=== PATIENT | female | born 1930 | race Hispanic/Latino ===

== ENCOUNTER 2017-03-27 20:13 | Emergency (ER) | payer MEDICARE ==
--- NOTE | 2017-03-27 20:27 | C.PDOC ---
History Of Present Illness Patient presents to ED with complaints of tiredness, weakness and throat discomfort intermittently for 10 days. Patient states symptoms worsened after she received the flu vaccine. Patient denies nausea, vomiting, diarrhea, cough, fever or any other complaints at this time. Time Seen by Provider: 03/27/17 20:27 Chief Complaint (Nursing): Flu-like Symptoms History Per: Patient History/Exam Limitations: no limitations Onset/Duration Of Symptoms: Days Current Symptoms Are (Timing): Still Present Location Of Pain: Throat Sick Contacts (Context): None Associated Symptoms: denies: Nausea, Vomiting, Diarrhea Ear Symptoms: Bilateral: None Severity: Mild Pain Scale Rating Of: 2 Past Medical History Reviewed: Historical Data, Nursing Documentation, Vital Signs Vital Signs: Last Vital Signs Temp 97 F L 03/28/17 00:11 Pulse 70 03/28/17 00:11 Resp 20 03/28/17 00:11 BP 114/78 03/28/17 00:11 Pulse Ox 98 03/28/17 00:11 - Medical History PMH: HTN Surgical History: No Surg Hx Family History: States: No Known Family Hx - Social History Hx Tobacco Use: No Hx Alcohol Use: No Hx Substance Use: No Review Of Systems Constitutional: Negative for: Fever, Chills ENT: Positive for: Throat Pain Respiratory: Negative for: Cough Gastrointestinal: Negative for: Nausea, Vomiting, Diarrhea Skin: Negative for: Rash Neurological: Positive for: Weakness Physical Exam - Physical Exam Appears: Non-toxic, No Acute Distress Skin: Warm, Dry, No Rash Head: Normacephalic Eye(s): bilateral: PERRL, EOMI Ear(s): Bilateral: Normal Oral Mucosa: Moist Throat: Erythema (Mild), No Exudate, No Drooling Neck: Supple Cardiovascular: Rhythm Regular Respiratory: No Rales, No Rhonchi, No Wheezing Gastrointestinal/Abdominal: Soft, No Tenderness, No Guarding, No Rebound Neurological/Psych: Oriented x3, Normal Speech (Speaking in full sentences) ED Course And Treatment - Laboratory Results Result Diagrams: 03/27/17 20:55 03/27/17 21:22 ECG: Interpreted By Me, Viewed By Me O2 Sat by Pulse Oximetry: 96 (RA) Pulse Ox Interpretation: Normal - Radiology CXR: Interpreted by Me, Viewed By Me CXR Interpretation: No: Infiltrates, Fracture, Pnemothorax Reevaluation Time: 00:46 Reassessment Condition: Improved Disposition Counseled Patient/Family Regarding: Studies Performed, Diagnosis, Need For Followup - Disposition Referrals: [facility] [Outside] [facility] [Outside] Disposition: HOME/ ROUTINE Disposition Time: 20:27 Condition: FAIR Instructions: Viral Syndrome (ED) Forms: [facility] (Sammarinese) - Clinical Impression Clinical Impression: Viral syndrome - Scribe Statement The provider has reviewed the documentation as recorded by the Scribcasi Hernadez All medical record entries made by the Ummibcasi were at my direction and personally dictated by me. I have reviewed the chart and agree that the record accurately reflects my personal performance of the history, physical exam, medical decision making, and the department course for this patient. I have also personally directed, reviewed, and agree with the discharge instructions and disposition.
[2017-03-27 21:00] LABS: BASO # 0.1 K/uL (0.0-0.2); EOS # 0.3 K/uL (0.0-0.7); EOS % 4.5 % (0.0-4.0); LYMPH # 2.7 K/uL (1.0-4.3); LYMPH % 35.2 % (20.0-40.0); MEAN CELL VOLUME 88.8 fL (81.0-99.0); MEAN CORPUSCULAR HEMOGLOBIN 30.3 pg (27.0-31.0); MEAN CORPUSCULAR HGB CONC 34.1 g/dL (33.0-37.0); MEAN PLATELET VOLUME 10.8 fL (7.2-11.7); MONO # 0.5 K/uL (0.0-0.8); RED CELL DISTRIBUTION WIDTH 13.4 % (11.5-14.5); WHITE BLOOD COUNT 7.6 K/uL (4.8-10.8)
[2017-03-27 21:34] LABS: POTASSIUM 3.5 mmol/L (3.6-5.2)
[2017-03-27 21:36] LABS: BILIRUBIN,TOTAL 1.2 mg/dL (0.2-1.3)
[2017-03-27 21:37] LABS: ALB/GLOB RATIO 1.4 (1.0-2.1); CALCIUM 8.8 mg/dl (8.6-10.4); TOTAL PROTEIN 6.8 g/dL (6.3-8.3)
[2017-03-28 00:12] VITALS: RESP 20
[2017-03-28 00:40] LABS: RBC URINE 1 /hpf (0-3); URINE BACTERIA RARE (<OCC); URINE BILIRUBIN NEGATIVE (NEGATIVE); URINE BLOOD NEGATIVE (NEGATIVE); URINE COLOR Yellow (YELLOW); URINE GLUCOSE (UA) NORMAL (Normal); URINE KETONE NEGATIVE (NEGATIVE); URINE LEUKOCYTE ESTERASE TRACE Leu/uL (Negative); URINE PROTEIN NEGATIVE (NEGATIVE); URINE UROBILINOGEN NORMAL mg/dL (0.2-1.0); WBC URINE 3 /hpf (0-5)
[2017-03-28 02:23] VITALS: BP 138/85; PULSE 75; TEMP 98; O2SAT 95
--- NOTE | 2017-03-28 10:03 | RAD ---
PROCEDURE: CHEST RADIOGRAPH, 1 VIEW HISTORY: SOB COMPARISON: 04/10/2013 FINDINGS: LUNGS: Clear. PLEURA: No pneumothorax or pleural fluid seen. CARDIOVASCULAR: No radiographic findings to suggest acute or significant cardiovascular disease. OSSEOUS STRUCTURES: No significant abnormalities. VISUALIZED UPPER ABDOMEN: Normal. OTHER FINDINGS: None. IMPRESSION: No active disease. No acute/significant interval changes.
== END 2017-03-28 02:23 | disposition home or self-care (01) ==
LOC: C.ER 20:13
DX: B34.9 Viral infection, unspecified (principal); I10 Essential (primary) hypertension

== ENCOUNTER 2017-05-03 16:21 | Inpatient (IN) | payer MEDICARE ==
--- NOTE | 2017-05-03 17:22 | C.PDOC ---
History Of Present Illness 87 y/o female presents to ED with complaints of generalized body pain status post falling earlier today secondary to feeling dizzy. Patient states she got up this morning feeling dizzy and was walking around apartment when she fell and was unable to get up until daughter went to check on her prior to arrival and called 911. Patient reports she did not have loc but remained on floor and currently complaints of pain to neck, dorsal spin, left wrist, right shoulder and right knee. Patient denies nausea, vomiting, vision changes, numbness, weakness or any other complaints at this time. Time Seen by Provider: 05/03/17 16:39 Chief Complaint (Nursing): Medical Clearance History Per: Patient History/Exam Limitations: no limitations Onset/Duration Of Symptoms: Hrs Current Symptoms Are (Timing): Still Present Past Medical History Reviewed: Historical Data, Nursing Documentation, Vital Signs Vital Signs: Last Vital Signs Temp 98.4 F 05/03/17 16:40 Pulse 87 05/03/17 16:40 Resp 22 05/03/17 16:40 BP 142/48 L 05/03/17 16:40 Pulse Ox 86 L 05/03/17 20:17 - Medical History PMH: HTN Surgical History: No Surg Hx Family History: States: No Known Family Hx - Social History Hx Tobacco Use: No Hx Alcohol Use: No Hx Substance Use: No Review Of Systems Constitutional: Negative for: Fever, Chills Eyes: Negative for: Vision Change Cardiovascular: Negative for: Chest Pain Gastrointestinal: Negative for: Nausea, Vomiting Musculoskeletal: Positive for: Neck Pain, Shoulder Pain, Hand Pain Skin: Negative for: Rash Neurological: Positive for: Dizziness. Negative for: Weakness, Numbness Physical Exam - Physical Exam Appears: Non-toxic, No Acute Distress Skin: Warm, Dry, Ecchymosis (to right knee and right shoulder ) Head: Atraumatic, Normacephalic Eye(s): bilateral: Normal Inspection, PERRL, EOMI Oral Mucosa: Moist Neck: Midline Cervical Tenderness, Supple, Other (Dorsal spine tenderness) Cardiovascular: Rhythm Regular Respiratory: Normal Breath Sounds, No Rales, No Rhonchi, No Wheezing Gastrointestinal/Abdominal: Soft, No Tenderness, No Guarding, No Rebound Back: No CVA Tenderness Extremity: Capillary Refill (<2 seconds), No Deformity, Other ( Pain with movement of legs ) Extremity: Bilateral: Normal ROM (Hip and pelvis) Pulses: Left Radial: Normal, Right Radial: Normal Neurological/Psych: Oriented x3, Normal Motor, Normal Sensation ED Course And Treatment - Laboratory Results Result Diagrams: 05/03/17 19:34 05/03/17 19:34 Lab Interpretation: Abnormal (WBC 16.2 with left shift, slightly worse renal insufficiency, Hypokalemia 2.9, CPK 144, Troponin 0.322) ECG: Interpreted By Tx ECG Rhythm: Sinus Rhythm, 1st Degree HB, ST/T Changes (anterolaterally) O2 Sat by Pulse Oximetry: 86 (RA) Pulse Ox Interpretation: Abnormal - CT Scan/US Head w/o contrast Other Rad Studies (CT/US): Read By Radiologist, Radiology Report Reviewed CT/US Interpretation: PROCEDURE: CT HEAD WITHOUT CONTRAST. HISTORY: fall. COMPARISON: None available. TECHNIQUE: Axial computed tomography images were obtained through the head/brain without intravenous contrast. Radiation dose: Total exam DLP = 835.71 mGy-cm. This CT exam was performed using one or more of the following dose reduction techniques: Automated exposure control, adjustment of the mA and/or kV according to patient size, and/or use of iterative reconstruction technique. FINDINGS: HEMORRHAGE: No intracranial hemorrhage. BRAIN: Diffuse atrophy with prominence of the ventricles and sulci noted. No mass effect or edema. Prominent pituitary measures approximately 9 mm. Scattered periventricular and subcortical white matter hypodensities, which are nonspecific, but often seen with chronic microvascular ischemic disease. Please note that MRI with diffusion imaging is more sensitive in the detection of acute ischemic event. VENTRICLES: No hydrocephalus. CALVARIUM: Unremarkable. PARANASAL SINUSES: Unremarkable as visualized. No significant inflammatory changes. 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 Correlate clinically. OTHER FINDINGS: Partial opacification of the right external auditory canal, likely cerumen. IMPRESSION: Generalized atrophy. Nonspecific white matter changes. Prominent pituitary measuring approximately 9 mm. Follow-up as indicated. Cervical spine w/o contrast Other Rad Studies (CT/US): Read By Radiologist, Radiology Report Reviewed Reevaluation Time: 20:25 Reassessment Condition: Unchanged (Still c/o generalized pain.) - Physician Consult Information Time Consulting Physician Contacted: 20:26 Physician Contacted: Marvin Herrera Outcome Of Conversation: Patient to be admitted to [facility]. Disposition - Disposition Disposition: HOSPITALIZED Disposition Time: 20:28 Condition: STABLE - POA Present On Arrival: None - Clinical Impression Clinical Impression: Dizziness, Fall, Renal insufficiency, Elevated troponin - Scribe Statement The provider has reviewed the documentation as recorded by the Ummibcasi Hernadez All medical record entries made by the Ummibcasi were at my direction and personally dictated by me. I have reviewed the chart and agree that the record accurately reflects my personal performance of the history, physical exam, medical decision making, and the department course for this patient. I have also personally directed, reviewed, and agree with the discharge instructions and disposition.
--- NOTE | 2017-05-03 17:49 | CT ---
PROCEDURE: CT HEAD WITHOUT CONTRAST. HISTORY: fall COMPARISON: None available. TECHNIQUE: Axial computed tomography images were obtained through the head/brain without intravenous contrast. Radiation dose: Total exam DLP = 835.71 mGy-cm. This CT exam was performed using one or more of the following dose reduction techniques: Automated exposure control, adjustment of the mA and/or kV according to patient size, and/or use of iterative reconstruction technique. FINDINGS: HEMORRHAGE: No intracranial hemorrhage. BRAIN: Diffuse atrophy with prominence of the ventricles and sulci noted. No mass effect or edema. Prominent pituitary measures approximately 9 mm. Scattered periventricular and subcortical white matter hypodensities, which are nonspecific, but often seen with chronic microvascular ischemic disease. Please note that MRI with diffusion imaging is more sensitive in the detection of acute ischemic event. VENTRICLES: No hydrocephalus. CALVARIUM: Unremarkable. PARANASAL SINUSES: Unremarkable as visualized. No significant inflammatory changes. 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 Correlate clinically. OTHER FINDINGS: Partial opacification of the right external auditory canal, likely cerumen. IMPRESSION: Generalized atrophy. Nonspecific white matter changes. Prominent pituitary measuring approximately 9 mm. Follow-up as indicated.
--- NOTE | 2017-05-03 17:58 | CT ---
CT cervical spine without IV contrast Indication: Fall Comparison: None available Technique: Axial computed tomography images were obtained of the cervical spine without the use of intravenous contrast. Coronal and sagittal reformatted images were created and reviewed. This CT exam was performed using 1 or more of the falling dose reduction techniques: Automated exposure control, adjustment of the MAA and/or kV according to patient size, and/or use of iterative reconstruction technique. Radiation dose: Total exam DLP = 477.09 mGy-cm. Findings: Osseous demineralization. Multilevel degenerative changes including intervertebral disc space narrowing and osteophyte formation. No acute displaced fracture or subluxation identified. The prevertebral soft tissues and spinolaminar lines appear intact. The dens tip appears intact. There is proper alignment of the lateral masses of C1 with the C2 vertebral body. Included portions of the thyroid gland appear unremarkable. Included portions of lung apices demonstrate probable atelectasis/scarring on the left. Partially imaged dense atherosclerotic calcifications. Partial opacification of the right external auditory canal, likely cerumen. Impression: No evidence of acute fracture or subluxation. Multilevel degenerative changes including intervertebral disc space narrowing and osteophyte formation. Additional incidental findings as above. Osseous demineralization.
[2017-05-03 19:39] LABS: BASO # 0.1 K/uL (0.0-0.2); LYMPH # 1.5 K/uL (1.0-4.3); MEAN CELL VOLUME 88.4 fL (81.0-99.0); MONO # 0.6 K/uL (0.0-0.8)
[2017-05-03 19:50] LABS: BASO % 0.7 % (0.0-2.0); LYMPH % 9.5 % (20.0-40.0); MEAN PLATELET VOLUME 11.2 fL (7.2-11.7); MONO % 3.5 % (0.0-10.0); PLATELET COUNT 185 K/uL (130-400); RED CELL DISTRIBUTION WIDTH 13.7 % (11.5-14.5); WHITE BLOOD COUNT 16.2 K/uL (4.8-10.8)
[2017-05-03 19:53] LABS: ALB/GLOB RATIO 1.2 (1.0-2.1); BILIRUBIN,TOTAL 1.4 mg/dL (0.2-1.3); CALCIUM 8.7 mg/dl (8.6-10.4); POTASSIUM 2.9 mmol/L (3.6-5.2)
[2017-05-03 19:57] LABS: RBC URINE 11 /hpf (0-3); TRANSITIONAL EPITHIAL 2 /hpf (0-3); URINE BACTERIA MOD (<OCC); URINE BILIRUBIN NEGATIVE (NEGATIVE); URINE BLOOD 2+ (NEGATIVE); URINE COLOR Yellow (YELLOW); URINE GLUCOSE (UA) NORMAL (Normal); URINE KETONE NEGATIVE (NEGATIVE); URINE LEUKOCYTE ESTERASE 3+ Leu/uL (Negative); URINE PROTEIN 1+ mg/dL (NEGATIVE); URINE UROBILINOGEN NORMAL mg/dL (0.2-1.0); WBC URINE 135 /hpf (0-5)
[2017-05-03] MEDS ORDERED: Potassium Chloride 20 mEq ER Tab PO STA (19:58)
[2017-05-03] MEDS ORDERED: Potassium Chloride 20 mEq ER Tab PO ONE (20:06)
[2017-05-03 20:09] LABS: LARGE PLATELETS PRESENT; NEUTROPHIL 88 % (50-75); TOTAL CELLS COUNTED 100
[2017-05-03 20:15] LABS: TROPONIN I 0.322 ng/mL (0.00-0.120)
[2017-05-03] MEDS ORDERED: Sodium Chloride 0.9% 500 ML IV ONE (21:38)
--- NOTE | 2017-05-03 21:50 | CP.PCM.HP ---
History of Present Illness - History of Present Illness History of Present Illness: Chief complaint: Found on the floor History of present illness: 87-year-old female with history of hypertension, hypothyroidism, chronic and constipation, history of UTI in the past, osteoarthritis, chronic pruritus came to the emergency room after patient was found on the floor. Patient lives in the [employer] house. This morning patient's family was trying to reach her, and there was no response for long time. In the family called the people in the building, and around 3 p.m. they went in the house, and they found that she was on the floor was not able to move. She was conscious. She was responding. Called ambulance. And patient was brought to the emergency room. Few weeks ago patient had a similar episode, and that time she had a fall but she was not hospitalized. Patient was not clear what happened, she was trying to get out of the bed to the commode, and she slipped and fall, there was not clear about the syncopal, or loss of consciousness. But patient was not able to move. She has extensive bruises involving the right side of the body. In the emergency room patient was communicating, conscious, able to move all 4 extremities. She was not in any distress. Initial labs are showing mild positive troponin, and needed hospitalization. When I examined the patient she was conscious, comfortable, but she was having dryness of the throat, and also feeling cold. She guarding noted. She was having difficulty in urination, also has a significant constipation. No nausea no vomiting, pain generalized more on the right side. Past medical history: Hypothyroidism, hypertension, insomnia, constipation, chronic pruritus Allergies: Erythromycin sulfamethoxazole ampicillin Surgical history hysterectomy many years ago. Family history significant for arthritis diabetes and heart disease Social history: Former smoker, no alcohol currently living in the [employer] od[place] Current medications: Patient is taking aspirin, chlorthalidone, isosorbide, amlodipine, levothyroxine , metoprolol, omeprazole, tramadol Review of systems: Patient is company of body pain, generalized, more on the right side. Headache noted. No nausea no vomiting. Oriented. Constipation. Recurrent fall Severe osteoarthritis. Vital signs reviewed Elderly female, dry mucosa No neck vein distention noted, mostly collapsed Chest good air entry bilaterally, no wheezing or rales noted CVS regular heart sound, no murmur noted Abdomen soft, nontender. Extremities no pedal edema [employer] alert awake oriented -3, no functional neurological deficit Generalized ecchymosis more on the right side Labs reviewed X-ray of the chest showing no evidence of acute infiltrate. oligemia noted on the right side Mild positive troponin. Elevated creatinine level CPK is normal. EKG mildly changes noted Assessment and recommendation: 87-year-old female with a history of hypertension, hypothyroidism, chronic constipation, history of UTI, hypokalemia, urinary tract infection, osteoarthritis, history of recurrent fall came to the emergency room after a fall, and found on the floor. Patient is currently having non-ST elevation MA, associated with possible urinary tract infection. Possible demand ischemia. Because of the immobility, underlying venous thromboembolism cannot be ruled out , given the very highly elevated d-dimer. Patient also has hypoxia at this time. But the patient has a recurrent fall, not a candidate for TPA. We'll start the patient on anticoagulation, I feel, echocardiogram, cardiology evaluation. We'll get a VQ scan, Prognosis is poor condition critical will f/u Present on Admission - Present on Admission Any Indicators Present on Admission: No History of DVT/PE: No History of Uncontrolled Diabetes: No Urinary Catheter: No Decubitus Ulcer Present: No Past Patient History - Past Social History Smoking Status: Never Smoked - CARDIAC Hx Hypertension: Yes - PSYCHIATRIC Hx Substance Use: No - SURGICAL HISTORY Hx Surgeries: No - ANESTHESIA Hx Anesthesia: No Meds Allergies/Adverse Reactions: Allergies Allergy/AdvReac Type Severity Reaction Status Date / Time erythromycin base Allergy Verified 03/27/17 20:35 Results - Vital Signs Recent Vital Signs: Last Vital Signs Temp 98.4 F 05/03/17 16:40 Pulse 87 05/03/17 16:40 Resp 22 05/03/17 16:40 BP 142/48 L 05/03/17 16:40 Pulse Ox 86 L 05/03/17 20:29 - Labs Result Diagrams: 05/03/17 19:34 05/03/17 19:34 Labs: Laboratory Results - last 24 hr 05/03/17 05/03/17 05/03/17 16:32 19:34 19:34 WBC 16.2 H D RBC 4.29 Hgb 12.9 Hct 38.0 MCV 88.4 MCH 30.0 MCHC 34.0 RDW 13.7 Plt Count 185 MPV 11.2 Neut % (Auto) 86.3 H Lymph % (Auto) 9.5 L [facility] % (Auto) 3.5 Eos % (Auto) 0.0 Baso % (Auto) 0.7 Neut # 14.0 H Lymph # 1.5 [facility] # 0.6 Eos # 0.0 Baso # 0.1 Neutrophils % (Manual) 88 H Band Neutrophils % 3 H Lymphocytes % (Manual) 6 L Monocytes % (Manual) 3 Platelet Estimate Normal Large Platelets Present Microcytosis (manual) Slight Ovalocytes Slight Sodium Potassium Chloride Carbon Dioxide Anion Gap BUN Creatinine Est GFR ( Amer) Est GFR (Non-Af Amer) POC Glucose (mg/dL) 150 H Random Glucose Calcium Total Bilirubin AST ALT Alkaline Phosphatase Total Creatine Kinase Troponin I Total Protein Albumin Globulin Albumin/Globulin Ratio Urine Color Yellow Urine Clarity Hazy Urine pH 5.0 Ur Specific Alvo 1.018 Urine Protein 1+ H Urine Glucose (UA) Normal Urine Ketones Negative Urine Blood 2+ H Urine Nitrate Negative Urine Bilirubin Negative Urine Urobilinogen Normal Ur Leukocyte Esterase 3+ H Urine WBC (Auto) 135 H Urine RBC (Auto) 11 H Ur Squamous Epith Cells 41 H Ur Transition Epith Cell 2 Urine Bacteria Mod H Hyaline Casts 6-10 H 05/03/17 19:34 WBC RBC Hgb Hct MCV MCH MCHC RDW Plt Count MPV Neut % (Auto) Lymph % (Auto) [facility] % (Auto) Eos % (Auto) Baso % (Auto) Neut # Lymph # [facility] # Eos # Baso # Neutrophils % (Manual) Band Neutrophils % Lymphocytes % (Manual) Monocytes % (Manual) Platelet Estimate Large Platelets Microcytosis (manual) Ovalocytes Sodium 139 Potassium 2.9 L Chloride 98 Carbon Dioxide 27 Anion Gap 17 BUN 36 H Creatinine 1.9 H Est GFR ( Amer) 30 Est GFR (Non-Af Amer) 25 POC Glucose (mg/dL) Random Glucose 147 H Calcium 8.7 Total Bilirubin 1.4 H AST 26 ALT 16 Alkaline Phosphatase 81 Total Creatine Kinase 144 H Troponin I 0.3220 H* Total Protein 7.0 Albumin 3.8 Globulin 3.2 Albumin/Globulin Ratio 1.2 Urine Color Urine Clarity Urine pH Ur Specific Alvo Urine Protein Urine Glucose (UA) Urine Ketones Urine Blood Urine Nitrate Urine Bilirubin Urine Urobilinogen Ur Leukocyte Esterase Urine WBC (Auto) Urine RBC (Auto) Ur Squamous Epith Cells Ur Transition Epith Cell Urine Bacteria Hyaline Casts
[2017-05-03] MEDS ORDERED: Vancomycin 1 gm/NS 200 ml 1 GM/200 ML BAG IVPB ONE (22:00)
[2017-05-03] MEDS ORDERED: Vancomycin 1 gm/NS 200 ml 1 GM/200 ML BAG IVPB SCH (22:00)
[2017-05-03] MEDS: Sodium Chloride 0.9% 1,000 ML IV SCH (23:24)
[2017-05-04] MEDS: Ciprofloxacin 200mg/100ml D5W 100 ML IVPB SCH ×2 (00:13→10:21)
--- NOTE | 2017-05-04 01:07 | CP.PCM.PN ---
Subjective - Date & Time of Evaluation Date of Evaluation: 05/04/17 Time of Evaluation: 01:06 - Subjective Subjective: Emergency triple lumen catheter was inserted into the right side of the neck internal jugular vein using the sonogram. Patient tolerated the procedure well. X-ray showing good placement. Objective - Vital Signs/Intake and Output Vital Signs (last 24 hours): Temp Pulse Resp BP Pulse Ox 98.4 F 72 23 123/54 L 94 L 05/03/17 16:40 05/03/17 23:24 05/04/17 00:08 05/03/17 23:24 05/03/17 23:24 - Medications Medications: Current Medications Acetaminophen (Tylenol 325mg Tab) 650 mg PO Q6 PRN PRN Reason: Pain, Mild (1-3) Albuterol/Ipratropium (Duoneb 3 Mg/0.5 Mg (3 Ml) Ud) 3 ml INH RQ6 MODE[facility] Enoxaparin Sodium (Lovenox) 60 mg SC Q12 MODE[facility] Sodium Chloride (Sodium Chloride 0.9%) 1,000 mls @ 100 mls/hr IV .Q10H MODE[facility] Last Admin: 05/03/17 23:24 Dose: 100 mls/hr Ciprofloxacin (Cipro 200mg/100ml D5w) 100 mls @ 67 mls/hr IVPB Q12H MODE[facility] Last Admin: 05/04/17 00:13 Dose: 67 mls/hr Pantoprazole Sodium (Protonix Inj) 40 mg IVP DAILY MODESTA - Labs Labs: 05/03/17 19:34 05/03/17 19:34
[2017-05-04 01:22] LABS: BASO % 0.4 % (0.0-2.0); EOS % 0.3 % (0.0-4.0); HEMATOCRIT 31.8 % (34.0-47.0); LYMPH # 1.8 K/uL (1.0-4.3); MEAN CELL VOLUME 89.2 fL (81.0-99.0); MEAN CORPUSCULAR HEMOGLOBIN 30.8 pg (27.0-31.0); MEAN CORPUSCULAR HGB CONC 34.6 g/dL (33.0-37.0); MEAN PLATELET VOLUME 11.2 fL (7.2-11.7); MONO # 0.5 K/uL (0.0-0.8); RED CELL DISTRIBUTION WIDTH 13.5 % (11.5-14.5); WHITE BLOOD COUNT 11.7 K/uL (4.8-10.8)
[2017-05-04] MEDS: Albuterol-Ipratrop 3 mg / 0.5 (3 ml) UD INH SCH ×4 (01:33→19:36)
[2017-05-04] MEDS: Magnesium Sulfate 1 gm in D5W 1 GM/100 ML BAG IVPB SCH ×2 (02:53→03:57)
[2017-05-04 06:59] LABS: ALB/GLOB RATIO 1.1 (1.0-2.1); BILIRUBIN,TOTAL 1.2 mg/dL (0.2-1.3); CALCIUM 7.7 mg/dl (8.6-10.4); MAGNESIUM 2.4 mg/dL (1.6-2.3); PHOSPHOROUS 2.4 mg/dL (2.5-4.5); TOTAL PROTEIN 5.7 g/dL (6.3-8.3)
[2017-05-04 07:01] LABS: INR 1.2
[2017-05-04 07:12] LABS: TROPONIN I 0.341 ng/mL (0.00-0.120)
[2017-05-04 07:17] LABS: BASO # 0.1 K/uL (0.0-0.2); BASO % 0.5 % (0.0-2.0); EOS # 0.2 K/uL (0.0-0.7); EOS % 1.7 % (0.0-4.0); HEMATOCRIT 32.1 % (34.0-47.0); LYMPH # 1.9 K/uL (1.0-4.3); LYMPH % 14.9 % (20.0-40.0); MEAN CELL VOLUME 87.9 fL (81.0-99.0); MEAN CORPUSCULAR HGB CONC 35.3 g/dL (33.0-37.0); MEAN PLATELET VOLUME 11.6 fL (7.2-11.7); MONO # 0.5 K/uL (0.0-0.8); MONO % 4.2 % (0.0-10.0); RED CELL DISTRIBUTION WIDTH 13.6 % (11.5-14.5); WHITE BLOOD COUNT 12.6 K/uL (4.8-10.8)
[2017-05-04] MEDS: Sodium Chloride 0.9% 1,000 ML IV SCH ×3 (07:45→17:45)
--- NOTE | 2017-05-04 08:45 | RAD ---
HISTORY: TLC COMPARISON: 05/03/2017. FINDINGS: The right IJV central venous catheter terminates at the cavoatrial junction. LUNGS: There are relatively low lung volumes. No focal consolidation. There is persistent mild pulmonary venous congestion. PLEURA: No significant pleural effusion identified, no pneumothorax apparent. CARDIOVASCULAR: Mild cardiomegaly and prominent central vasculature. Atherosclerotic aortic arch calcifications are present. OSSEOUS STRUCTURES: Within normal limits for the patient's age. VISUALIZED UPPER ABDOMEN: Normal. OTHER FINDINGS: None. IMPRESSION: The right IJV central venous catheter terminates at the cavoatrial junction. Persistent mild pulmonary venous congestion.
--- NOTE | 2017-05-04 09:18 | RAD ---
HISTORY: low pulse ox COMPARISON: 03/27/2017. FINDINGS: LUNGS: The lungs are well inflated. No focal consolidation. PLEURA: No significant pleural effusion identified, no pneumothorax apparent. CARDIOVASCULAR: The heart is normal in size. Atherosclerotic aortic arch calcifications are present. OSSEOUS STRUCTURES: No significant abnormalities. VISUALIZED UPPER ABDOMEN: Normal. OTHER FINDINGS: None. IMPRESSION: No active pulmonary disease.
[2017-05-04] MEDS: Enoxaparin 60 mg Syringe SC SCH ×2 (09:54→22:18)
[2017-05-04] MEDS ORDERED: Enoxaparin 40 mg Syringe SC SCH (10:00)
--- NOTE | 2017-05-04 10:03 | RAD ---
PROCEDURE: Left Wrist Radiographs. HISTORY: Fall COMPARISON: None. FINDINGS: BONES: There is no acute displaced fracture or bone destruction. Bone alignment is normal. There is periarticular bone demineralization. JOINTS: There is mild degenerative osteoarthrosis in the radiocarpal and scaphotrapezium joints. There is also mild degenerative osteoarthrosis in the carpometacarpal joints. SOFT TISSUES: Normal. OTHER FINDINGS: None. IMPRESSION: No acute displaced fracture or dislocation.
--- NOTE | 2017-05-04 10:04 | RAD ---
PROCEDURE: Radiographs of the Right Shoulder HISTORY: Fall COMPARISON: No prior. FINDINGS: BONES: Bone alignment is normal. There is no acute displaced fracture or bone destruction. There is diffuse bone demineralization. JOINTS: There is moderate degenerative osteoarthrosis in the acromioclavicular joint with reduced joint space and marginal osteophytes. There is also mild degenerative osteoarthrosis in the glenohumeral joint. SOFT TISSUES: Normal. OTHER FINDINGS: None. IMPRESSION: No acute displaced fracture or dislocation.
--- NOTE | 2017-05-04 10:35 | NM ---
COMPARISON: May 02, 2017. TECHNIQUE: 9.1 mCi technetium 99-m Xe-133 Gas. 3.9 mCI technetium 99-m MAA administered intravenously. FINDINGS: VENTILATION COMPONENT: Normal. PERFUSION COMPONENT: Multiple perfusion defects in the absence of ventilatory correlate consistent with high probability pulmonary embolism. The largest defect is in the right upper lobe. Smaller mismatches identified in the periphery of the left lung. IMPRESSION: Highprobability ventilation perfusion scan for pulmonary embolism. Critical results protocol: Study completed 09:05 Results conveyed verbally at 10:26. Interpretation finalized and available for review 10:30 May 04, 2017.
--- NOTE | 2017-05-04 10:40 | RAD ---
PROCEDURE: Right Knee Radiographs. HISTORY: Fall COMPARISON: None. FINDINGS: BONES: There is diffuse bone demineralization. There is no acute displaced fracture or bone destruction. JOINTS: There is moderate tricompartmental degenerative osteoarthrosis with reduced joint spaces, marginal osteophytes and chondrocalcinosis, worse in the medial compartment. JOINT EFFUSION: There is a small suprapatellar joint effusion. OTHER FINDINGS: None. IMPRESSION: No acute fracture or dislocation.
--- NOTE | 2017-05-04 11:08 | RAD ---
HISTORY: Fall COMPARISON: No prior. FINDINGS: BONES: There is diffuse bone demineralization. There is an age indeterminate superior endplate compression deformity in the T5 vertebral body. There is no bone destruction. Bone alignment is normal. DISC SPACES: There is mild multilevel degenerative disc disease with anterior osteophytes and reduced disc heights. SOFT TISSUES: Normal. OTHER FINDINGS: None. IMPRESSION: Age indeterminate superior endplate compression deformity in the T5 vertebral body. .
--- NOTE | 2017-05-04 11:09 | RAD ---
PROCEDURE: Radiographs of the Lumbar Spine. HISTORY: fall COMPARISON: No prior. FINDINGS: BONES: There is mild dextrocurvature in the lumbar spine. There is 9 mm retrolisthesis of L1 on L2. There is diffuse bone demineralization. There are age indeterminate superior endplate compression deformities in the L2 and L3 vertebral bodies, worse at L2 and an age indeterminate inferior endplate compression deformity in the L1 vertebral body. DISC SPACES: There is mild multilevel degenerative disc disease with anterior spurring, reduced disc heights and multilevel facet arthropathy, worse at L5-S1 with OTHER FINDINGS: There are advanced atherosclerotic abdominal aortic calcifications. IMPRESSION: Age indeterminate superior endplate compression fracture deformities in the L2 and L3 vertebral bodies, worse at L2 and inferior endplate compression deformity in L1.
--- NOTE | 2017-05-04 11:31 | VASCLAB ---
PROCEDURE: Lower Extremity Venous Duplex Exam. HISTORY: DVT PRIORS: None. TECHNIQUE: Bilateral common femoral, femoral, popliteal and posterior tibial, peroneal and great saphenous veins were evaluated. Flow was assessed with color Doppler, compressibility, assessment of phasic flow and augmentation response. Report prepared by BELTRAN Elkins FINDINGS: RIGHT: 1. Common Femoral Vein: 1.1. Compressibility - Partial: Thrombus - Acute : Flow - Reduced 2. Femoral Vein: 2.1. Compressibility - Partial: Thrombus - Acute : Flow - Reduced 3. Popliteal Vein: 3.1. Compressibility - Partial: Thrombus - Acute : 4. Posterior Tibial Vein: 4.1. Not examined 5. Peroneal Vein: 5.1. Not examined 6. Great Saphenous Vein: 6.1. Not examined LEFT: 1. Common Femoral Vein: 1.1. Compressibility - Fully compressible: Thrombus - None: Flow - Phasic: Augmentation -Normal: Reflux - None. 2. Femoral Vein: (proximal and views only) 2.1. Compressibility - Fully compressible: Thrombus - None: Flow - Phasic: Augmentation -Normal: Reflux - None. 3. Popliteal Vein: 3.1. Not examined 4. Posterior Tibial Vein: 4.1. Not examined 5. Peroneal Vein: 5.1. Not examined 6. Great Saphenous Vein: 6.1. Not examined OTHER FINDINGS: None. IMPRESSION: Right: Partial acute deep vein thrombosis of the right common femoral, femoral and popliteal veins, resulting in reduction of the venous return. Left: No evidence of deep vein thrombosis of the left common femoral and femoral veins. Limited examination, due to patient discomfort and limited body position. Dr. Hang Garcia and SURGERY ASSISTANT Mae, were present at the time of the findings, at 10:50 a.m.
[2017-05-04] MEDS ORDERED: Potassium Phosphate 15 MMOLE in Dextrose 5% In Water 250 ML IV ONE (13:00)
--- NOTE | 2017-05-04 15:21 | CP.CCUPN ---
CCU Subjective - Physician Review Subjective (Free Text): 05/04/17 15:21 Patient seen and examined at bedside. No acute events overnight. Patient resting comfortably in bed with some shortness of breath and b/l LE pain. She denies chest pain and palpitations. CCU Objective - Vital Signs / Intake & Output Vital Signs (Last 4 hours): Vital Signs Temp Pulse Resp BP Pulse Ox 05/04/17 14:00 91 H 42 H 88 L 05/04/17 13:50 88 17 89 L 05/04/17 13:49 87 29 H 132/51 L 89 L 05/04/17 13:40 87 45 H 92 L 05/04/17 13:30 88 43 H 91 L 05/04/17 13:20 91 H 41 H 91 L 05/04/17 13:10 90 41 H 91 L 05/04/17 13:00 90 40 H 93 L 05/04/17 12:50 91 H 30 H 92 L 05/04/17 12:49 91 H 40 H 137/62 91 L 05/04/17 12:40 88 39 H 90 L 05/04/17 12:30 91 H 26 H 88 L 05/04/17 12:20 90 39 H 89 L 05/04/17 12:10 89 32 H 89 L 05/04/17 12:03 89 37 H 131/56 L 91 L 05/04/17 12:00 101 F H 90 36 H 131/56 L 89 L 05/04/17 11:50 90 36 H 88 L 05/04/17 11:40 91 H 40 H 87 L 05/04/17 11:30 90 33 H 87 L Intake and Output (Last 8hrs): Intake & Output 05/04/17 05/04/17 05/04/17 06:59 14:59 22:59 Intake Total 1200 1070 Output Total 500 485 Balance 700 585 Weight 192 lb Intake: Intake, IV Amount 1200 950 Right Internal Jugular 1200 800 Right Proximal Port 150 Internal Jugular Oral 120 Output: Urine 500 485 Urethral (Awad) 500 485 - Physical Exam Head: Positive for: Atraumatic, Normocephalic Pupils: Positive for: PERRL Extroacular Muscles: Positive for: EOMI Conjunctiva: Positive for: Normal Mouth: Positive for: Moist Mucous Membranes Respiratory/Chest: Positive for: Clear to Auscultation, Good Air Exchange, Other (on venti mask). Negative for: Wheezes, Rales, Rhonchi Cardiovascular: Positive for: Regular Rate and Rhythm, Normal S1, S2 Abdomen: Positive for: Normal Bowel Sounds. Negative for: Tenderness, Distention, Peritoneal Signs Upper Extremity: Positive for: Normal Inspection Lower Extremity: Positive for: Edema, CALF TENDERNESS, Tenderness Neurological: Positive for: GCS=15 Skin: Positive for: Warm, Dry, Normal Color. Negative for: Rashes Psychiatric: Positive for: Alert, Oriented x 3, Normal Insight, Normal Concentration - Medications Active Medications: Active Medications Generic Name Dose Route Start Last Admin Trade Name Freq PRN Reason Stop Dose Admin Acetaminophen 650 mg 05/03/17 21:47 05/04/17 12:21 Tylenol 325mg Tab PO 650 mg Q6 PRN Administration Pain, Mild (1-3) Albuterol/Ipratropium 3 ml 05/04/17 02:00 05/04/17 14:00 Duoneb 3 Mg/0.5 Mg (3 Ml) Ud INH 3 ml RQ6 MODESTA Administration Aspirin 81 mg 05/05/17 10:00 Aspirin Chewable PO DAILY MODESTA Ciprofloxacin 500 mg 05/05/17 10:00 Cipro PO DAILY MODESTA Enoxaparin Sodium 60 mg 05/04/17 10:00 05/04/17 09:54 Lovenox SC 60 mg Q12 MODESTA Administration Sodium Chloride 1,000 mls @ 100 mls/hr 05/03/17 21:45 05/04/17 14:55 Sodium Chloride 0.9% IV 100 mls/hr .Q10H MODESTA Administration Potassium Phosphate 15 mmole/ 255 mls @ 50 mls/hr 05/04/17 13:00 05/04/17 12: 22 Dextrose IV 05/04/17 18:05 50 mls/hr ONCE ONE Administration Pantoprazole Sodium 40 mg 05/04/17 10:00 05/04/17 09:55 Protonix Inj IVP 40 mg DAILY MODESTA Administration Rosuvastatin Calcium 2.5 mg 05/04/17 22:00 Crestor PO HS MODESTA - Patient Studies Lab Studies: Lab Studies 05/04/17 05/04/17 05/04/17 Range/Units 06:34 06:34 06:34 WBC 12.6 H (4.8-10.8) K/uL RBC 3.65 L (3.80-5.20) Mil/uL Hgb 11.3 (11.0-16.0) g/dL Hct 32.1 L (34.0-47.0) % MCV 87.9 (81.0-99.0) fL MCH 31.0 (27.0-31.0) pg MCHC 35.3 (33.0-37.0) g/dL RDW 13.6 (11.5-14.5) % Plt Count 151 (130-400) K/uL MPV 11.6 (7.2-11.7) fL Neut % (Auto) 78.7 H (50.0-75.0) % Lymph % (Auto) 14.9 L (20.0-40.0) % Upson % (Auto) 4.2 (0.0-10.0) % Eos % (Auto) 1.7 (0.0-4.0) % Baso % (Auto) 0.5 (0.0-2.0) % Neut # 9.9 H (1.8-7.0) K/uL Lymph # 1.9 (1.0-4.3) K/uL Upson # 0.5 (0.0-0.8) K/uL Eos # 0.2 (0.0-0.7) K/uL Baso # 0.1 (0.0-0.2) K/uL Neutrophils % (Manual) (50-75) % Band Neutrophils % (0-2) % Lymphocytes % (Manual) (20-40) % Monocytes % (Manual) (0-10) % Platelet Estimate (NORMAL) Large Platelets Microcytosis (manual) Ovalocytes PT 13.7 H (9.7-12.2) SECONDS INR 1.2 APTT 26 (21-34) SECONDS D-Dimer, Quantitative (0-243) ng/mlDDU Sodium 136 (132-148) mmol/L Potassium 3.0 L (3.6-5.2) mmol/L Chloride 102 (98-107) mmol/L Carbon Dioxide 26 (22-30) mmol/L Anion Gap 12 (10-20) BUN 29 H (7-17) mg/dL Creatinine 1.7 H (0.7-1.2) mg/dL Est GFR ( Amer) 34 Est GFR (Non-Af Amer) 28 POC Glucose (mg/dL) (65-110) mg/dL Random Glucose 132 H (65-105) mg/dL Calcium 7.7 L (8.6-10.4) mg/dl Phosphorus 2.4 L Magnesium 2.4 H Total Bilirubin 1.2 (0.2-1.3) mg/dL AST 25 (14-36) U/L ALT 16 (9-52) U/L Alkaline Phosphatase 72 (38-126) U/L Total Creatine Kinase 167 H (30-135) U/L CK-MB (Mass) 1.05 Troponin I 0.3410 H* (0.00-0.120) ng/mL Total Protein 5.7 L (6.3-8.3) g/dL Albumin 3.0 L D (3.5-5.0) g/dL Globulin 2.7 (2.2-3.9) gm/dL Albumin/Globulin Ratio 1.1 (1.0-2.1) Urine Color (YELLOW) Urine Clarity (Clear) Urine pH (5.0-8.0) Ur Specific Sulphur (1.003-1.030) Urine Protein (NEGATIVE) mg/dL Urine Glucose (UA) (Normal) mg/dL Urine Ketones (NEGATIVE) mg/dL Urine Blood (NEGATIVE) Urine Nitrate (NEGATIVE) Urine Bilirubin (NEGATIVE) Urine Urobilinogen (0.2-1.0) mg/dL Ur Leukocyte Esterase (Negative) Jonelle/uL Urine WBC (Auto) (0-5) /hpf Urine RBC (Auto) (0-3) /hpf Ur Squamous Epith Cells (0-5) /hpf Ur Transition Epith Cell (0-3) /hpf Urine Bacteria (<OCC) Hyaline Casts (0-2) /lpf 05/04/17 05/04/17 05/03/17 Range/Units 01:07 01:07 22:22 WBC 11.7 H (4.8-10.8) K/uL RBC 3.56 L (3.80-5.20) Mil/uL Hgb 11.0 (11.0-16.0) g/dL Hct 31.8 L (34.0-47.0) % MCV 89.2 (81.0-99.0) fL MCH 30.8 (27.0-31.0) pg MCHC 34.6 (33.0-37.0) g/dL RDW 13.5 (11.5-14.5) % Plt Count 147 (130-400) K/uL MPV 11.2 (7.2-11.7) fL Neut % (Auto) 80.3 H (50.0-75.0) % Lymph % (Auto) 15.0 L (20.0-40.0) % Upson % (Auto) 4.0 (0.0-10.0) % Eos % (Auto) 0.3 (0.0-4.0) % Baso % (Auto) 0.4 (0.0-2.0) % Neut # 9.4 H (1.8-7.0) K/uL Lymph # 1.8 (1.0-4.3) K/uL Upson # 0.5 (0.0-0.8) K/uL Eos # 0.0 (0.0-0.7) K/uL Baso # 0.0 (0.0-0.2) K/uL Neutrophils % (Manual) (50-75) % Band Neutrophils % (0-2) % Lymphocytes % (Manual) (20-40) % Monocytes % (Manual) (0-10) % Platelet Estimate (NORMAL) Large Platelets Microcytosis (manual) Ovalocytes PT (9.7-12.2) SECONDS INR APTT (21-34) SECONDS D-Dimer, Quantitative > 5250 H (0-243) ng/mlDDU Sodium Cancelled (132-148) mmol/L Potassium Cancelled (3.6-5.2) mmol/L Chloride Cancelled (98-107) mmol/L Carbon Dioxide Cancelled (22-30) mmol/L Anion Gap Cancelled (10-20) BUN Cancelled (7-17) mg/dL Creatinine Cancelled (0.7-1.2) mg/dL Est GFR ( Amer) Cancelled Est GFR (Non-Af Amer) Cancelled POC Glucose (mg/dL) (65-110) mg/dL Random Glucose Cancelled (65-105) mg/dL Calcium Cancelled (8.6-10.4) mg/dl Phosphorus Cancelled Magnesium Cancelled Total Bilirubin Cancelled (0.2-1.3) mg/dL AST Cancelled (14-36) U/L ALT Cancelled (9-52) U/L Alkaline Phosphatase Cancelled (38-126) U/L Total Creatine Kinase Cancelled (30-135) U/L CK-MB (Mass) Cancelled Troponin I Cancelled (0.00-0.120) ng/mL Total Protein Cancelled (6.3-8.3) g/dL Albumin Cancelled (3.5-5.0) g/dL Globulin Cancelled (2.2-3.9) gm/dL Albumin/Globulin Ratio Cancelled (1.0-2.1) Urine Color (YELLOW) Urine Clarity (Clear) Urine pH (5.0-8.0) Ur Specific Sulphur (1.003-1.030) Urine Protein (NEGATIVE) mg/dL Urine Glucose (UA) (Normal) mg/dL Urine Ketones (NEGATIVE) mg/dL Urine Blood (NEGATIVE) Urine Nitrate (NEGATIVE) Urine Bilirubin (NEGATIVE) Urine Urobilinogen (0.2-1.0) mg/dL Ur Leukocyte Esterase (Negative) Jonelle/uL Urine WBC (Auto) (0-5) /hpf Urine RBC (Auto) (0-3) /hpf Ur Squamous Epith Cells (0-5) /hpf Ur Transition Epith Cell (0-3) /hpf Urine Bacteria (<OCC) Hyaline Casts (0-2) /lpf 05/03/17 05/03/17 05/03/17 Range/Units 19:34 19:34 19:34 WBC 16.2 H D (4.8-10.8) K/uL RBC 4.29 (3.80-5.20) Mil/uL Hgb 12.9 (11.0-16.0) g/dL Hct 38.0 (34.0-47.0) % MCV 88.4 (81.0-99.0) fL MCH 30.0 (27.0-31.0) pg MCHC 34.0 (33.0-37.0) g/dL RDW 13.7 (11.5-14.5) % Plt Count 185 (130-400) K/uL MPV 11.2 (7.2-11.7) fL Neut % (Auto) 86.3 H (50.0-75.0) % Lymph % (Auto) 9.5 L (20.0-40.0) % Upson % (Auto) 3.5 (0.0-10.0) % Eos % (Auto) 0.0 (0.0-4.0) % Baso % (Auto) 0.7 (0.0-2.0) % Neut # 14.0 H (1.8-7.0) K/uL Lymph # 1.5 (1.0-4.3) K/uL Upson # 0.6 (0.0-0.8) K/uL Eos # 0.0 (0.0-0.7) K/uL Baso # 0.1 (0.0-0.2) K/uL Neutrophils % (Manual) 88 H (50-75) % Band Neutrophils % 3 H (0-2) % Lymphocytes % (Manual) 6 L (20-40) % Monocytes % (Manual) 3 (0-10) % Platelet Estimate Normal (NORMAL) Large Platelets Present Microcytosis (manual) Slight Ovalocytes Slight PT (9.7-12.2) SECONDS INR APTT (21-34) SECONDS D-Dimer, Quantitative (0-243) ng/mlDDU Sodium 139 (132-148) mmol/L Potassium 2.9 L (3.6-5.2) mmol/L Chloride 98 (98-107) mmol/L Carbon Dioxide 27 (22-30) mmol/L Anion Gap 17 (10-20) BUN 36 H (7-17) mg/dL Creatinine 1.9 H (0.7-1.2) mg/dL Est GFR ( Amer) 30 Est GFR (Non-Af Amer) 25 POC Glucose (mg/dL) (65-110) mg/dL Random Glucose 147 H (65-105) mg/dL Calcium 8.7 (8.6-10.4) mg/dl Phosphorus Magnesium Total Bilirubin 1.4 H (0.2-1.3) mg/dL AST 26 (14-36) U/L ALT 16 (9-52) U/L Alkaline Phosphatase 81 (38-126) U/L Total Creatine Kinase 144 H (30-135) U/L CK-MB (Mass) Troponin I 0.3220 H* (0.00-0.120) ng/mL Total Protein 7.0 (6.3-8.3) g/dL Albumin 3.8 (3.5-5.0) g/dL Globulin 3.2 (2.2-3.9) gm/dL Albumin/Globulin Ratio 1.2 (1.0-2.1) Urine Color Yellow (YELLOW) Urine Clarity Hazy (Clear) Urine pH 5.0 (5.0-8.0) Ur Specific Sulphur 1.018 (1.003-1.030) Urine Protein 1+ H (NEGATIVE) mg/dL Urine Glucose (UA) Normal (Normal) mg/dL Urine Ketones Negative (NEGATIVE) mg/dL Urine Blood 2+ H (NEGATIVE) Urine Nitrate Negative (NEGATIVE) Urine Bilirubin Negative (NEGATIVE) Urine Urobilinogen Normal (0.2-1.0) mg/dL Ur Leukocyte Esterase 3+ H (Negative) Jonelle/uL Urine WBC (Auto) 135 H (0-5) /hpf Urine RBC (Auto) 11 H (0-3) /hpf Ur Squamous Epith Cells 41 H (0-5) /hpf Ur Transition Epith Cell 2 (0-3) /hpf Urine Bacteria Mod H (<OCC) Hyaline Casts 6-10 H (0-2) /lpf 05/03/17 Range/Units 16:32 WBC (4.8-10.8) K/uL RBC (3.80-5.20) Mil/uL Hgb (11.0-16.0) g/dL Hct (34.0-47.0) % MCV (81.0-99.0) fL MCH (27.0-31.0) pg MCHC (33.0-37.0) g/dL RDW (11.5-14.5) % Plt Count (130-400) K/uL MPV (7.2-11.7) fL Neut % (Auto) (50.0-75.0) % Lymph % (Auto) (20.0-40.0) % Upson % (Auto) (0.0-10.0) % Eos % (Auto) (0.0-4.0) % Baso % (Auto) (0.0-2.0) % Neut # (1.8-7.0) K/uL Lymph # (1.0-4.3) K/uL Upson # (0.0-0.8) K/uL Eos # (0.0-0.7) K/uL Baso # (0.0-0.2) K/uL Neutrophils % (Manual) (50-75) % Band Neutrophils % (0-2) % Lymphocytes % (Manual) (20-40) % Monocytes % (Manual) (0-10) % Platelet Estimate (NORMAL) Large Platelets Microcytosis (manual) Ovalocytes PT (9.7-12.2) SECONDS INR APTT (21-34) SECONDS D-Dimer, Quantitative (0-243) ng/mlDDU Sodium (132-148) mmol/L Potassium (3.6-5.2) mmol/L Chloride (98-107) mmol/L Carbon Dioxide (22-30) mmol/L Anion Gap (10-20) BUN (7-17) mg/dL Creatinine (0.7-1.2) mg/dL Est GFR ( Amer) Est GFR (Non-Af Amer) POC Glucose (mg/dL) 150 H (65-110) mg/dL Random Glucose (65-105) mg/dL Calcium (8.6-10.4) mg/dl Phosphorus Magnesium Total Bilirubin (0.2-1.3) mg/dL AST (14-36) U/L ALT (9-52) U/L Alkaline Phosphatase (38-126) U/L Total Creatine Kinase (30-135) U/L CK-MB (Mass) Troponin I (0.00-0.120) ng/mL Total Protein (6.3-8.3) g/dL Albumin (3.5-5.0) g/dL Globulin (2.2-3.9) gm/dL Albumin/Globulin Ratio (1.0-2.1) Urine Color (YELLOW) Urine Clarity (Clear) Urine pH (5.0-8.0) Ur Specific Sulphur (1.003-1.030) Urine Protein (NEGATIVE) mg/dL Urine Glucose (UA) (Normal) mg/dL Urine Ketones (NEGATIVE) mg/dL Urine Blood (NEGATIVE) Urine Nitrate (NEGATIVE) Urine Bilirubin (NEGATIVE) Urine Urobilinogen (0.2-1.0) mg/dL Ur Leukocyte Esterase (Negative) Jonelle/uL Urine WBC (Auto) (0-5) /hpf Urine RBC (Auto) (0-3) /hpf Ur Squamous Epith Cells (0-5) /hpf Ur Transition Epith Cell (0-3) /hpf Urine Bacteria (<OCC) Hyaline Casts (0-2) /lpf Laboratory Results - last 24 hr 05/03/17 05/03/17 05/03/17 16:32 19:34 19:34 WBC 16.2 H D RBC 4.29 Hgb 12.9 Hct 38.0 MCV 88.4 MCH 30.0 MCHC 34.0 RDW 13.7 Plt Count 185 MPV 11.2 Neut % (Auto) 86.3 H Lymph % (Auto) 9.5 L Upson % (Auto) 3.5 Eos % (Auto) 0.0 Baso % (Auto) 0.7 Neut # 14.0 H Lymph # 1.5 Upson # 0.6 Eos # 0.0 Baso # 0.1 Neutrophils % (Manual) 88 H Band Neutrophils % 3 H Lymphocytes % (Manual) 6 L Monocytes % (Manual) 3 Platelet Estimate Normal Large Platelets Present Microcytosis (manual) Slight Ovalocytes Slight PT INR APTT D-Dimer, Quantitative Sodium Potassium Chloride Carbon Dioxide Anion Gap BUN Creatinine Est GFR ( Amer) Est GFR (Non-Af Amer) POC Glucose (mg/dL) 150 H Random Glucose Calcium Phosphorus Magnesium Total Bilirubin AST ALT Alkaline Phosphatase Total Creatine Kinase CK-MB (Mass) Troponin I Total Protein Albumin Globulin Albumin/Globulin Ratio Urine Color Yellow Urine Clarity Hazy Urine pH 5.0 Ur Specific Sulphur 1.018 Urine Protein 1+ H Urine Glucose (UA) Normal Urine Ketones Negative Urine Blood 2+ H Urine Nitrate Negative Urine Bilirubin Negative Urine Urobilinogen Normal Ur Leukocyte Esterase 3+ H Urine WBC (Auto) 135 H Urine RBC (Auto) 11 H Ur Squamous Epith Cells 41 H Ur Transition Epith Cell 2 Urine Bacteria Mod H Hyaline Casts 6-10 H 05/03/17 05/03/17 05/04/17 19:34 22:22 01:07 WBC 11.7 H RBC 3.56 L Hgb 11.0 Hct 31.8 L MCV 89.2 MCH 30.8 MCHC 34.6 RDW 13.5 Plt Count 147 MPV 11.2 Neut % (Auto) 80.3 H Lymph % (Auto) 15.0 L Upson % (Auto) 4.0 Eos % (Auto) 0.3 Baso % (Auto) 0.4 Neut # 9.4 H Lymph # 1.8 Upson # 0.5 Eos # 0.0 Baso # 0.0 Neutrophils % (Manual) Band Neutrophils % Lymphocytes % (Manual) Monocytes % (Manual) Platelet Estimate Large Platelets Microcytosis (manual) Ovalocytes PT INR APTT D-Dimer, Quantitative > 5250 H Sodium 139 Potassium 2.9 L Chloride 98 Carbon Dioxide 27 Anion Gap 17 BUN 36 H Creatinine 1.9 H Est GFR ( Amer) 30 Est GFR (Non-Af Amer) 25 POC Glucose (mg/dL) Random Glucose 147 H Calcium 8.7 Phosphorus Magnesium Total Bilirubin 1.4 H AST 26 ALT 16 Alkaline Phosphatase 81 Total Creatine Kinase 144 H CK-MB (Mass) Troponin I 0.3220 H* Total Protein 7.0 Albumin 3.8 Globulin 3.2 Albumin/Globulin Ratio 1.2 Urine Color Urine Clarity Urine pH Ur Specific Sulph[place] Urine Protein Urine Glucose (UA) Urine Ketones Urine Blood Urine Nitrate Urine Bilirubin Urine Urobilinogen Ur Leukocyte Esterase Urine WBC (Auto) Urine RBC (Auto) Ur Squamous Epith Cells Ur Transition Epith Cell Urine Bacteria Hyaline Casts 05/04/17 05/04/17 05/04/17 01:07 06:34 06:34 WBC 12.6 H RBC 3.65 L Hgb 11.3 Hct 32.1 L MCV 87.9 MCH 31.0 MCHC 35.3 RDW 13.6 Plt Count 151 MPV 11.6 Neut % (Auto) 78.7 H Lymph % (Auto) 14.9 L Upson % (Auto) 4.2 Eos % (Auto) 1.7 Baso % (Auto) 0.5 Neut # 9.9 H Lymph # 1.9 Upson # 0.5 Eos # 0.2 Baso # 0.1 Neutrophils % (Manual) Band Neutrophils % Lymphocytes % (Manual) Monocytes % (Manual) Platelet Estimate Large Platelets Microcytosis (manual) Ovalocytes PT 13.7 H INR 1.2 APTT 26 D-Dimer, Quantitative Sodium Cancelled Potassium Cancelled Chloride Cancelled Carbon Dioxide Cancelled Anion Gap Cancelled BUN Cancelled Creatinine Cancelled Est GFR ( Amer) Cancelled Est GFR (Non-Af Amer) Cancelled POC Glucose (mg/dL) Random Glucose Cancelled Calcium Cancelled Phosphorus Cancelled Magnesium Cancelled Total Bilirubin Cancelled AST Cancelled ALT Cancelled Alkaline Phosphatase Cancelled Total Creatine Kinase Cancelled CK-MB (Mass) Cancelled Troponin I Cancelled Total Protein Cancelled Albumin Cancelled Globulin Cancelled Albumin/Globulin Ratio Cancelled Urine Color Urine Clarity Urine pH Ur Specific [place] Urine Protein Urine Glucose (UA) Urine Ketones Urine Blood Urine Nitrate Urine Bilirubin Urine Urobilinogen Ur Leukocyte Esterase Urine WBC (Auto) Urine RBC (Auto) Ur Squamous Epith Cells Ur Transition Epith Cell Urine Bacteria Hyaline Casts 05/04/17 06:34 WBC RBC Hgb Hct MCV MCH MCHC RDW Plt Count MPV Neut % (Auto) Lymph % (Auto) Upson % (Auto) Eos % (Auto) Baso % (Auto) Neut # Lymph # Upson # Eos # Baso # Neutrophils % (Manual) Band Neutrophils % Lymphocytes % (Manual) Monocytes % (Manual) Platelet Estimate Large Platelets Microcytosis (manual) Ovalocytes PT INR APTT D-Dimer, Quantitative Sodium 136 Potassium 3.0 L Chloride 102 Carbon Dioxide 26 Anion Gap 12 BUN 29 H Creatinine 1.7 H Est GFR ( Amer) 34 Est GFR (Non-Af Amer) 28 POC Glucose (mg/dL) Random Glucose 132 H Calcium 7.7 L Phosphorus 2.4 L Magnesium 2.4 H Total Bilirubin 1.2 AST 25 ALT 16 Alkaline Phosphatase 72 Total Creatine Kinase 167 H CK-MB (Mass) 1.05 Troponin I 0.3410 H* Total Protein 5.7 L Albumin 3.0 L D Globulin 2.7 Albumin/Globulin Ratio 1.1 Urine Color Urine Clarity Urine pH Ur Specific [place] Urine Protein Urine Glucose (UA) Urine Ketones Urine Blood Urine Nitrate Urine Bilirubin Urine Urobilinogen Ur Leukocyte Esterase Urine WBC (Auto) Urine RBC (Auto) Ur Squamous Epith Cells Ur Transition Epith Cell Urine Bacteria Hyaline Casts EKG/Cardiology Studies: Cardiology / EKG Studies 05/03/17 16:29 EKG [ELECTROCARDIOGRAM] Stat Comment: Mode Of Transportation: Reason For Exam: weakness 05/03/17 16:34 EKG [ELECTROCARDIOGRAM] Stat Comment: Mode Of Transportation: Reason For Exam: weakness Fingerstick Blood Sugar Results: 150 Review of Systems - Review of Systems All systems: reviewed and no additional remarkable complaints except (as per HPI ) Critical Care Progress Note - Nutrition Nutrition: Nutrition Category Date Time Status Regular Diet [DIET] Diets 05/03/17 Dinner Active Assessment/Plan - Assessment and Plan (Free Text) Assessment: 87-year-old female with history of hypertension, hypothyroidism, chronic and constipation, history of UTI in the past, osteoarthritis, chronic pruritus who presents with sub-massive PE. Plan: Neuro A&Ox3 Tylenol 650 mg Q6 PRN Cardio NSR BP stable Dr. Strong consulted - recs appreciated Echo showed elevated RA pressure LE US: acute partial DVT of the right common femoral, femoral, and popliteal vein For IVC filer tomorrow Crestor 2.5 mg QHS ASA 81 mg QD Lovenox 60 mg SC Q12 Respiratory - PE O2 sat 90 on ventimask VQ scan high probability for PE Renal I 1200 O 500 Balance 700 BUN/Cr: 29/1.7 Fluids, electrolytes, nutrition K 3 - replaced Calcium 7.7 Mag 2.4 Phos 2.4 Albumin 3 Infectious disease - UTI T 101 WBC 12.6 UA +Leuk esterase Cipro 500 mg PO QD Hematology - DVT H&H: 11.3/32.1 Plt: 151 D-Dimer 5250 PT/PTT/INR: 13.7/26/1.6 Lovenox 60 mg SC Q12 GI AST/ALT: 25/16 Tbili: 1.2 Endocrine monitor blood glucose Prophylaxis Protonix 40 mg IV
--- NOTE | 2017-05-04 18:11 | CARD ---
APPROVED REPORT EXAM: Two-dimensional and M-mode echocardiogram with Doppler and color Doppler. Other Information Quality : TDSRhythm : INDICATION Dizziness and Vertigo Renal Insufficiency RISK FACTORS Hypertension 2D DIMENSIONS IVSd1.1 (0.7-1.1cm)LVDd2.9 (3.9-5.9cm) PWd1.1 (0.7-1.1cm)LVDs2.1 (2.5-4.0cm) FS (%) 29.0 %LVEF (%)57.5 (>50%) M-Mode DIMENSIONS Left Atrium (MM)3.80 (2.5-4.0cm)Aortic Root3.10 (2.2-3.7cm) Aortic Cusp Exc.1.41 (1.5-2.0cm) Mitral Valve MV E Iqtnlwlz10.5cm/sMV A Mavzgmvj547.1cm/sE/A ratio0.5 TDI E/Lateral E'0.0E/Medial E'0.0 Tricuspid Valve TR Peak Xnsoybeu979lm/sTR Peak Gr.[id number] LEFT VENTRICLE The left ventricle is normal size. There is normal left ventricular wall thickness. The left ventricular function is normal. The left ventricular ejection fraction is within the normal range. There is normal LV segmental wall motion. Transmitral Doppler flow pattern is Grade I-abnormal relaxation pattern. RIGHT VENTRICLE The right ventricle is normal size. There is normal right ventricular wall thickness. The right ventricular systolic function is normal. ATRIA The left atrium size is normal. The right atrium is mildly dilated. The atrial septum is aneurysmal. AORTIC VALVE The aortic valve is severely sclerotic. No aortic regurgitation is present. MITRAL VALVE The mitral valve is mildly thickened. There is no mitral valve stenosis. There is no mitral valve regurgitation noted. TRICUSPID VALVE The tricuspid valve is normal in structure. There is severe tricuspid regurgitation. There is severe pulmonary hypertension. GREAT VESSELS The aortic root is normal in size. The IVC is normal in size and collapses >50% with inspiration. <Conclusion> The left ventricle is normal size. There is normal left ventricular wall thickness. The left ventricular function is normal. The left ventricular ejection fraction is within the normal range. There is normal LV segmental wall motion. Transmitral Doppler flow pattern is Grade I-abnormal relaxation pattern. The aortic valve is severely sclerotic. There is severe tricuspid regurgitation. There is severe pulmonary hypertension.
--- NOTE | 2017-05-04 20:21 | CP.PCM.PN ---
Subjective - Date & Time of Evaluation Date of Evaluation: 05/04/17 Time of Evaluation: 16:15 - Subjective Subjective: CC: Syncope HPI: 87 F with hx of HTN admitted for syncope. Subsequent work up revealed patient had Pulmonary embolism, DVT ECHO reviewed: Severe pulmonary HTN and right heart strain Dx: Submassive PE Due to fall and head injury decided against EKOS lytic therapy Will treat with traditional anticoagulation therapy Patient has limited ambulation potential for recurrent DVT. Patient already has severe Pulm HTN Decided to protect with IVC filter. Explained the risk and benefits and the risks Patient and daughter agreed Objective - Vital Signs/Intake and Output Vital Signs (last 24 hours): Temp Pulse Resp BP Pulse Ox 100.2 F H 96 H 28 H 138/37 L 93 L 05/04/17 16:00 05/04/17 19:10 05/04/17 19:10 05/04/17 18:49 05/04/17 19:10 Intake and Output: 05/04/17 05/05/17 18:59 06:59 Intake Total 2009 Output Total 675 Balance 1335 - Medications Medications: Current Medications Acetaminophen (Tylenol 325mg Tab) 650 mg PO Q6 PRN PRN Reason: Pain, Mild (1-3) Last Admin: 05/04/17 12:21 Dose: 650 mg Albuterol/Ipratropium (Duoneb 3 Mg/0.5 Mg (3 Ml) Ud) 3 ml INH RQ6 [facility] Last Admin: 05/04/17 19:36 Dose: 3 ml Aspirin (Aspirin Chewable) 81 mg PO DAILY [facility] Ciprofloxacin (Cipro) 500 mg PO DAILY [facility] Enoxaparin Sodium (Lovenox) 60 mg SC Q12 [facility] Last Admin: 05/04/17 09:54 Dose: 60 mg Sodium Chloride (Sodium Chloride 0.9%) 1,000 mls @ 100 mls/hr IV .Q10H [facility] Last Admin: 05/04/17 17:45 Dose: Not Given Lactulose (Enulose) 20 gm PO Q6H [facility] Pantoprazole Sodium (Protonix Inj) 40 mg IVP DAILY [facility] Last Admin: 05/04/17 09:55 Dose: 40 mg Rosuvastatin Calcium (Crestor) 2.5 mg PO HS [facility] - Labs Labs: 05/04/17 06:34 05/04/17 06:34 PT 13.7 SECONDS (9.7-12.2) H 05/04/17 06:34 INR 1.2 05/04/17 06:34 APTT 26 SECONDS (21-34) 05/04/17 06:34
[2017-05-04] MEDS: Rosuvastatin Calcium 2.5 mg Tab PO SCH (22:15)
[2017-05-05] MEDS: Albuterol-Ipratrop 3 mg / 0.5 (3 ml) UD INH SCH ×4 (01:10→21:01)
[2017-05-05] MEDS: Sodium Chloride 0.9% 1,000 ML IV SCH ×4 (01:21→10:25)
[2017-05-05 06:40] LABS: BASO # 0.1 K/uL (0.0-0.2); BASO % 0.7 % (0.0-2.0); EOS # 0.3 K/uL (0.0-0.7); EOS % 3.1 % (0.0-4.0); HEMATOCRIT 28.2 % (34.0-47.0); LYMPH # 1.7 K/uL (1.0-4.3); LYMPH % 17.1 % (20.0-40.0); MEAN CELL VOLUME 89.3 fL (81.0-99.0); MEAN CORPUSCULAR HEMOGLOBIN 31.7 pg (27.0-31.0); MEAN CORPUSCULAR HGB CONC 35.4 g/dL (33.0-37.0); MEAN PLATELET VOLUME 11.9 fL (7.2-11.7); MONO # 0.6 K/uL (0.0-0.8); MONO % 6.4 % (0.0-10.0); RED CELL DISTRIBUTION WIDTH 13.7 % (11.5-14.5); WHITE BLOOD COUNT 9.8 K/uL (4.8-10.8)
[2017-05-05 07:09] LABS: ALB/GLOB RATIO 1.1 (1.0-2.1); BILIRUBIN,TOTAL 0.9 mg/dL (0.2-1.3); CALCIUM 7.2 mg/dl (8.6-10.4); MAGNESIUM 1.7 mg/dL (1.6-2.3); PHOSPHOROUS 2.7 mg/dL (2.5-4.5); POTASSIUM 2.9 mmol/L (3.6-5.2)
[2017-05-05] MEDS ORDERED: Iodixanol 320 MG/ML 100 ML BOTTLE IV ONE (08:16)
[2017-05-05] MEDS ORDERED: Midazolam 2 MG/2 ML VIAL ONE (08:39)
--- NOTE | 2017-05-05 08:40 | CP.CCUPN ---
<Maria Ines Yao - Last Filed: 05/05/17 13:56> CCU Subjective - Physician Review Subjective (Free Text): 05/05/17 08:18 Patient seen and examined at bedside post IVC filter insertion. Patient resting comfortably in bed with no new complaints at this time. Patient feeling a little better today however she is still having some abdominal discomfort and constipation. Patient otherwise denies chest pain, SOB, nausea, vomiting, diarrhea. CCU Objective - Vital Signs / Intake & Output Vital Signs (Last 4 hours): Vital Signs Pulse Resp BP Pulse Ox 05/05/17 07:00 93 H 18 93 L 05/05/17 06:49 146/66 05/05/17 06:20 93 H 24 94 L 05/05/17 05:49 141/63 05/05/17 05:00 85 30 H 92 L 05/05/17 04:49 132/60 Intake and Output (Last 8hrs): Intake & Output 05/04/17 05/05/17 05/05/17 22:59 06:59 14:59 Intake Total 1590 920 100 Output Total 450 530 120 Balance 1140 390 -20 Weight 193 lb 12.8 oz Intake: Intake, IV Amount 900 800 100 Right Internal Jugular 800 800 100 Right Proximal Port 100 Internal Jugular Oral 690 120 0 Output: Urine 450 530 120 Urethral (Awad) 450 530 120 Other: # Bowel Movements 0 0 0 - Physical Exam Head: Positive for: Atraumatic, Normocephalic Pupils: Positive for: PERRL Extroacular Muscles: Positive for: EOMI Conjunctiva: Positive for: Normal Mouth: Positive for: Moist Mucous Membranes Respiratory/Chest: Positive for: Clear to Auscultation, Good Air Exchange, Other (on venti mask). Negative for: Wheezes, Rales, Rhonchi Cardiovascular: Positive for: Regular Rate and Rhythm, Normal S1, S2 Abdomen: Positive for: Normal Bowel Sounds. Negative for: Tenderness, Distention, Peritoneal Signs Upper Extremity: Positive for: Normal Inspection Lower Extremity: Positive for: Edema, CALF TENDERNESS, Tenderness Neurological: Positive for: GCS=15 Skin: Positive for: Warm, Dry, Normal Color. Negative for: Rashes Psychiatric: Positive for: Alert, Oriented x 3, Normal Insight, Normal Concentration - Medications Active Medications: Active Medications Generic Name Dose Route Start Last Admin Trade Name Freq PRN Reason Stop Dose Admin Acetaminophen 650 mg 12/20/17 21:47 05/04/17 12:21 Tylenol 325mg Tab PO 650 mg Q6 PRN Administration Pain, Mild (1-3) Albuterol/Ipratropium 3 ml 05/04/17 02:00 05/05/17 07:56 Duoneb 3 Mg/0.5 Mg (3 Ml) Ud INH Not Given RQ6 [facility] Aspirin 81 mg 05/05/17 10:00 Aspirin Chewable PO DAILY [facility] Ciprofloxacin 500 mg 05/05/17 10:00 Cipro PO DAILY [facility] Enoxaparin Sodium 60 mg 05/04/17 10:00 05/04/17 22:18 Lovenox SC 60 mg Q12 [facility] Administration Sodium Chloride 1,000 mls @ 100 mls/hr 05/03/17 21:45 05/05/17 03:45 Sodium Chloride 0.9% IV Not Given .Q10H [facility] Potassium Chloride 20 meq in 100 mls @ 50 mls/hr 05/05/17 12:00 Potassium Chloride 20 Meq/100 Ml IVPB 05/05/17 17:59 Q4 [facility] Lactulose 20 gm 05/04/17 20:00 05/05/17 01:20 Enulose PO Not Given Q6H [facility] Pantoprazole Sodium 40 mg 05/04/17 10:00 05/04/17 09:55 Protonix Inj IVP 40 mg DAILY [facility] Administration Rosuvastatin Calcium 2.5 mg 05/04/17 22:00 05/04/17 22:15 Crestor PO 2.5 mg HS [facility] Administration - Patient Studies Lab Studies: Microbiology Studies 05/03/17 Unknown Urine Culture - Final Urine,Clean Catch MULTIPLE SPECIES. SUGGEST REPEAT SPECIMEN. Lab Studies 05/05/17 05/05/17 Range/Units 06:28 06:28 WBC 9.8 (4.8-10.8) K/uL RBC 3.16 L (3.80-5.20) Mil/uL Hgb 10.0 L (11.0-16.0) g/dL Hct 28.2 L (34.0-47.0) % MCV 89.3 (81.0-99.0) fL MCH 31.7 H (27.0-31.0) pg MCHC 35.4 (33.0-37.0) g/dL RDW 13.7 (11.5-14.5) % Plt Count 138 (130-400) K/uL MPV 11.9 H (7.2-11.7) fL Neut % (Auto) 72.7 (50.0-75.0) % Lymph % (Auto) 17.1 L (20.0-40.0) % Milam % (Auto) 6.4 (0.0-10.0) % Eos % (Auto) 3.1 (0.0-4.0) % Baso % (Auto) 0.7 (0.0-2.0) % Neut # 7.1 H (1.8-7.0) K/uL Lymph # 1.7 (1.0-4.3) K/uL Milam # 0.6 (0.0-0.8) K/uL Eos # 0.3 (0.0-0.7) K/uL Baso # 0.1 (0.0-0.2) K/uL Sodium 136 (132-148) mmol/L Potassium 2.9 L (3.6-5.2) mmol/L Chloride 105 (98-107) mmol/L Carbon Dioxide 25 (22-30) mmol/L Anion Gap 9 L (10-20) BUN 16 (7-17) mg/dL Creatinine 1.4 H (0.7-1.2) mg/dL Est GFR ( Amer) 43 Est GFR (Non-Af Amer) 36 Random Glucose 114 H (65-105) mg/dL Calcium 7.2 L (8.6-10.4) mg/dl Phosphorus 2.7 (2.5-4.5) mg/dL Magnesium 1.7 (1.6-2.3) mg/dL Total Bilirubin 0.9 (0.2-1.3) mg/dL AST 18 (14-36) U/L ALT 19 (9-52) U/L Alkaline Phosphatase 61 (38-126) U/L Total Protein 5.0 L (6.3-8.3) g/dL Albumin 2.6 L (3.5-5.0) g/dL Globulin 2.4 (2.2-3.9) gm/dL Albumin/Globulin Ratio 1.1 (1.0-2.1) Laboratory Results - last 24 hr 05/05/17 05/05/17 06:28 06:28 WBC 9.8 RBC 3.16 L Hgb 10.0 L Hct 28.2 L MCV 89.3 MCH 31.7 H MCHC 35.4 RDW 13.7 Plt Count 138 MPV 11.9 H Neut % (Auto) 72.7 Lymph % (Auto) 17.1 L Milam % (Auto) 6.4 Eos % (Auto) 3.1 Baso % (Auto) 0.7 Neut # 7.1 H Lymph # 1.7 Milam # 0.6 Eos # 0.3 Baso # 0.1 Sodium 136 Potassium 2.9 L Chloride 105 Carbon Dioxide 25 Anion Gap 9 L BUN 16 Creatinine 1.4 H Est GFR ( Amer) 43 Est GFR (Non-Af Amer) 36 Random Glucose 114 H Calcium 7.2 L Phosphorus 2.7 Magnesium 1.7 Total Bilirubin 0.9 AST 18 ALT 19 Alkaline Phosphatase 61 Total Protein 5.0 L Albumin 2.6 L Globulin 2.4 Albumin/Globulin Ratio 1.1 Fingerstick Blood Sugar Results: 150 Review of Systems - Review of Systems All systems: reviewed and no additional remarkable complaints except (as per HPI ) Critical Care Progress Note - Nutrition Nutrition: Nutrition Category Date Time Status NPO Diet [DIET] Diets 05/05/17 Breakfast Active Assessment/Plan - Assessment and Plan (Free Text) Assessment: 87-year-old female with history of hypertension, hypothyroidism, chronic and constipation, history of UTI in the past, osteoarthritis, chronic pruritus who presents with sub-massive PE. Plan: Neuro A&Ox3 Tylenol 650 mg Q6 PRN Cardio NSR BP stable Troponin elevated (0.322, 0.341) Dr. Strong consulted - recs appreciated Echo showed elevated RA pressure LE US: acute partial DVT of the right common femoral, femoral, and popliteal vein IVC filer 05/05/17 Crestor 2.5 mg QHS ASA 81 mg QD Lovenox 60 mg SC Q12 discontinued on 05/05/17 Eliquis 5mg BID started 05/05/17 Respiratory - PE O2 sat 90 on ventimask VQ scan high probability for PE Renal Balance +2115 BUN/Cr: 16/1.4 Awad out 05/05/17 Fluids, electrolytes, nutrition K 2.9 - replaced Calcium 7.2 Albumin 2.6 Soft HHD Infectious disease - UTI Tmax 101 Tcurrent 98.4 WBC 9.8 UA +Leuk esterase Cipro 500 mg PO QD Hematology - DVT H&H: 03/11.2 Plt: 138 D-Dimer 5250 PT/PTT/INR: 13.7/26/1.6 Lovenox 60 mg SC Q12 discontinued on 05/05/17 Eliquis 5mg BID started 05/05/17 GI AST/ALT: WNL Tbili: WNL Abdominal XR: fecal stasis in the rectum and gaseous distention of the bowel Lactulose 20 g PO Q6 Miralax daily Endocrine monitor blood glucose Prophylaxis Protonix 40 mg IV <Ky Jaramillo P - Last Filed: 05/05/17 18:50> CCU Objective - Vital Signs / Intake & Output Vital Signs (Last 4 hours): Vital Signs Temp Pulse Resp BP Pulse Ox 05/05/17 16:10 94 H 35 H 91 L 05/05/17 16:00 98 F 109 H 48 H 93 L 05/05/17 15:59 121 H 45 H 151/60 H 90 L 05/05/17 15:50 106 H 50 H 05/05/17 15:40 103 H 42 H 05/05/17 15:30 107 H 42 H 05/05/17 15:20 102 H 32 H 91 L 05/05/17 15:10 96 H 33 H 94 L 05/05/17 15:00 93 H 44 H 94 L 05/05/17 14:50 98 H 25 H 90 L Intake and Output (Last 8hrs): Intake & Output 05/05/17 05/05/17 05/05/17 06:59 14:59 22:59 Intake Total 920 1190 100 Output Total 530 921 50 Balance 390 269 50 Weight 193 lb 12.8 oz Intake: Intake, IV Amount 800 650 100 Right Internal Jugular 800 650 100 Oral 120 540 Output: Urine 530 920 50 Urethral (Awad) 530 920 Urine, Voided 50 Urine/Stool Mix 1 Other: # Voids Urine, Voided 1 1 # Bowel Movements 0 1 1 - Medications Active Medications: Active Medications Generic Name Dose Route Start Last Admin Trade Name Freq PRN Reason Stop Dose Admin Acetaminophen 650 mg 05/03/17 21:47 05/05/17 11:29 Tylenol 325mg Tab PO 650 mg Q6 PRN Administration Pain, Mild (1-3) Albuterol/Ipratropium 3 ml 05/04/17 02:00 05/05/17 13:49 Duoneb 3 Mg/0.5 Mg (3 Ml) Ud INH 3 ml RQ6 [facility] Administration Apixaban 5 mg 05/05/17 10:00 05/05/17 17:27 Eliquis PO 5 mg BID [facility] Administration Aspirin 81 mg 05/05/17 10:00 05/05/17 09:47 Aspirin Chewable PO 81 mg DAILY [facility] Administration Sodium Chloride 1,000 mls @ 50 mls/hr 05/05/17 08:59 05/05/17 10:25 Sodium Chloride 0.9% IV 50 mls/hr .Q20H [facility] Administration Lactulose 20 gm 05/04/17 20:00 05/05/17 13:26 Enulose PO 20 gm Q6H [facility] Administration Pantoprazole Sodium 40 mg 05/04/17 10:00 05/05/17 09:47 Protonix Inj IVP 40 mg DAILY [facility] Administration Polyethylene Glycol 17 gm 05/05/17 11:00 05/05/17 11:33 Miralax PO 17 gm DAILY [facility] Administration Rosuvastatin Calcium 2.5 mg 05/04/17 22:00 05/04/17 22:15 Crestor PO 2.5 mg HS [facility] Administration Tramadol HCl 25 mg 05/05/17 13:20 05/05/17 13:25 Ultram PO 25 mg TID PRN Administration Pain, severe (8-10) - Patient Studies Lab Studies: Microbiology Studies 05/03/17 22:00 Blood Culture - Preliminary Blood NO GROWTH AFTER 24 HOURS 05/03/17 22:33 Blood Culture - Preliminary Blood NO GROWTH AFTER 24 HOURS 05/03/17 23:31 MRSA Culture (Admit) - Final Nose MRSA NOT DETECTED 05/03/17 Unknown Urine Culture - Final Urine,Clean Catch MULTIPLE SPECIES. SUGGEST REPEAT SPECIMEN. Lab Studies 05/05/17 05/05/17 Range/Units 06:28 06:28 WBC 9.8 (4.8-10.8) K/uL RBC 3.16 L (3.80-5.20) Mil/uL Hgb 10.0 L (11.0-16.0) g/dL Hct 28.2 L (34.0-47.0) % MCV 89.3 (81.0-99.0) fL MCH 31.7 H (27.0-31.0) pg MCHC 35.4 (33.0-37.0) g/dL RDW 13.7 (11.5-14.5) % Plt Count 138 (130-400) K/uL MPV 11.9 H (7.2-11.7) fL Neut % (Auto) 72.7 (50.0-75.0) % Lymph % (Auto) 17.1 L (20.0-40.0) % Milam % (Auto) 6.4 (0.0-10.0) % Eos % (Auto) 3.1 (0.0-4.0) % Baso % (Auto) 0.7 (0.0-2.0) % Neut # 7.1 H (1.8-7.0) K/uL Lymph # 1.7 (1.0-4.3) K/uL Milam # 0.6 (0.0-0.8) K/uL Eos # 0.3 (0.0-0.7) K/uL Baso # 0.1 (0.0-0.2) K/uL Sodium 136 (132-148) mmol/L Potassium 2.9 L (3.6-5.2) mmol/L Chloride 105 (98-107) mmol/L Carbon Dioxide 25 (22-30) mmol/L Anion Gap 9 L (10-20) BUN 16 (7-17) mg/dL Creatinine 1.4 H (0.7-1.2) mg/dL Est GFR ( Amer) 43 Est GFR (Non-Af Amer) 36 Random Glucose 114 H (65-105) mg/dL Calcium 7.2 L (8.6-10.4) mg/dl Phosphorus 2.7 (2.5-4.5) mg/dL Magnesium 1.7 (1.6-2.3) mg/dL Total Bilirubin 0.9 (0.2-1.3) mg/dL AST 18 (14-36) U/L ALT 19 (9-52) U/L Alkaline Phosphatase 61 (38-126) U/L Total Protein 5.0 L (6.3-8.3) g/dL Albumin 2.6 L (3.5-5.0) g/dL Globulin 2.4 (2.2-3.9) gm/dL Albumin/Globulin Ratio 1.1 (1.0-2.1) Laboratory Results - last 24 hr 05/05/17 05/05/17 06:28 06:28 WBC 9.8 RBC 3.16 L Hgb 10.0 L Hct 28.2 L MCV 89.3 MCH 31.7 H MCHC 35.4 RDW 13.7 Plt Count 138 MPV 11.9 H Neut % (Auto) 72.7 Lymph % (Auto) 17.1 L Milam % (Auto) 6.4 Eos % (Auto) 3.1 Baso % (Auto) 0.7 Neut # 7.1 H Lymph # 1.7 Milam # 0.6 Eos # 0.3 Baso # 0.1 Sodium 136 Potassium 2.9 L Chloride 105 Carbon Dioxide 25 Anion Gap 9 L BUN 16 Creatinine 1.4 H Est GFR ( Amer) 43 Est GFR (Non-Af Amer) 36 Random Glucose 114 H Calcium 7.2 L Phosphorus 2.7 Magnesium 1.7 Total Bilirubin 0.9 AST 18 ALT 19 Alkaline Phosphatase 61 Total Protein 5.0 L Albumin 2.6 L Globulin 2.4 Albumin/Globulin Ratio 1.1 Critical Care Progress Note - Nutrition Nutrition: Nutrition Category Date Time Status Heart Healthy Diet [DIET] Diets 05/05/17 Breakfast Active Attending/Attestation - Attestation I have personally seen and examined this patient.: Yes I have fully participated in the care of the patient.: Yes I have reviewed all pertinent clinical information: Yes Notes (Text): Assessment/Plan DVT/suspected PE s/p IVC filter, now started on Eliquis CRI UTI fever from above vs uti, changed cipro to augmentin, Chronic constipation, added miralaax, and lactulose Severe pulm htn, fall risk and bleeding risk Will transfer to tele
--- NOTE | 2017-05-05 09:08 | CP.PCM.PN ---
Subjective - Date & Time of Evaluation Date of Evaluation: 05/05/17 Time of Evaluation: 09:05 - Subjective Subjective: Patient s/p IVC ([facility] [place]) filter placement Start Elquis PO as per PE protocol (Adjust to renal dose if necessary and if recommended by Pulmonary) Will reassess in 3 months either to remove or leave it permanently Objective - Vital Signs/Intake and Output Vital Signs (last 24 hours): Temp Pulse Resp BP Pulse Ox 99.6 F 95 H 42 H 158/74 H 92 L 05/05/17 08:00 05/05/17 07:50 05/05/17 07:50 05/05/17 07:50 05/05/17 08:00 Intake and Output: 05/05/17 05/05/17 06:59 18:59 Intake Total 1570 200 Output Total 790 170 Balance 780 30 - Medications Medications: Current Medications Acetaminophen (Tylenol 325mg Tab) 650 mg PO Q6 PRN PRN Reason: Pain, Mild (1-3) Last Admin: 05/04/17 12:21 Dose: 650 mg Albuterol/Ipratropium (Duoneb 3 Mg/0.5 Mg (3 Ml) Ud) 3 ml INH RQ6 [facility] Last Admin: 05/05/17 07:56 Dose: Not Given Aspirin (Aspirin Chewable) 81 mg PO DAILY [facility] Ciprofloxacin (Cipro) 500 mg PO DAILY [facility] Enoxaparin Sodium (Lovenox) 60 mg SC Q12 [facility] Last Admin: 05/04/17 22:18 Dose: 60 mg Potassium Chloride (Potassium Chloride 20 Meq/100 Ml) 20 meq in 100 mls @ 50 mls/hr IVPB Q4 [facility] Stop: 05/05/17 17:59 Sodium Chloride (Sodium Chloride 0.9%) 1,000 mls @ 50 mls/hr IV .Q20H [facility] Lactulose (Enulose) 20 gm PO Q6H [facility] Last Admin: 05/05/17 01:20 Dose: Not Given Pantoprazole Sodium (Protonix Inj) 40 mg IVP DAILY [facility] Last Admin: 05/04/17 09:55 Dose: 40 mg Rosuvastatin Calcium (Crestor) 2.5 mg PO HS [facility] Last Admin: 05/04/17 22:15 Dose: 2.5 mg - Labs Labs: 05/05/17 06:28 05/05/17 06:28 PT 13.7 SECONDS (9.7-12.2) H 05/04/17 06:34 INR 1.2 05/04/17 06:34 APTT 26 SECONDS (21-34) 05/04/17 06:34
--- NOTE | 2017-05-05 10:56 | RAD ---
HISTORY: Ileus COMPARISON: No prior. FINDINGS: BOWEL: There is gaseous distension of the small bowel loops and colon. There is fecal stasis in the rectum. BONES: Normal. OTHER FINDINGS: An IVC filter remains in place. IMPRESSION: Fecal stasis in the rectum and gaseous distention of bowel.
[2017-05-05] MEDS ORDERED: Potassium Chloride 20 mEq ER Tab PO ONE (10:57)
[2017-05-05] MEDS ORDERED: Magnesium Sulfate 1 gm in D5W 1 GM/100 ML BAG IVPB ONE (10:58)
--- NOTE | 2017-05-05 11:00 | RAD ---
HISTORY: CHF COMPARISON: 05/03/2017 FINDINGS: The right IJV line terminates at the cavoatrial junction. LUNGS: There is severe pulmonary venous congestion, pulmonary redistribution and mild interstitial pulmonary edema. There is left basilar atelectasis. PLEURA: No significant pleural effusion identified, no pneumothorax apparent. CARDIOVASCULAR: The heart remains enlarged with prominent central vasculature. Atherosclerotic aortic arch calcifications are present. . OSSEOUS STRUCTURES: No significant abnormalities. VISUALIZED UPPER ABDOMEN: Normal. OTHER FINDINGS: Surgical clips in the right upper quadrant are related to prior cholecystectomy. IMPRESSION: Findings are most compatible with developing congestive heart failure.
[2017-05-05] MEDS: POLYETHYLENE GLYCOL 3350 17 GM/Dose PACKET PO SCH (11:33)
[2017-05-05] MEDS: Tramadol 25 mg PO PRN (13:25)
[2017-05-05] MEDS: Amoxicillin-Clav 875-125 mg Tab PO SCH (19:55)
[2017-05-05 20:01] LABS: CALCIUM 7.6 mg/dl (8.6-10.4); POTASSIUM 4.5 mmol/L (3.6-5.2)
[2017-05-05] MEDS: Rosuvastatin Calcium 2.5 mg Tab PO SCH (21:47)
[2017-05-06] MEDS: Albuterol-Ipratrop 3 mg / 0.5 (3 ml) UD INH SCH ×4 (01:14→19:25)
[2017-05-06] MEDS: Sodium Chloride 0.9% 1,000 ML IV SCH (05:54)
[2017-05-06] MEDS: Amoxicillin-Clav 875-125 mg Tab PO SCH ×2 (08:27→18:47)
[2017-05-06] MEDS: POLYETHYLENE GLYCOL 3350 17 GM/Dose PACKET PO SCH (09:21)
[2017-05-06] MEDS: Levothyroxine 100 MCG TAB PO SCH (11:21)
[2017-05-06] MEDS: Tramadol 25 mg PO PRN ×2 (12:00→18:47)
--- NOTE | 2017-05-06 15:34 | CP.PCM.PN ---
Subjective - Date & Time of Evaluation Date of Evaluation: 05/06/17 Time of Evaluation: 15:33 - Subjective Subjective: Patient had 3 episodes of BM today. She is feeling better. But weakness noted. Oxygen is on the low side. Leg swelling noted. Weakness noted Poor oral intake. Patient wanted to go to rehabilitation Vital signs reviewed No neck vein distention noted Chest good air entry bilaterally, no wheezing or rales noted CVS regular heart sound, no murmur noted Abdomen soft, nontender. Bilateral pedal edema [employer] DES[employer] alert awake oriented -3, no functional neurological deficit Labs included Nonspecific Assessment and condition: 87-year-old female with history of osteoarthritis, generalized. Hypertension. Hyperthyroidism. Renal insufficiency. Admitted with the pulmonary embolism, DVT. Status post IVC filter. On antegrade ablation. Patient will need physical therapy. Rehabilitation Objective - Vital Signs/Intake and Output Vital Signs (last 24 hours): Temp Pulse Resp BP Pulse Ox 98.3 F 96 H 20 136/79 95 05/06/17 09:27 05/06/17 13:02 05/06/17 09:27 05/06/17 09:27 05/06/17 13:02 Intake and Output: 05/06/17 05/06/17 06:59 18:59 Intake Total 560 Output Total 25 Balance 535 - Medications Medications: Current Medications Acetaminophen (Tylenol 325mg Tab) 650 mg PO Q6 PRN PRN Reason: Pain, Mild (1-3) Last Admin: 05/06/17 14:18 Dose: 650 mg Albuterol/Ipratropium (Duoneb 3 Mg/0.5 Mg (3 Ml) Ud) 3 ml INH RQ6 [facility] Last Admin: 05/06/17 13:29 Dose: 3 ml Amoxicillin/Clavulanate Potassium (Augmentin 875 Mg-125 Mg Tab) 1 tab PO Q12H [facility] Last Admin: 05/06/17 08:27 Dose: 1 tab Apixaban (Eliquis) 5 mg PO BID [facility] Last Admin: 05/06/17 09:21 Dose: 5 mg Aspirin (Aspirin Chewable) 81 mg PO DAILY [facility] Last Admin: 05/06/17 09:21 Dose: 81 mg Lactulose (Enulose) 20 gm PO HS [facility] Levothyroxine Sodium (Synthroid) 100 mcg PO DAILY@0630 [facility] Last Admin: 05/06/17 11:21 Dose: 100 mcg Pantoprazole Sodium (Protonix Inj) 40 mg IVP DAILY [facility] Last Admin: 05/06/17 09:21 Dose: 40 mg Polyethylene Glycol (Miralax) 17 gm PO DAILY [facility] Last Admin: 05/06/17 09:21 Dose: Not Given Rosuvastatin Calcium (Crestor) 2.5 mg PO HS [facility] Last Admin: 05/05/17 21:47 Dose: 2.5 mg Tramadol HCl (Ultram) 25 mg PO TID PRN PRN Reason: Pain, severe (8-10) Last Admin: 05/06/17 12:00 Dose: 25 mg - Labs Labs: 05/05/17 06:28 05/05/17 19:20 PT 13.7 SECONDS (9.7-12.2) H 05/04/17 06:34 INR 1.2 05/04/17 06:34 APTT 26 SECONDS (21-34) 05/04/17 06:34
--- NOTE | 2017-05-06 16:23 | CP.PCM.PN ---
Subjective - Date & Time of Evaluation Date of Evaluation: 05/06/17 Time of Evaluation: 11:10 - Subjective Subjective: Patient seen and evaluated Denies chest pain and dyspnea Pulmonary Embolism and DVT On anticoagulation and IVC filter placed Objective - Vital Signs/Intake and Output Vital Signs (last 24 hours): Temp Pulse Resp BP Pulse Ox 98.3 F 96 H 20 136/79 95 05/06/17 09:27 05/06/17 13:02 05/06/17 09:27 05/06/17 09:27 05/06/17 13:02 Intake and Output: 05/06/17 05/06/17 06:59 18:59 Intake Total 560 Output Total 25 Balance 535 - Medications Medications: Current Medications Acetaminophen (Tylenol 325mg Tab) 650 mg PO Q6 PRN PRN Reason: Pain, Mild (1-3) Last Admin: 05/06/17 14:18 Dose: 650 mg Albuterol/Ipratropium (Duoneb 3 Mg/0.5 Mg (3 Ml) Ud) 3 ml INH RQ6 [facility] Last Admin: 05/06/17 13:29 Dose: 3 ml Amoxicillin/Clavulanate Potassium (Augmentin 875 Mg-125 Mg Tab) 1 tab PO Q12H [facility] Last Admin: 05/06/17 08:27 Dose: 1 tab Apixaban (Eliquis) 5 mg PO BID [facility] Last Admin: 05/06/17 09:21 Dose: 5 mg Aspirin (Aspirin Chewable) 81 mg PO DAILY [facility] Last Admin: 05/06/17 09:21 Dose: 81 mg Lactulose (Enulose) 20 gm PO [facility] Levothyroxine Sodium (Synthroid) 100 mcg PO DAILY@0630 [facility] Last Admin: 05/06/17 11:21 Dose: 100 mcg Pantoprazole Sodium (Protonix Inj) 40 mg IVP DAILY [facility] Last Admin: 05/06/17 09:21 Dose: 40 mg Polyethylene Glycol (Miralax) 17 gm PO DAILY [facility] Last Admin: 05/06/17 09:21 Dose: Not Given Rosuvastatin Calcium (Crestor) 2.5 mg PO HS [facility] Last Admin: 05/05/17 21:47 Dose: 2.5 mg Tramadol HCl (Ultram) 25 mg PO TID PRN PRN Reason: Pain, severe (8-10) Last Admin: 05/06/17 12:00 Dose: 25 mg - Labs Labs: 05/05/17 06:28 05/05/17 19:20 PT 13.7 SECONDS (9.7-12.2) H 05/04/17 06:34 INR 1.2 05/04/17 06:34 APTT 26 SECONDS (21-34) 05/04/17 06:34
[2017-05-06] MEDS: Rosuvastatin Calcium 2.5 mg Tab PO SCH (22:29)
[2017-05-07] MEDS: Albuterol-Ipratrop 3 mg / 0.5 (3 ml) UD INH SCH ×4 (01:58→19:13)
[2017-05-07] MEDS: Amoxicillin-Clav 875-125 mg Tab PO SCH ×2 (06:05→18:24)
[2017-05-07] MEDS: Levothyroxine 100 MCG TAB PO SCH (06:05)
[2017-05-07] MEDS: POLYETHYLENE GLYCOL 3350 17 GM/Dose PACKET PO SCH (09:42)
[2017-05-07] MEDS: Tramadol 25 mg PO PRN ×3 (09:44→21:28)
--- NOTE | 2017-05-07 20:38 | CP.PCM.PN ---
Subjective - Date & Time of Evaluation Date of Evaluation: 05/07/17 Time of Evaluation: 14:10 - Subjective Subjective: Patient seen and evaluated Denies chest pain and dyspnea On Anticoagulation for PE S/P IVC filter Family at bed side Objective - Vital Signs/Intake and Output Vital Signs (last 24 hours): Temp Pulse Resp BP Pulse Ox 97.5 F L 91 H 20 146/68 95 05/07/17 15:00 05/07/17 16:00 05/07/17 15:00 05/07/17 15:00 05/07/17 15:00 Intake and Output: 05/07/17 05/08/17 18:59 06:59 Intake Total 790 Balance 790 - Medications Medications: Current Medications Acetaminophen (Tylenol 325mg Tab) 650 mg PO Q6 PRN PRN Reason: Pain, Mild (1-3) Last Admin: 05/06/17 14:18 Dose: 650 mg Albuterol/Ipratropium (Duoneb 3 Mg/0.5 Mg (3 Ml) Ud) 3 ml INH RQ6 [facility] Last Admin: 05/07/17 19:13 Dose: 3 ml Amoxicillin/Clavulanate Potassium (Augmentin 875 Mg-125 Mg Tab) 1 tab PO Q12H [facility] Last Admin: 05/07/17 18:24 Dose: 1 tab Apixaban (Eliquis) 5 mg PO BID [facility] Last Admin: 05/07/17 18:24 Dose: 5 mg Aspirin (Aspirin Chewable) 81 mg PO DAILY [facility] Last Admin: 05/07/17 09:42 Dose: 81 mg Lactulose (Enulose) 20 gm PO HS [facility] Last Admin: 05/06/17 22:30 Dose: Not Given Levothyroxine Sodium (Synthroid) 100 mcg PO DAILY@0630 [facility] Last Admin: 05/07/17 06:05 Dose: 100 mcg Pantoprazole Sodium (Protonix Inj) 40 mg IVP DAILY [facility] Last Admin: 05/07/17 09:42 Dose: 40 mg Polyethylene Glycol (Miralax) 17 gm PO DAILY [facility] Last Admin: 05/07/17 09:42 Dose: Not Given Rosuvastatin Calcium (Crestor) 2.5 mg PO HS [facility] Last Admin: 05/06/17 22:29 Dose: 2.5 mg Tramadol HCl (Ultram) 25 mg PO TID PRN PRN Reason: Pain, severe (8-10) Last Admin: 05/07/17 16:21 Dose: 25 mg - Labs Labs: 05/05/17 06:28 05/05/17 19:20 PT 13.7 SECONDS (9.7-12.2) H 05/04/17 06:34 INR 1.2 05/04/17 06:34 APTT 26 SECONDS (21-34) 05/04/17 06:34
[2017-05-07] MEDS: Rosuvastatin Calcium 2.5 mg Tab PO SCH (21:27)
[2017-05-08] MEDS: Albuterol-Ipratrop 3 mg / 0.5 (3 ml) UD INH SCH ×4 (01:27→19:46)
[2017-05-08] MEDS: Levothyroxine 100 MCG TAB PO SCH (06:14)
[2017-05-08] MEDS: Amoxicillin-Clav 875-125 mg Tab PO SCH ×2 (06:15→18:49)
[2017-05-08 07:29] LABS: BASO # 0.1 K/uL (0.0-0.2); BASO % 0.8 % (0.0-2.0); EOS # 0.9 K/uL (0.0-0.7); EOS % 11.8 % (0.0-4.0); HEMATOCRIT 32.5 % (34.0-47.0); LYMPH # 1.7 K/uL (1.0-4.3); LYMPH % 23.2 % (20.0-40.0); MEAN CELL VOLUME 90.1 fL (81.0-99.0); MEAN CORPUSCULAR HEMOGLOBIN 30.4 pg (27.0-31.0); MEAN CORPUSCULAR HGB CONC 33.7 g/dL (33.0-37.0); MEAN PLATELET VOLUME 11.7 fL (7.2-11.7); MONO # 0.6 K/uL (0.0-0.8); WHITE BLOOD COUNT 7.4 K/uL (4.8-10.8)
[2017-05-08 08:32] LABS: ALB/GLOB RATIO 0.9 (1.0-2.1); BILIRUBIN,TOTAL 0.9 mg/dL (0.2-1.3); CALCIUM 7.6 mg/dl (8.6-10.4); MAGNESIUM 1.7 mg/dL (1.6-2.3); POTASSIUM 4.4 mmol/L (3.6-5.2); TOTAL PROTEIN 5.8 g/dL (6.3-8.3)
[2017-05-08 08:36] LABS: THYROID STIMULATING HORMONE 13.6 mIU/L (0.46-4.68)
[2017-05-08] MEDS ORDERED: Aluminum Hydroxide/Magnesium Hydroxide Susp (30 mL) PO ONE (08:45)
[2017-05-08] MEDS: POLYETHYLENE GLYCOL 3350 17 GM/Dose PACKET PO SCH (09:35)
[2017-05-08] MEDS: Tramadol 25 mg PO PRN ×2 (16:10→21:30)
[2017-05-08] MEDS: Rosuvastatin Calcium 2.5 mg Tab PO SCH (21:31)
--- NOTE | 2017-05-08 21:56 | CP.PCM.PN ---
Subjective - Date & Time of Evaluation Date of Evaluation: 05/08/17 Time of Evaluation: 08:45 - Subjective Subjective: Patient seen and evaluated Feeling better On AC for DVT and PE Objective - Vital Signs/Intake and Output Vital Signs (last 24 hours): Temp Pulse Resp BP Pulse Ox 98.0 F 93 H 20 119/67 95 05/08/17 15:13 05/08/17 16:00 05/08/17 15:13 05/08/17 15:13 05/08/17 15:13 Intake and Output: 05/08/17 05/09/17 18:59 06:59 Intake Total 750 Balance 750 - Medications Medications: Current Medications Acetaminophen (Tylenol 325mg Tab) 650 mg PO Q6 PRN PRN Reason: Pain, Mild (1-3) Last Admin: 05/06/17 14:18 Dose: 650 mg Albuterol/Ipratropium (Duoneb 3 Mg/0.5 Mg (3 Ml) Ud) 3 ml INH RQ6 [facility] Last Admin: 05/08/17 19:46 Dose: 3 ml Amoxicillin/Clavulanate Potassium (Augmentin 875 Mg-125 Mg Tab) 1 tab PO Q12H [facility] Last Admin: 05/08/17 18:49 Dose: 1 tab Apixaban (Eliquis) 5 mg PO BID [facility] Last Admin: 05/08/17 18:49 Dose: 5 mg Aspirin (Aspirin Chewable) 81 mg PO DAILY [facility] Last Admin: 05/08/17 09:34 Dose: 81 mg Lactulose (Enulose) 20 gm PO HS [facility] Last Admin: 05/08/17 21:32 Dose: Not Given Levothyroxine Sodium (Synthroid) 100 mcg PO DAILY@0630 [facility] Last Admin: 05/08/17 06:14 Dose: 100 mcg Pantoprazole Sodium (Protonix Inj) 40 mg IVP DAILY [facility] Last Admin: 05/08/17 09:34 Dose: 40 mg Polyethylene Glycol (Miralax) 17 gm PO DAILY [facility] Last Admin: 05/08/17 09:35 Dose: Not Given Rosuvastatin Calcium (Crestor) 2.5 mg PO HS [facility] Last Admin: 05/08/17 21:31 Dose: 2.5 mg Tramadol HCl (Ultram) 25 mg PO TID PRN PRN Reason: Pain, severe (8-10) Last Admin: 05/08/17 21:30 Dose: 25 mg - Labs Labs: 05/08/17 07:07 05/08/17 07:07 PT 13.7 SECONDS (9.7-12.2) H 05/04/17 06:34 INR 1.2 05/04/17 06:34 APTT 26 SECONDS (21-34) 05/04/17 06:34
[2017-05-09] MEDS: Albuterol-Ipratrop 3 mg / 0.5 (3 ml) UD INH SCH (01:32)
[2017-05-09] MEDS: Amoxicillin-Clav 875-125 mg Tab PO SCH (06:02)
[2017-05-09] MEDS: Levothyroxine 100 MCG TAB PO SCH (06:02)
--- NOTE | 2017-05-09 07:15 | CARDCATH ---
PROCEDURE DATE: 05/05/2017 PROCEDURES: 1. Inferior vena cava filter placement. 2. Inferior vena cava angiogram. REFERRING PHYSICIAN: Marvin Herrera MD PERFORMING PHYSICIAN: Helio Strong MD CLINICAL INDICATIONS: 1. Deep vein thrombosis. 2. Dyspnea. 3. Pulmonary embolism. 4. Severe pulmonary hypertension. BRIEF CLINICAL HISTORY: An 87-year-old female admitted with acute pulmonary embolism. Subsequent workup has revealed right leg deep vein thrombosis. By echo, patient already developed severe pulmonary hypertension. To prevent further embolization, IVC filter planned. The patient and the family explained about the benefits and risks. The patient agreed for the procedure. PROCEDURE: The patient was prepped and draped in the usual sterile fashion. A 2% lidocaine was given in the right groin for local anesthesia. Using micropuncture technique, 6-Vietnamese sheath was introduced into the right common femoral vein. Using Cook sheath, inferior vena cava angiogram was performed. Right renal vein was identified. Cook Celect IVC filter deployed below the renal vein. Post IVC filter, inferior vena cava angiogram was performed. There is an accessory renal vein noted on the right side. The patient tolerated the procedure well. Procedure was uneventful. CONCLUSION: The patient with acute deep vein thrombosis and pulmonary embolism. The patient also had a severe pulmonary hypertension. To prevent further embolization, IV filter placed in the inferior vena cava. Helio Strong MD
[2017-05-09] MEDS: POLYETHYLENE GLYCOL 3350 17 GM/Dose PACKET PO SCH (10:01)
[2017-05-09 15:59] VITALS: BP 128/77; PULSE 85; RESP 20; TEMP 98.6; O2SAT 96
--- NOTE | 2017-05-09 21:53 | CP.PCM.PN ---
Subjective - Date & Time of Evaluation Date of Evaluation: 05/09/17 Time of Evaluation: 08:10 - Subjective Subjective: Patient seen and evaluated Denies chest pain and dyspnea PE on anticoagulation S/P IVC filter For possible d/c today F/U in my office in 2-4 weeks Objective - Vital Signs/Intake and Output Vital Signs (last 24 hours): Temp Pulse Resp BP Pulse Ox 98.6 F 85 20 128/77 96 05/09/17 15:00 05/09/17 15:00 05/09/17 15:00 05/09/17 15:00 05/09/17 15:00 Intake and Output: 05/09/17 05/10/17 18:59 06:59 Intake Total 250 Balance 250 - Labs Labs: 05/08/17 07:07 05/08/17 07:07 PT 13.7 SECONDS (9.7-12.2) H 05/04/17 06:34 INR 1.2 05/04/17 06:34 APTT 26 SECONDS (21-34) 05/04/17 06:34
--- NOTE | 2017-05-09 22:19 | CARD ---
APPROVED REPORT EKG Measurement Heart [id number] <Conclusion> Sinus rhythm with 1st degree AV block ST & T wave abnormality, consider anterolateral ischemia Prolonged QT Abnormal ECG
[2017-05-10] MEDS ORDERED: Pantoprazole 40 mg EC Tab PO SCH (10:00)
== END 2017-05-09 20:27 | disposition designated cancer center or children's hospital (05) | DRG 252 ==
LOC: C.ER 16:21 → C.9E 20:19 → C.6T 21:29 → C.9E 22:06 → C.9I 22:31 → C.6T 05-05 20:43
PROVIDERS: ADMIT Internal Medicine; ATTEND Internal Medicine
PROC: 06H03DZ Insertion of Intraluminal Device into Inferior Vena Cava, Percutaneous Approach (ICD-10-PCS; principal; 2017-05-05)
DX: I21.4 Non-ST elevation (NSTEMI) myocardial infarction (principal); I26.99 Other pulmonary embolism without acute cor pulmonale; I82.413 Acute embolism and thrombosis of femoral vein, bilateral; I82.431 Acute embolism and thrombosis of right popliteal vein; N39.0 Urinary tract infection, site not specified; I27.20 Pulmonary hypertension, unspecified; K59.09 Other constipation; I10 Essential (primary) hypertension; E03.9 Hypothyroidism, unspecified; M19.90 Unspecified osteoarthritis, unspecified site; Z87.891 Personal history of nicotine dependence

== ENCOUNTER 2017-07-24 13:21 | Inpatient (IN) | payer MEDICARE ==
[2017-07-24 14:45] LABS: BASO % 0.5 % (0.0-2.0); EOS % 0.3 % (0.0-4.0); LYMPH # 1.5 K/uL (1.0-4.3); LYMPH % 15.1 % (20.0-40.0); MEAN CELL VOLUME 89.6 fL (81.0-99.0); MEAN CORPUSCULAR HEMOGLOBIN 29.7 pg (27.0-31.0); MEAN CORPUSCULAR HGB CONC 33.1 g/dL (33.0-37.0); MEAN PLATELET VOLUME 10.8 fL (7.2-11.7); MONO # 0.7 K/uL (0.0-0.8); NEUT # 7.6 K/uL (1.8-7.0); NEUT % 77.1 % (50.0-75.0); RBC 3.72 Mil/uL (3.80-5.20); RED CELL DISTRIBUTION WIDTH 14.4 % (11.5-14.5); WHITE BLOOD COUNT 9.9 K/uL (4.8-10.8)
[2017-07-24 14:54] LABS: INR 1.8; PROTHROMBIN TIME 20.3 SECONDS (9.7-12.2)
[2017-07-24 14:58] LABS: ALB/GLOB RATIO 1.2 (1.0-2.1); ALBUMIN 3.5 g/dL (3.5-5.0); CALCIUM 8.9 mg/dl (8.6-10.4)
[2017-07-24 15:11] LABS: CK-MB 0.39 ng/mL (0.0-3.38); TROPONIN I 0.017 ng/mL (0.00-0.120)
--- NOTE | 2017-07-24 15:54 | C.PDOC ---
History Of Present Illness 87yo female, currently on blood thinners, brought to ER for evaluation after she had 2 falls today. Patient states she fell at 1am today, called the ambulance but refused to come to the hospital. She fell again later this morning and was found on the ground by her relative, unable to get up for at least 2 hours. Patient's family reports noticing swelling to the right side of the patient's face, roman catholic and periorbital area. Patient also reports of bilateral shoulder, hands, hips and rib pain. She denies any chest pain, shortness of breath, abdominal pain. No other complaints. Time Seen by Provider: 07/24/17 13:52 Chief Complaint (Nursing): Back Pain History Per: Patient History/Exam Limitations: no limitations Current Symptoms Are (Timing): Still Present Past Medical History Reviewed: Historical Data, Nursing Documentation, Vital Signs Vital Signs: Last Vital Signs Temp 98.5 F 07/24/17 13:28 Pulse 79 07/24/17 13:28 Resp 16 07/24/17 13:28 BP 107/60 07/24/17 13:28 Pulse Ox 98 07/24/17 18:14 - Medical History PMH: Arthritis (KNEE, BACK), HTN, Hypothyroidism (W/ MEDS), Sleep Apnea Surgical History: No Surg Hx - [facility] Procedures INSERTION OF INTRALUM DEV INTO INF VENA CAVA, PERC APPROACH (05/03/17) Family History: States: Unknown Family Hx - Social History Hx Tobacco Use: No Hx Alcohol Use: No Hx Substance Use: No Review Of Systems Except As Marked, All Systems Reviewed And Found Negative. Constitutional: Negative for: Fever, Chills Neurological: Positive for: Headache (swelling to right side of head, face and roman catholic), Other (multiple falls) Physical Exam - Physical Exam Appears: Non-toxic Skin: Normal Color, Warm, Dry Head: Swelling (swelling and ecchymosis noted to right forehead, roman catholic and face.) Eye(s): bilateral: Normal Inspection, EOMI Neck: Normal ROM, Supple Chest: Symmetrical, Other (bilateral ribs tenderness) Cardiovascular: Rhythm Regular Respiratory: Normal Breath Sounds, No Wheezing Gastrointestinal/Abdominal: Normal Exam, Soft, No Tenderness Extremity: Normal ROM, Tenderness (bilateral shoulder and hips tenderness. ), Other (bruising noted to bilateral hands) Neurological/Psych: Oriented x3, Normal Speech, Normal Cognition, Normal Motor, Normal Sensation ED Course And Treatment - Laboratory Results Result Diagrams: 07/24/17 14:41 07/24/17 14:41 O2 Sat by Pulse Oximetry: 98 (RA) Pulse Ox Interpretation: Normal - Other Rad XR Hands Bilateral X-Ray: Read By Radiologist Interpretation: PROCEDURE: Bilateral hand radiographs. HISTORY: falls. COMPARISON: None. FINDINGS: BONES: Right Hand: No acute fractures. Left Hand: No acute fractures. JOINTS: Right Hand: Severe osteoarthritic changes. Left Hand: Symmetrical osteoarthritic changes. SOFT TISSUES: Right Hand: Normal. Left Hand: Normal. OTHER FINDINGS: None. IMPRESSION: No acute findings related to/accounting for the clinical presentation. XR Bilateral Shoulders X-Ray: Read By Radiologist Interpretation: PROCEDURE: Radiographs of both shoulders. HISTORY: falls. COMPARISON: No prior. FINDINGS: BONES: Right shoulder: No acute fracture. Left shoulder: No acute fracture of the. JOINTS: Right shoulder: Preserved glenohumeral relationship, acromioclavicular degenerative change: Moderate. Left shoulder: Preserved glenohumeral relationship, acromioclavicular degenerative change: Moderate and symmetrical. SOFT TISSUES: Right shoulder: Grossly unremarkable. Right shoulder: Grossly unremarkable. OTHER FINDINGS: None. IMPRESSION: No acute findings related to/accounting for the clinical presentation. XR Bilateral Hips X-Ray: Read By Radiologist Interpretation: PROCEDURE: Radiographs of the pelvis and bilateral hips. HISTORY: fall. COMPARISON: None. FINDINGS: BONES: Pelvis: Unremarkable. Right hip:Unremarkable. Left hip:Unremarkable. JOINTS: Right hip: Mild degenerative change. Left hip: Symmetrical changes. Sacroiliac Joints: Unremarkable. Pubic symphysis: Unremarkable. SOFT TISSUES: Normal. OTHER FINDINGS: None. IMPRESSION: No acute findings related to/accounting for the clinical presentation. KeyUnremarkable radiographs of the hips and pelvis. - CT Scan/US CT Chest Other Rad Studies (CT/US): Radiology Report Reviewed CT/US Interpretation: PROCEDURE: CT Chest without contrast. HISTORY: fall. COMPARISON: None. TECHNIQUE: Contiguous axial images were obtained through the chest without intravenous contrast enhancement. Sagittal and coronal reconstructions were performed. . Radiation dose (DLP): 624.79 mGy-cm. This CT exam was performed using one or more of the following dose reduction techniques: Automated exposure control, adjustment of the mA and/or kV according to patient size, and/or use of iterative reconstruction technique. FINDINGS: LUNGS: Clear lungs. Visualized airway clear. MEDIASTINUM: Unremarkable thoracic aorta. No aneurysm. Normal sized heart. Mild dilatation of the main pulmonary artery is noted to a diameter of 3.3 cm. This may correlate with pulmonary arterial hypertension. No lymphadenopathy. PLEURA: No pleural fluid. No pneumothorax. BONES: Old healed fractures of the right 3rd and 4th ribs are demonstrated anterolaterally. There is no acute fracture identified. UPPER ABDOMEN: Status post cholecystectomy. Inferior vena caval filter noted. OTHER FINDINGS: None. IMPRESSION: No acute abnormality. No hemothorax/ pneumothorax. Old healed right 3rd and 4th rib fractures. CT C-Spine Other Rad Studies (CT/US): Radiology Report Reviewed CT/US Interpretation: PROCEDURE: CT Cervical Spine without contrast. HISTORY: <falls>. COMPARISON: None available. TECHNIQUE: Axial computed tomography images were obtained of the cervical spine without the use of intravenous contrast. Coronal and sagittal reformatted images were created and reviewed. Radiation dose: Total exam DLP = 545.43 mGy-cm. This CT exam was performed using one or more of the following dose reduction techniques: Automated exposure control, adjustment of the mA and/or kV according to patient size, and/ or use of iterative reconstruction technique. FINDINGS: VERTEBRAE: Vertebral bodies maintained in height. Normal alignment maintained. Atlantoaxial articulation and odontoid process are intact. DISCS/SPINAL CANAL/NEURAL FORAMINA: There is narrowing of the C3-4 intervertebral disc space consistent with degenerative disc disease. The remaining disc spaces are grossly preserved in height. There is broad-based midline disc herniation at C3-4 with resulting moderate central spinal stenosis. There is left parasagittal disc herniation at C4-5 with mild central spinal stenosis. Multilevel neural foraminal stenosis is noted bilaterally. PARASPINAL SOFT TISSUES: Unremarkable. OTHER FINDINGS: None. IMPRESSION: No evidence of fracture or dislocation. Central spinal stenosis at C3-4 associated with degenerative disc disease and midline disc herniation. Left parasagittal disc herniation at C4-5 with mild central spinal stenosis. Multilevel bilateral neural foraminal stenosis. CT Head Other Rad Studies (CT/US): Radiology Report Reviewed CT/US Interpretation: PROCEDURE: CT HEAD WITHOUT CONTRAST. HISTORY: fall. COMPARISON: Noncontrast head CT performed 05/03/17. TECHNIQUE: Axial computed tomography images were obtained through the head/brain without intravenous contrast. Radiation dose: Total exam DLP = 836.74 mGy-cm. This CT exam was performed using one or more of the following dose reduction techniques: Automated exposure control, adjustment of the mA and/or kV according to patient size, and/or use of iterative reconstruction technique. FINDINGS: Right facial and preseptal soft tissue swelling/hematoma. HEMORRHAGE : No intracranial hemorrhage. BRAIN: Diffuse atrophy with prominence of the ventricles and sulci noted. No mass effect or edema. Calcifications involving bilateral carotid siphons. Asymmetric soft tissue appearance of the left intra sellar region abutting the cavernous sinus. Scattered periventricular and subcortical white matter hypodensities, which are nonspecific, but often seen with chronic microvascular ischemic disease. Please note that MRI with diffusion imaging is more sensitive in the detection of acute ischemic event. VENTRICLES: No hydrocephalus. CALVARIUM: Unremarkable. PARANASAL SINUSES: Unremarkable as visualized. No significant inflammatory changes. MASTOID AIR CELLS: Under aeration of the mastoid air cells ; correlate clinically for history of mastoiditis. OTHER FINDINGS: Partial opacification of the right external auditory canal, likely cerumen. . IMPRESSION: Right facial and preseptal soft tissue swelling/hematoma. Asymmetric soft tissue appearance of the left intra sellar region abutting the cavernous sinus. Cannot exclude intra sellar lesion such as adenoma, meningioma, aneurysm, etc. Suggest further evaluation as indicated. Generalized atrophy. Nonspecific white matter changes. Progress Note: CT Head, CT Chest and CT C-Spine ordered. XR Bilateral Hands and XR Bilateral hips with pelvis ordered. Labs ordered and reviewed and are within normal limits. Patient found to have UTI. Rocephin IV ordered. Case ws d /w pt's PMD who accepted patient to his service for an admission. Disposition - Disposition Disposition: HOSPITALIZED Disposition Time: 18:13 Condition: FAIR - Clinical Impression Clinical Impression: UTI (urinary tract infection), Multiple falls, Multiple contusions Decision To Admit - Pt Status Changed To: Hospital Disposition Of: Observation - . Bed Request Type: Regular Admitting Physician: Marvin Herrera Patient Diagnosis: UTI (urinary tract infection), Multiple falls, Multiple contusions
--- NOTE | 2017-07-24 15:59 | CT ---
PROCEDURE: CT Chest without contrast HISTORY: fall COMPARISON: None. TECHNIQUE: Contiguous axial images were obtained through the chest without intravenous contrast enhancement. Sagittal and coronal reconstructions were performed. Radiation dose (DLP): 624.79 mGy-cm. This CT exam was performed using one or more of the following dose reduction techniques: Automated exposure control, adjustment of the mA and/or kV according to patient size, and/or use of iterative reconstruction technique. FINDINGS: LUNGS: Clear lungs. Visualized airway clear. MEDIASTINUM: Unremarkable thoracic aorta. No aneurysm. Normal sized heart. Mild dilatation of the main pulmonary artery is noted to a diameter of 3.3 cm. This may correlate with pulmonary arterial hypertension. No lymphadenopathy. PLEURA: No pleural fluid. No pneumothorax. BONES: Old healed fractures of the right 3rd and 4th ribs are demonstrated anterolaterally. There is no acute fracture identified. UPPER ABDOMEN: Status post cholecystectomy. Inferior vena caval filter noted. OTHER FINDINGS: None. IMPRESSION: No acute abnormality. No hemothorax/ pneumothorax. Old healed right 3rd and 4th rib fractures.
--- NOTE | 2017-07-24 16:08 | CT ---
PROCEDURE: CT HEAD WITHOUT CONTRAST. HISTORY: fall COMPARISON: Noncontrast head CT performed 05/03/17 TECHNIQUE: Axial computed tomography images were obtained through the head/brain without intravenous contrast. Radiation dose: Total exam DLP = 836.74 mGy-cm. This CT exam was performed using one or more of the following dose reduction techniques: Automated exposure control, adjustment of the mA and/or kV according to patient size, and/or use of iterative reconstruction technique. FINDINGS: Right facial and preseptal soft tissue swelling/hematoma. HEMORRHAGE: No intracranial hemorrhage. BRAIN: Diffuse atrophy with prominence of the ventricles and sulci noted. No mass effect or edema. Calcifications involving bilateral carotid siphons. Asymmetric soft tissue appearance of the left intra sellar region abutting the cavernous sinus. Scattered periventricular and subcortical white matter hypodensities, which are nonspecific, but often seen with chronic microvascular ischemic disease. Please note that MRI with diffusion imaging is more sensitive in the detection of acute ischemic event. VENTRICLES: No hydrocephalus. CALVARIUM: Unremarkable. PARANASAL SINUSES: Unremarkable as visualized. No significant inflammatory changes. MASTOID AIR CELLS: Under aeration of the mastoid air cells ; correlate clinically for history of mastoiditis. OTHER FINDINGS: Partial opacification of the right external auditory canal, likely cerumen. . IMPRESSION: Right facial and preseptal soft tissue swelling/hematoma. Asymmetric soft tissue appearance of the left intra sellar region abutting the cavernous sinus. Cannot exclude intra sellar lesion such as adenoma, meningioma, aneurysm, etc. Suggest further evaluation as indicated. Generalized atrophy. Nonspecific white matter changes.
--- NOTE | 2017-07-24 16:11 | CT ---
PROCEDURE: CT Cervical Spine without contrast HISTORY: <falls> COMPARISON: None available. TECHNIQUE: Axial computed tomography images were obtained of the cervical spine without the use of intravenous contrast. Coronal and sagittal reformatted images were created and reviewed. Radiation dose: Total exam DLP = 545.43 mGy-cm. This CT exam was performed using one or more of the following dose reduction techniques: Automated exposure control, adjustment of the mA and/or kV according to patient size, and/or use of iterative reconstruction technique. FINDINGS: VERTEBRAE: Vertebral bodies maintained in height. Normal alignment maintained. Atlantoaxial articulation and odontoid process are intact. DISCS/SPINAL CANAL/NEURAL FORAMINA: There is narrowing of the C3-4 intervertebral disc space consistent with degenerative disc disease. The remaining disc spaces are grossly preserved in height. There is broad-based midline disc herniation at C3-4 with resulting moderate central spinal stenosis. There is left parasagittal disc herniation at C4-5 with mild central spinal stenosis. Multilevel neural foraminal stenosis is noted bilaterally. PARASPINAL SOFT TISSUES: Unremarkable. OTHER FINDINGS: None. IMPRESSION: No evidence of fracture or dislocation. Central spinal stenosis at C3-4 associated with degenerative disc disease and midline disc herniation. Left parasagittal disc herniation at C4-5 with mild central spinal stenosis. Multilevel bilateral neural foraminal stenosis.
[2017-07-24 16:24] LABS: SQUAMOUS EPITHIAL 2 /hpf (0-5); URINE BACTERIA FEW (<OCC); URINE BILIRUBIN NEGATIVE (NEGATIVE); URINE BLOOD 1+ (NEGATIVE); URINE CLARITY Hazy (Clear); URINE COLOR Yellow (YELLOW); URINE GLUCOSE (UA) NORMAL (Normal); URINE LEUKOCYTE ESTERASE 3+ Leu/uL (Negative); URINE PROTEIN NEGATIVE (NEGATIVE); URINE UROBILINOGEN NORMAL mg/dL (0.2-1.0)
[2017-07-24] MEDS ORDERED: cefTRIAXone IV 1 gm in Dextros 50 ML IVPB STA (16:46)
[2017-07-24] MEDS ORDERED: cefTRIAXone IV 1 gm in Dextros 50 ML IVPB ONE (17:22)
--- NOTE | 2017-07-24 17:44 | RAD ---
PROCEDURE: Radiographs of the pelvis and bilateral hips HISTORY: fall COMPARISON: None. FINDINGS: BONES: Pelvis: Unremarkable. Right hip:Unremarkable. Left hip:Unremarkable. JOINTS: Right hip: Mild degenerative change. Left hip: Symmetrical changes Sacroiliac Joints: Unremarkable. Pubic symphysis: Unremarkable. SOFT TISSUES: Normal. OTHER FINDINGS: None. IMPRESSION: No acute findings related to/accounting for the clinical presentation. KeyUnremarkable radiographs of the hips and pelvis.
--- NOTE | 2017-07-24 17:46 | RAD ---
PROCEDURE: Radiographs of both shoulders HISTORY: falls COMPARISON: No prior. FINDINGS: BONES: Right shoulder: No acute fracture Left shoulder: No acute fracture of the JOINTS: Right shoulder: Preserved glenohumeral relationship, acromioclavicular degenerative change: Moderate Left shoulder: Preserved glenohumeral relationship, acromioclavicular degenerative change: Moderate and symmetrical SOFT TISSUES: Right shoulder: Grossly unremarkable. Right shoulder: Grossly unremarkable. OTHER FINDINGS: None. IMPRESSION: No acute findings related to/accounting for the clinical presentation.
--- NOTE | 2017-07-24 17:46 | RAD ---
PROCEDURE: Bilateral hand radiographs. HISTORY: falls COMPARISON: None. FINDINGS: BONES: Right Hand: No acute fractures. Left Hand: No acute fractures. JOINTS: Right Hand: Severe osteoarthritic changes Left Hand: Symmetrical osteoarthritic changes SOFT TISSUES: Right Hand: Normal. Left Hand: Normal. OTHER FINDINGS: None. IMPRESSION: No acute findings related to/accounting for the clinical presentation.
--- NOTE | 2017-07-24 18:46 | CP.PCM.HP ---
History of Present Illness - History of Present Illness History of Present Illness: Chief complaint: Found on the floor History of present illness: 87-year-old female with history of hypertension, hypothyroidism, chronic and constipation, history of UTI in the past, osteoarthritis, chronic pruritus came to the emergency room after patient was found on the floor. Patient lives [facility] the [facility]. This morning patient's family was trying to reach her, and Having difficulty in getting up,ambulance came andinitially they attempted to bring the hospital, but patient refused. Patient again fall second time, and this time patient was brought into the emergency room by M. Patient had a similar incident a few times in the past. patient was evaluated, and also underwent a rehabilitation. During the last hospitalization patient was noted to have DVT, and also had IVC filter done. complaining of pain generalized, mostly in the X images. Lower back pain noted. Because of the fall patient has right facial bruise periorbitally area Past medical history: Hypothyroidism, hypertension, insomnia, constipation, chronic pruritus, Deep venous thrombosis, Pulmonary embolism status post IVC filter Allergies: Erythromycin sulfamethoxazole ampicillin Surgical history hysterectomy many years ago. Family history significant for arthritis diabetes and heart disease Social history: Former smoker, no alcohol currently living in the [facility] Current medications: Patient is taking aspirin, chlorthalidone, isosorbide, amlodipine, levothyroxine , metoprolol, omeprazole, tramadol Review of systems: Patient is company of body pain, generalized, more on the right side. Headache noted. No nausea no vomiting. Oriented. Constipation. Recurrent fall Severe osteoarthritis. Vital signs reviewed Elderly female, dry mucosa No neck vein distention noted, mostly collapsed Patient has a periorbital ecchymosison the right side Chest good air entry bilaterally, no wheezing or rales noted CVS regular heart sound, no murmur noted Abdomen soft, nontender. 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 Weakness. Recurrent fall, Periorbital ecchymosis patient is on anticoagulation Osteoarthritis Recently had a patient DVT, PE on anticoagulations Status post IVC filter prognosis guarded Physical therapy Follow-up the patient. Severe constipation Present on Admission - Present on Admission Any Indicators Present on Admission: No History of DVT/PE: No History of Uncontrolled Diabetes: No Urinary Catheter: No Decubitus Ulcer Present: No Past Patient History - Past Medical History & Family History Past Medical History?: Yes - Past Social History Smoking Status: Never Smoked - CARDIAC Hx Hypertension: Yes - PULMONARY Hx Sleep Apnea: Yes - ENDOCRINE/METABOLIC Hx Hypothyroidism: Yes (W/ MEDS) - INTEGUMENTARY Other/Comment: multiple bruises over body - MUSCULOSKELETAL/RHEUMATOLOGICAL Hx Arthritis: Yes (KNEE, BACK) - PSYCHIATRIC Hx Substance Use: No - SURGICAL HISTORY Hx Surgeries: No - ANESTHESIA Hx Anesthesia: No Meds Allergies/Adverse Reactions: Allergies Allergy/AdvReac Type Severity Reaction Status Date / Time erythromycin base Allergy Verified 03/27/17 20:35 Sulfa (Sulfonamide Allergy Verified 07/24/17 13:31 Antibiotics) Results - Vital Signs Recent Vital Signs: Last Vital Signs Temp 98.5 F 07/24/17 13:28 Pulse 79 07/24/17 13:28 Resp 16 07/24/17 13:28 BP 107/60 07/24/17 13:28 Pulse Ox 98 07/24/17 18:37 - Labs Result Diagrams: 07/24/17 14:41 07/24/17 14:41 Labs: Laboratory Results - last 24 hr 07/24/17 07/24/17 07/24/17 14:41 14:41 14:41 WBC 9.9 RBC 3.72 L Hgb 11.0 Hct 33.3 L MCV 89.6 MCH 29.7 MCHC 33.1 RDW 14.4 Plt Count 158 MPV 10.8 Neut % (Auto) 77.1 H Lymph % (Auto) 15.1 L [place] % (Auto) 7.0 Eos % (Auto) 0.3 Baso % (Auto) 0.5 Neut # (Auto) 7.6 H Lymph # (Auto) 1.5 [place] # (Auto) 0.7 Eos # (Auto) 0.0 Baso # (Auto) 0.0 PT 20.3 H INR 1.8 APTT 31 Sodium 142 Potassium 3.7 Chloride 105 Carbon Dioxide 23 Anion Gap 18 BUN 17 Creatinine 1.2 Est GFR ( Amer) 52 Est GFR (Non-Af Amer) 43 Random Glucose 121 H Calcium 8.9 Total Bilirubin 0.6 AST 19 ALT 23 Alkaline Phosphatase 64 Total Creatine Kinase 32 CK-MB (Mass) 0.39 Troponin I 0.0170 Total Protein 6.5 Albumin 3.5 D Globulin 3.0 Albumin/Globulin Ratio 1.2 Urine Color Urine Clarity Urine pH Ur Specific [place] Urine Protein Urine Glucose (UA) Urine Ketones Urine Blood Urine Nitrate Urine Bilirubin Urine Urobilinogen Ur Leukocyte Esterase Urine WBC (Auto) Urine RBC (Auto) Ur Squamous Epith Cells Urine Bacteria 07/24/17 15:59 WBC RBC Hgb Hct MCV MCH MCHC RDW Plt Count MPV Neut % (Auto) Lymph % (Auto) [place] % (Auto) Eos % (Auto) Baso % (Auto) Neut # (Auto) Lymph # (Auto) [place] # (Auto) Eos # (Auto) Baso # (Auto) PT INR APTT Sodium Potassium Chloride Carbon Dioxide Anion Gap BUN Creatinine Est GFR ( Amer) Est GFR (Non-Af Amer) Random Glucose Calcium Total Bilirubin AST ALT Alkaline Phosphatase Total Creatine Kinase CK-MB (Mass) Troponin I Total Protein Albumin Globulin Albumin/Globulin Ratio Urine Color Yellow Urine Clarity Hazy Urine pH 5.0 Ur Specific [place] 1.012 Urine Protein Negative Urine Glucose (UA) Normal Urine Ketones Negative Urine Blood 1+ H Urine Nitrate Positive H Urine Bilirubin Negative Urine Urobilinogen Normal Ur Leukocyte Esterase 3+ H Urine WBC (Auto) 62 H Urine RBC (Auto) 1 Ur Squamous Epith Cells 2 Urine Bacteria Few H
[2017-07-24] MEDS ORDERED: Albuterol-Ipratrop 3 mg / 0.5 (3 ml) UD ONE (20:03)
[2017-07-24] MEDS: Albuterol-Ipratrop 3 mg / 0.5 (3 ml) UD INH SCH (20:05)
[2017-07-24] MEDS: Rosuvastatin Calcium 2.5 mg Tab PO SCH (22:18)
[2017-07-25] MEDS: Albuterol-Ipratrop 3 mg / 0.5 (3 ml) UD INH SCH ×4 (01:29→20:20)
[2017-07-25 06:27] LABS: BASO % 0.5 % (0.0-2.0); EOS # 0.2 K/uL (0.0-0.7); EOS % 3.5 % (0.0-4.0); HEMOGLOBIN 9.7 g/dL (11.0-16.0); LYMPH # 2.5 K/uL (1.0-4.3); LYMPH % 45.5 % (20.0-40.0); MEAN CELL VOLUME 89.5 fL (81.0-99.0); MEAN CORPUSCULAR HEMOGLOBIN 30.1 pg (27.0-31.0); MEAN CORPUSCULAR HGB CONC 33.7 g/dL (33.0-37.0); MEAN PLATELET VOLUME 10.9 fL (7.2-11.7); MONO # 0.5 K/uL (0.0-0.8); MONO % 8.5 % (0.0-10.0); NEUT # 2.4 K/uL (1.8-7.0); NRBC % 0.1 % (0.0-2.0); RBC 3.23 Mil/uL (3.80-5.20); RED CELL DISTRIBUTION WIDTH 14.4 % (11.5-14.5); WHITE BLOOD COUNT 5.6 K/uL (4.8-10.8)
[2017-07-25] MEDS ORDERED: Levothyroxine 200 MCG TAB PO SCH (06:30)
[2017-07-25 06:39] LABS: ALBUMIN 2.7 g/dL (3.5-5.0); ALT/SGPT 23 U/L (9-52); AST/SGOT 16 U/L (14-36); BLOOD UREA NITROGEN 14 mg/dL (7-17); CALCIUM 8.4 mg/dl (8.6-10.4); GFR AFRICAN-AMERICAN 57; GFR NON-AFRICAN AMERICAN 47
--- NOTE | 2017-07-25 20:31 | CP.PCM.PN ---
Subjective - Date & Time of Evaluation Date of Evaluation: 07/25/17 Time of Evaluation: 20:29 - Subjective Subjective: Patient today feeling slightly better. 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 Right side of the forehead. Patient is having ecchymoses. No bleeding noted, otherwise. Complaining of bilateral knee pain, lower back pain. Significant pain in the legs noted. Vital signs stable. Chest good air entry bilaterally regular heart sound. Nontender abdomen. Patient's labs reviewed. TSH is very low, hemoglobin slightly on the low side. Assessment and recommendation: 87-year-old female with history of hypertension, hypothyroidism, osteoarthritis , dementia. Patient also had a history of DVT, pulmonary embolism, IVC filter. Currently on oral anticoagulation. Will closely monitor the hemoglobin again tomorrow. Will reduce the thyroid supplement. Repeat TSH again in 2 days. Physical therapy. I spoke to the patient's family regarding the placement long term. Patient has a frequent recurrent fall, and a high risk for bleeding, associate with the oral anticoagulation. Objective - Vital Signs/Intake and Output Vital Signs (last 24 hours): Temp Pulse Resp BP Pulse Ox 97.5 F L 86 20 109/65 96 07/25/17 15:00 07/25/17 15:00 07/25/17 15:00 07/25/17 15:00 07/25/17 15:00 Intake and Output: 07/25/17 07/26/17 18:59 06:59 Intake Total 900 Balance 900 - Medications Medications: Current Medications Acetaminophen (Tylenol 325mg Tab) 650 mg PO Q6 PRN PRN Reason: Pain, Mild (1-3) Last Admin: 07/24/17 22:23 Dose: 650 mg Albuterol/Ipratropium (Duoneb 3 Mg/0.5 Mg (3 Ml) Ud) 3 ml INH RQ6 [facility] Last Admin: 07/25/17 20:20 Dose: 3 ml Alprazolam (Xanax) 0.25 mg PO BID [facility] Last Admin: 07/25/17 17:02 Dose: 0.25 mg Apixaban (Eliquis) 5 mg PO BID [facility] Last Admin: 07/25/17 17:02 Dose: 5 mg Gabapentin (Neurontin) 100 mg PO HS [facility] Last Admin: 07/24/17 22:19 Dose: 100 mg Levothyroxine Sodium (Synthroid) 125 mcg PO DAILY@0630 [facility] Rosuvastatin Calcium (Crestor) 2.5 mg PO HS [facility] Last Admin: 07/24/17 22:18 Dose: 2.5 mg Tramadol HCl (Ultram) 50 mg PO TID PRN PRN Reason: Pain, moderate (4-7) Last Admin: 07/25/17 19:04 Dose: 50 mg - Labs Labs: 07/25/17 06:12 07/25/17 06:12 PT 20.3 SECONDS (9.7-12.2) H 07/24/17 14:41 INR 1.8 07/24/17 14:41 APTT 31 SECONDS (21-34) 07/24/17 14:41
[2017-07-25] MEDS: Rosuvastatin Calcium 2.5 mg Tab PO SCH (21:16)
[2017-07-26] MEDS: Albuterol-Ipratrop 3 mg / 0.5 (3 ml) UD INH SCH ×3 (01:37→13:21)
[2017-07-26] MEDS: Levothyroxine 125 MCG TAB PO SCH (05:35)
[2017-07-26 07:32] LABS: BASO % 0.4 % (0.0-2.0); EOS # 0.4 K/uL (0.0-0.7); EOS % 6.1 % (0.0-4.0); HEMOGLOBIN 10.2 g/dL (11.0-16.0); LYMPH # 2.1 K/uL (1.0-4.3); LYMPH % 31.1 % (20.0-40.0); MEAN CELL VOLUME 89.5 fL (81.0-99.0); MEAN CORPUSCULAR HEMOGLOBIN 30.1 pg (27.0-31.0); MEAN CORPUSCULAR HGB CONC 33.6 g/dL (33.0-37.0); MEAN PLATELET VOLUME 11.2 fL (7.2-11.7); MONO # 0.6 K/uL (0.0-0.8); MONO % 8.2 % (0.0-10.0); NEUT # 3.7 K/uL (1.8-7.0); NEUT % 54.2 % (50.0-75.0); NRBC % 0.1 % (0.0-2.0); RBC 3.41 Mil/uL (3.80-5.20); RED CELL DISTRIBUTION WIDTH 14.8 % (11.5-14.5); WHITE BLOOD COUNT 6.8 K/uL (4.8-10.8)
[2017-07-26 07:45] LABS: ALBUMIN 2.8 g/dL (3.5-5.0); CALCIUM 8.3 mg/dl (8.6-10.4)
[2017-07-26] MEDS: POLYETHYLENE GLYCOL 3350 17 GM/Dose PACKET PO SCH (09:36)
--- NOTE | 2017-07-26 22:05 | CP.PCM.PN ---
Subjective - Date & Time of Evaluation Date of Evaluation: 07/26/17 Time of Evaluation: 22:03 - Subjective Subjective: Patient is currently feeling well. Generalized body pain noted. No urinary discomfort. Constipation present. No BM today. Vital signs reviewed No neck vein distention noted Chest good air entry bilaterally, no wheezing or rales noted CVS regular heart sound, no murmur noted Abdomen soft, nontender. 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 Patient admitted to the hospital with a fall, injury. Last hospitalization patient had a DVT, pulmonary embolism currently on adequate ablation. Patient will need fall precautions. She will be discharged to rehabilitation once the bed is available. Escherichia coli urinary tract infection noted, but there is no evidence of systemic infection. We'll start the patient on Maxipime 1 g twice a day for 3 days. We'll follow the patient Objective - Vital Signs/Intake and Output Vital Signs (last 24 hours): Temp Pulse Resp BP Pulse Ox 98.5 F 89 20 103/53 L 92 L 07/26/17 16:36 07/26/17 16:36 07/26/17 16:36 07/26/17 16:36 07/26/17 16:36 Intake and Output: 07/26/17 07/27/17 18:59 06:59 Intake Total 400 Balance 400 - Medications Medications: Current Medications Acetaminophen (Tylenol 325mg Tab) 650 mg PO Q6 PRN PRN Reason: Pain, Mild (1-3) Last Admin: 07/24/17 22:23 Dose: 650 mg Albuterol/Ipratropium (Duoneb 3 Mg/0.5 Mg (3 Ml) Ud) 3 ml INH RQ6 [facility] Last Admin: 07/26/17 13:21 Dose: 3 ml Alprazolam (Xanax) 0.25 mg PO BID [facility] Last Admin: 07/26/17 17:20 Dose: 0.25 mg Apixaban (Eliquis) 5 mg PO BID [facility] Last Admin: 07/26/17 17:20 Dose: 5 mg Docusate Sodium (Colace) 100 mg PO BID [facility] Last Admin: 07/26/17 17:20 Dose: 100 mg Gabapentin (Neurontin) 100 mg PO HS [facility] Last Admin: 07/25/17 21:16 Dose: 100 mg Levothyroxine Sodium (Synthroid) 125 mcg PO DAILY@0630 [facility] Last Admin: 07/26/17 05:35 Dose: 125 mcg Polyethylene Glycol (Miralax) 17 gm PO DAILY [facility] Last Admin: 07/26/17 09:36 Dose: 17 gm Rosuvastatin Calcium (Crestor) 2.5 mg PO HS [facility] Last Admin: 07/25/17 21:16 Dose: 2.5 mg Tramadol HCl (Ultram) 50 mg PO BID PRN PRN Reason: Pain, moderate (4-7) - Labs Labs: 07/26/17 07:19 07/26/17 07:19 PT 20.3 SECONDS (9.7-12.2) H 07/24/17 14:41 INR 1.8 07/24/17 14:41 APTT 31 SECONDS (21-34) 07/24/17 14:41
[2017-07-26] MEDS: Rosuvastatin Calcium 2.5 mg Tab PO SCH (22:19)
[2017-07-26] MEDS: Cefepime IV 1 gm in Dextrose 1 GM/50 ML BAG IVPB SCH (23:37)
[2017-07-27] MEDS: Albuterol-Ipratrop 3 mg / 0.5 (3 ml) UD INH SCH ×4 (01:38→21:47)
[2017-07-27] MEDS: Levothyroxine 125 MCG TAB PO SCH (05:36)
[2017-07-27 07:43] LABS: ALB/GLOB RATIO 0.9 (1.0-2.1); ALBUMIN 2.7 g/dL (3.5-5.0); ALT/SGPT 19 U/L (9-52); AST/SGOT 15 U/L (14-36); BLOOD UREA NITROGEN 14 mg/dL (7-17); CALCIUM 8.3 mg/dl (8.6-10.4); GFR AFRICAN-AMERICAN > 60; GFR NON-AFRICAN AMERICAN 53
[2017-07-27 07:44] LABS: BASO % 0.5 % (0.0-2.0); EOS # 0.7 K/uL (0.0-0.7); EOS % 10.8 % (0.0-4.0); LYMPH # 2.5 K/uL (1.0-4.3); LYMPH % 40.8 % (20.0-40.0); MEAN CELL VOLUME 89.8 fL (81.0-99.0); MEAN CORPUSCULAR HEMOGLOBIN 30.3 pg (27.0-31.0); MEAN CORPUSCULAR HGB CONC 33.7 g/dL (33.0-37.0); MEAN PLATELET VOLUME 11.1 fL (7.2-11.7); MONO # 0.5 K/uL (0.0-0.8); MONO % 8.7 % (0.0-10.0); NEUT # 2.5 K/uL (1.8-7.0); NEUT % 39.2 % (50.0-75.0); NRBC % 0.1 % (0.0-2.0); RBC 3.3 Mil/uL (3.80-5.20); RED CELL DISTRIBUTION WIDTH 14.3 % (11.5-14.5); WHITE BLOOD COUNT 6.3 K/uL (4.8-10.8)
[2017-07-27] MEDS ORDERED: Levothyroxine 88 MCG TAB PO SCH (08:29)
[2017-07-27] MEDS: POLYETHYLENE GLYCOL 3350 17 GM/Dose PACKET PO SCH (09:32)
[2017-07-27] MEDS: Cefepime IV 1 gm in Dextrose 1 GM/50 ML BAG IVPB SCH ×2 (10:24→22:23)
--- NOTE | 2017-07-27 19:47 | CP.PCM.PN ---
Subjective - Date & Time of Evaluation Date of Evaluation: 07/27/17 Time of Evaluation: 19:45 - Subjective Subjective: pt is feeling better comfortable no fever no chest pain but generalised pain noted clinically no new changes stll mostly at bed regular hs abd soft no edema on eliquis for PE and DVT UTI on rocephine fall precautions ABEL Objective - Vital Signs/Intake and Output Vital Signs (last 24 hours): Temp Pulse Resp BP Pulse Ox 97.7 F 83 20 116/68 95 07/27/17 15:20 07/27/17 15:20 07/27/17 15:20 07/27/17 15:20 07/27/17 15:20 Intake and Output: 07/27/17 07/28/17 18:59 06:59 Intake Total 240 Output Total 0 Balance 240 - Medications Medications: Current Medications Acetaminophen (Tylenol 325mg Tab) 650 mg PO Q6 PRN PRN Reason: Pain, Mild (1-3) Last Admin: 07/24/17 22:23 Dose: 650 mg Albuterol/Ipratropium (Duoneb 3 Mg/0.5 Mg (3 Ml) Ud) 3 ml INH RQ6 [facility] Last Admin: 07/27/17 15:03 Dose: Not Given Alprazolam (Xanax) 0.25 mg PO BID [facility] Last Admin: 07/27/17 17:24 Dose: 0.25 mg Apixaban (Eliquis) 5 mg PO BID [facility] Last Admin: 07/27/17 17:24 Dose: 5 mg Docusate Sodium (Colace) 100 mg PO BID [facility] Last Admin: 07/27/17 17:24 Dose: 100 mg Gabapentin (Neurontin) 100 mg PO HS [facility] Last Admin: 07/26/17 22:19 Dose: 100 mg Cefepime HCl (Maxipime Iv 1 Gm Premix) 1 gm in 50 mls @ 100 mls/hr IVPB Q12H [facility] PRN Reason: Protocol Stop: 07/31/17 23:01 Last Admin: 07/27/17 10:24 Dose: 100 mls/hr Levothyroxine Sodium (Synthroid) 88 mcg PO DAILY@0630 [facility] Polyethylene Glycol (Miralax) 17 gm PO DAILY [facility] Last Admin: 07/27/17 09:32 Dose: 17 gm Rosuvastatin Calcium (Crestor) 2.5 mg PO [facility] Last Admin: 07/26/17 22:19 Dose: 2.5 mg Tramadol HCl (Ultram) 50 mg PO BID PRN PRN Reason: Pain, moderate (4-7) - Labs Labs: 07/27/17 07:21 07/27/17 07:21 PT 20.3 SECONDS (9.7-12.2) H 07/24/17 14:41 INR 1.8 07/24/17 14:41 APTT 31 SECONDS (21-34) 07/24/17 14:41
[2017-07-27] MEDS: Rosuvastatin Calcium 2.5 mg Tab PO SCH (21:38)
[2017-07-28] MEDS: Albuterol-Ipratrop 3 mg / 0.5 (3 ml) UD INH SCH ×3 (01:47→13:11)
[2017-07-28 08:52] LABS: BASO % 0.4 % (0.0-2.0); EOS # 0.7 K/uL (0.0-0.7); EOS % 12.5 % (0.0-4.0); HEMOGLOBIN 10.9 g/dL (11.0-16.0); LYMPH % 49.7 % (20.0-40.0); MEAN CORPUSCULAR HEMOGLOBIN 30.3 pg (27.0-31.0); MEAN CORPUSCULAR HGB CONC 33.6 g/dL (33.0-37.0); MEAN PLATELET VOLUME 11.2 fL (7.2-11.7); MONO # 0.5 K/uL (0.0-0.8); MONO % 8.7 % (0.0-10.0); NEUT # 1.7 K/uL (1.8-7.0); NEUT % 28.7 % (50.0-75.0); NRBC % 0.1 % (0.0-2.0); RBC 3.59 Mil/uL (3.80-5.20); RED CELL DISTRIBUTION WIDTH 14.4 % (11.5-14.5)
[2017-07-28 09:20] LABS: ALB/GLOB RATIO 0.9 (1.0-2.1); ALBUMIN 2.8 g/dL (3.5-5.0); ALT/SGPT 21 U/L (9-52); AST/SGOT 17 U/L (14-36); BLOOD UREA NITROGEN 15 mg/dL (7-17); CALCIUM 8.6 mg/dl (8.6-10.4); GFR AFRICAN-AMERICAN > 60; GFR NON-AFRICAN AMERICAN 53
[2017-07-28 10:54] VITALS: O2SAT 95
[2017-07-28] MEDS: POLYETHYLENE GLYCOL 3350 17 GM/Dose PACKET PO SCH (11:16)
[2017-07-28] MEDS: Cefepime IV 1 gm in Dextrose 1 GM/50 ML BAG IVPB SCH ×2 (11:21→12:00)
--- NOTE | 2017-07-28 11:57 | CP.PCM.PN ---
Subjective - Date & Time of Evaluation Date of Evaluation: 07/28/17 Time of Evaluation: 11:57 - Subjective Subjective: PATIENT WAS ADMITTED FOR MULTIPLE FALL AND UTI AAOX3 COMPAINT OF SORENESS ON THE RIGHT FACIAL DENIES CHEST PAIN OR SOB NO SIGN OF DISTRESS NOTED Objective - Vital Signs/Intake and Output Vital Signs (last 24 hours): Temp Pulse Resp BP Pulse Ox 97.5 F L 82 21 116/67 95 07/28/17 07:05 07/28/17 07:05 07/28/17 07:05 07/28/17 07:05 07/28/17 07:05 - Medications Medications: Current Medications Acetaminophen (Tylenol 325mg Tab) 650 mg PO Q6 PRN PRN Reason: Pain, Mild (1-3) Last Admin: 07/24/17 22:23 Dose: 650 mg Albuterol/Ipratropium (Duoneb 3 Mg/0.5 Mg (3 Ml) Ud) 3 ml INH RQ6 [facility] Last Admin: 07/28/17 08:04 Dose: 3 ml Alprazolam (Xanax) 0.25 mg PO BID [facility] Last Admin: 07/28/17 11:17 Dose: 0.25 mg Apixaban (Eliquis) 5 mg PO BID [facility] Last Admin: 07/28/17 11:17 Dose: 5 mg Docusate Sodium (Colace) 100 mg PO BID [facility] Last Admin: 07/28/17 11:17 Dose: 100 mg Gabapentin (Neurontin) 100 mg PO HS [facility] Last Admin: 07/27/17 21:38 Dose: 100 mg Cefepime HCl (Maxipime Iv 1 Gm Premix) 1 gm in 50 mls @ 100 mls/hr IVPB Q12H [facility] PRN Reason: Protocol Stop: 07/31/17 23:01 Last Admin: 07/27/17 22:23 Dose: 100 mls/hr Levothyroxine Sodium (Synthroid) 88 mcg PO DAILY@0630 [facility] Last Admin: 07/28/17 06:20 Dose: 88 mcg Polyethylene Glycol (Miralax) 17 gm PO DAILY [facility] Last Admin: 07/28/17 11:16 Dose: 17 gm Rosuvastatin Calcium (Crestor) 2.5 mg PO HS [facility] Last Admin: 07/27/17 21:38 Dose: 2.5 mg Tramadol HCl (Ultram) 50 mg PO BID PRN PRN Reason: Pain, moderate (4-7) - Labs Labs: 07/28/17 08:36 07/28/17 08:36 PT 20.3 SECONDS (9.7-12.2) H 07/24/17 14:41 INR 1.8 07/24/17 14:41 APTT 31 SECONDS (21-34) 07/24/17 14:41 Assessment and Plan - Assessment and Plan (Free Text) Assessment: PATIENT SEEN AND EXAMINED AT THE BEDSIDE HEAD CT WAS KATIE FOR HEMORRHAGE NO FRACTURE ON HAND XRAY/SHOULDER CT/HIP CT/ OR SPINE CT RIGHT FACIAL SOFT TISSUE SWELLING IMPROVING UTI TX WITH 3 DAYS FO ABX AFEBRILE NO WHITE COUNT OR FEVER DISCUSS WITH DR HOWE WHO EV PATIENT FOR REHAB PLACE UNDER THE SERVICE OF DR HOWE AT [facility] ----CALL DR HOWE FOR ADMITTING ORDER CONTINUE ALL YOUR HOME MEDICATION ORDER ACTIVITY TOLERATED AND PER FACILITY PROTOCOL CALL DR HOWE FOR FURTHER ORDER DISCUSS WITH PATIENT WHO AGREE AND VERBALIZED UNDERSTANDING
--- NOTE | 2017-07-28 15:00 | CP.PCM.PN ---
Subjective - Date & Time of Evaluation Date of Evaluation: 07/28/17 Time of Evaluation: 14:59 - Subjective Subjective: Patient today complaining of generalized body pain. Yesterday she was able to stand up. He states. Today weakness noted. Eating okay, poor appetite. Still did not have any BM. On examination: HEENT PERRLA, neck supple No thyromegaly was noted and no cervical adenopathy noted Chest bilateral good air entry, no wheezing or rales noted CVS regular heart sound, no murmur Abdomen soft and no organomegaly Extremities no pedal edema, no leg swelling, pedal pulses are good. 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 Assessment and the plan. 87 female with history of PE, DVT, osteoarthritis, hypothyroidism, admitted with recurrent fall, right eye contusion and ecchymosis. For physical therapy evaluation and management Objective - Vital Signs/Intake and Output Vital Signs (last 24 hours): Temp Pulse Resp BP Pulse Ox 97.5 F L 82 21 116/67 95 07/28/17 07:05 07/28/17 07:05 07/28/17 07:05 07/28/17 07:05 07/28/17 07:05 Intake and Output: 07/28/17 07/28/17 06:59 18:59 Intake Total 300 Balance 300 - Medications Medications: Current Medications Acetaminophen (Tylenol 325mg Tab) 650 mg PO Q6 PRN PRN Reason: Pain, Mild (1-3) Last Admin: 07/24/17 22:23 Dose: 650 mg Albuterol/Ipratropium (Duoneb 3 Mg/0.5 Mg (3 Ml) Ud) 3 ml INH RQ6 [facility] Last Admin: 07/28/17 13:11 Dose: Not Given Alprazolam (Xanax) 0.25 mg PO BID [facility] Last Admin: 07/28/17 11:17 Dose: 0.25 mg Apixaban (Eliquis) 5 mg PO BID [facility] Last Admin: 07/28/17 11:17 Dose: 5 mg Docusate Sodium (Colace) 100 mg PO BID [facility] Last Admin: 07/28/17 11:17 Dose: 100 mg Gabapentin (Neurontin) 100 mg PO [facility] Last Admin: 07/27/17 21:38 Dose: 100 mg Cefepime HCl (Maxipime Iv 1 Gm Premix) 1 gm in 50 mls @ 100 mls/hr IVPB Q12H [facility] PRN Reason: Protocol Stop: 07/31/17 23:01 Last Admin: 07/28/17 12:00 Dose: Not Given Levothyroxine Sodium (Synthroid) 88 mcg PO DAILY@0630 [facility] Last Admin: 07/28/17 06:20 Dose: 88 mcg Polyethylene Glycol (Miralax) 17 gm PO DAILY [facility] Last Admin: 07/28/17 11:16 Dose: 17 gm Rosuvastatin Calcium (Crestor) 2.5 mg PO HS [facility] Last Admin: 07/27/17 21:38 Dose: 2.5 mg Tramadol HCl (Ultram) 50 mg PO BID PRN PRN Reason: Pain, moderate (4-7) - Labs Labs: 07/28/17 08:36 07/28/17 08:36 PT 20.3 SECONDS (9.7-12.2) H 07/24/17 14:41 INR 1.8 07/24/17 14:41 APTT 31 SECONDS (21-34) 07/24/17 14:41
[2017-07-28 16:07] VITALS: BP 109/68; PULSE 88; RESP 20; TEMP 97.9
--- NOTE | 2017-07-30 20:57 | CP.PCM.DIS ---
Provider - Provider Date of Admission: 07/25/17 16:24 Attending physician: Marvin Herrera MD Hospital Course - Lab Results Lab Results: Micro Results 07/24/17 Unknown Urine Urine Culture - Final Escherichia Coli Most Recent Lab Values WBC 6.0 K/uL (4.8-10.8) 07/28/17 08:36 RBC 3.59 Mil/uL (3.80-5.20) L 07/28/17 08:36 Hgb 10.9 g/dL (11.0-16.0) L 07/28/17 08:36 Hct 32.3 % (34.0-47.0) L 07/28/17 08:36 MCV 90.0 fL (81.0-99.0) 07/28/17 08:36 MCH 30.3 pg (27.0-31.0) 07/28/17 08:36 MCHC 33.6 g/dL (33.0-37.0) 07/28/17 08:36 RDW 14.4 % (11.5-14.5) 07/28/17 08:36 Plt Count 158 K/uL (130-400) 07/28/17 08:36 MPV 11.2 fL (7.2-11.7) 07/28/17 08:36 Neut % (Auto) 28.7 % (50.0-75.0) L 07/28/17 08:36 Lymph % (Auto) 49.7 % (20.0-40.0) H 07/28/17 08:36 [place] % (Auto) 8.7 % (0.0-10.0) 07/28/17 08:36 Eos % (Auto) 12.5 % (0.0-4.0) H 07/28/17 08:36 Baso % (Auto) 0.4 % (0.0-2.0) 07/28/17 08:36 Neut # (Auto) 1.7 K/uL (1.8-7.0) L 07/28/17 08:36 Lymph # (Auto) 3.0 K/uL (1.0-4.3) 07/28/17 08:36 [place] # (Auto) 0.5 K/uL (0.0-0.8) 07/28/17 08:36 Eos # (Auto) 0.7 K/uL (0.0-0.7) 07/28/17 08:36 Baso # (Auto) 0.0 K/uL (0.0-0.2) 07/28/17 08:36 PT 20.3 SECONDS (9.7-12.2) H 07/24/17 14:41 INR 1.8 07/24/17 14:41 APTT 31 SECONDS (21-34) 07/24/17 14:41 Sodium 141 mmol/L (132-148) 07/28/17 08:36 Potassium 4.0 mmol/L (3.6-5.2) 07/28/17 08:36 Chloride 104 mmol/L (98-107) 07/28/17 08:36 Carbon Dioxide 27 mmol/L (22-30) 07/28/17 08:36 Anion Gap 14 (10-20) 07/28/17 08:36 BUN 15 mg/dL (7-17) 07/28/17 08:36 Creatinine 1.0 mg/dL (0.7-1.2) 07/28/17 08:36 Est GFR ( Amer) > 60 07/28/17 08:36 Est GFR (Non-Af Amer) 53 07/28/17 08:36 Random Glucose 95 mg/dL (65-105) 07/28/17 08:36 Calcium 8.6 mg/dl (8.6-10.4) 07/28/17 08:36 Total Bilirubin 0.6 mg/dL (0.2-1.3) 07/28/17 08:36 AST 17 U/L (14-36) 07/28/17 08:36 ALT 21 U/L (9-52) 07/28/17 08:36 Alkaline Phosphatase 53 U/L (38-126) 07/28/17 08:36 Total Creatine Kinase 32 U/L (30-135) 07/24/17 14:41 CK-MB (Mass) 0.39 ng/mL (0.0-3.38) 07/24/17 14:41 Troponin I 0.0170 ng/mL (0.00-0.120) 07/24/17 14:41 Total Protein 6.0 g/dL (6.3-8.3) L 07/28/17 08:36 Albumin 2.8 g/dL (3.5-5.0) L 07/28/17 08:36 Globulin 3.2 gm/dL (2.2-3.9) 07/28/17 08:36 Albumin/Globulin Ratio 0.9 (1.0-2.1) L 07/28/17 08:36 TSH 3rd Generation < 0.02 mIU/L (0.46-4.68) L 07/27/17 07:21 Urine Color Yellow (YELLOW) 07/24/17 15:59 Urine Clarity Hazy (Clear) 07/24/17 15:59 Urine pH 5.0 (5.0-8.0) 07/24/17 15:59 Ur Specific [place] 1.012 (1.003-1.030) 07/24/17 15:59 Urine Protein Negative mg/dL (NEGATIVE) 07/24/17 15:59 Urine Glucose (UA) Normal mg/dL (Normal) 07/24/17 15:59 Urine Ketones Negative mg/dL (NEGATIVE) 07/24/17 15:59 Urine Blood 1+ (NEGATIVE) H 07/24/17 15:59 Urine Nitrate Positive (NEGATIVE) H 07/24/17 15:59 Urine Bilirubin Negative (NEGATIVE) 07/24/17 15:59 Urine Urobilinogen Normal mg/dL (0.2-1.0) 07/24/17 15:59 Ur Leukocyte Esterase 3+ [place]/uL (Negative) H 07/24/17 15:59 Urine WBC (Auto) 62 /hpf (0-5) H 07/24/17 15:59 Urine RBC (Auto) 1 /hpf (0-3) 07/24/17 15:59 Ur Squamous Epith Cells 2 /hpf (0-5) 07/24/17 15:59 Urine Bacteria Few (<OCC) H 07/24/17 15:59 Discharge Plan - Follow Up Plan Condition: FAIR Disposition: HOME/ ROUTINE Instructions: Taking Care of Bruises, Contusion (DC), Urinary Tract Infection in Women (DC) Additional Instructions: PLACE UNDER THE SERVICE OF DR HERRERA AT [facility] [place] ----CALL DR HERRERA FOR ADMITTING ORDER CONTINUE ALL YOUR HOME MEDICATION ORDER ACTIVITY TOLERATED AND PER FACILITY PROTOCOL CALL DR HERRERA FOR FURTHER ORDER Referrals: Marvin Herrera MD [Staff Provider] -
== END 2017-07-28 18:24 | DRG 690 ==
LOC: C.ER 13:21 → C.9E 18:12 → C.5S 20:49 → OBSVTOIN 07-25 16:24 → C.5S 07-25 23:08
PROVIDERS: ADMIT Internal Medicine; ATTEND Internal Medicine
DX: N39.0 Urinary tract infection, site not specified (principal); S00.10XA Contusion of unspecified eyelid and periocular area, initial encounter; M48.02 Spinal stenosis, cervical region; F03.90 Unspecified dementia, unspecified severity, without behavioral disturbance, psychotic disturbance, mood disturbance, and anxiety; W19.XXXA Unspecified fall, initial encounter; E03.9 Hypothyroidism, unspecified; G47.30 Sleep apnea, unspecified; K59.00 Constipation, unspecified; I10 Essential (primary) hypertension; R29.6 Repeated falls; R53.1 Weakness; M17.9 Osteoarthritis of knee, unspecified; L29.9 Pruritus, unspecified; K59.09 Other constipation; E87.6 Hypokalemia; Z86.711 Personal history of pulmonary embolism; Z87.891 Personal history of nicotine dependence; Z91.81 History of falling; Z79.01 Long term (current) use of anticoagulants; B96.20 Unspecified Escherichia coli [E. coli] as the cause of diseases classified elsewhere

== ENCOUNTER 2018-05-29 11:02 | Outpatient (CLI) | payer MEDICARE, OTHER | END 2018-05-29 11:03 | disposition home or self-care (01) | LOC: C.CTH 11:03 ==

== ENCOUNTER 2018-07-10 16:37 | Inpatient (IN) | payer MEDICARE, OTHER ==
[2018-07-10] MEDS ORDERED: DOPamine 400mg/250ml D5W 400 MG/250 ML BAG IV PRN (16:40)
[2018-07-10] MEDS ORDERED: DOPamine 400mg/250ml D5W 400 MG/250 ML BAG IV ONE (16:50)
[2018-07-10 17:01] LABS: BASO # 0.1 K/uL (0.0-0.2); BASO % 0.6 % (0.0-2.0); EOS % 0.5 % (0.0-4.0); HEMOGLOBIN 11.4 g/dL (11.0-16.0); LYMPH # 1.5 K/uL (1.0-4.3); LYMPH % 18.9 % (20.0-40.0); MEAN CORPUSCULAR HEMOGLOBIN 30.5 pg (27.0-31.0); MEAN PLATELET VOLUME 9.9 fL (7.2-11.7); MONO # 0.4 K/uL (0.0-0.8); MONO % 4.8 % (0.0-10.0); NEUT % 75.2 % (50.0-75.0); NRBC % 0.1 % (0.0-2.0); RBC 3.74 Mil/uL (3.80-5.20); RED CELL DISTRIBUTION WIDTH 14.2 % (11.5-14.5)
[2018-07-10] MEDS ORDERED: Glucagon Recombinant 1 mg Inj IV STA (17:04)
[2018-07-10 17:05] LABS: MEAN CELL VOLUME 95.3 fL (81.0-99.0)
--- NOTE | 2018-07-10 17:06 | C.PDOC ---
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 Upon EMS arrival, patient was noted to be bradycardic and atropine was given. Upon ED arival patient is persistently bradycardic with rate in the 30s, and hypotensive. Additional atropine given. Dopamine initiated. Patient is a poor historian, she is mildly confused at baseline. No fevers documented. No complaints of pain. Time Seen by Provider: 07/10/18 16:39 Chief Complaint (Nursing): Dizziness/Lightheaded History Per: Patient History/Exam Limitations: Clinical Condition (altered, confused at baseline) Onset Of Symptoms: Cannot Confirm Onset Usual Baseline: Alert Confused Additional History Per: [facility] Past Medical History Reviewed: Historical Data, Nursing Documentation, Vital Signs Vital Signs: Last Vital Signs Temp 97.5 F L 07/10/18 16:50 Pulse 40 L 07/10/18 16:50 Resp 20 07/10/18 16:50 BP 77/36 L 07/10/18 16:50 Pulse Ox 93 L 07/10/18 16:50 - Medical History PMH: Arthritis (KNEE, BACK), Deep Vein Thrombosis (on Eliquis), HTN, Hyperlipidemia, Hypothyroidism (W/ MEDS), Sleep Apnea - [facility] Procedures INSERTION OF INTRALUM DEV INTO INF VENA CAVA, PERC APPROACH (05/03/17) Family History: States: Unknown Family Hx - Social History Hx Tobacco Use: No Hx Alcohol Use: No Hx Substance Use: No Review Of Systems Review Of Systems: ROS cannot be obtained secondary to pt's inabilty to answer questions. Physical Exam - Physical Exam Appears: In Acute Distress Head: Atraumatic, Normacephalic Eye(s): bilateral: Normal Inspection, PERRL, EOMI Neck: Normal ROM Chest: Symmetrical Cardiovascular: Rhythm Regular, Other (Bradycardic) Respiratory: No Rales, No Rhonchi, No Wheezing, Other (Lungs clear bilaterally) Gastrointestinal/Abdominal: Soft, No Tenderness, No Distention Extremity: Bilateral: Atraumatic, Normal Color And Temperature Pulses: Left Dorsalis Pedis: Normal, Right Dorsalis Pedis: Normal Neurological/Psych: Other (Awake and alert, mildly confused) ED Course And Treatment - Laboratory Results Result Diagrams: 07/15/18 08:26 07/14/18 08:20 O2 Sat by Pulse Oximetry: 93 (NC) Pulse Ox Interpretation: Abnormal Critical Care Time - Critical Care Note Total Time (in mins): 90 Documented critical care: time excludes all time spent performing seperately billable procedures. Medical Decision Making Medical Decision Making: Impression: Altered mentation, Bradycardic, Hypotensive ro thryodi, sepsis, electorylyte cardiac Plan: - VBG - EKG - Chest x-ray - Blood work - Urinalysis - 4 mg IV Zofran - 5 mg IV Glucagon - Reassess upon ed arrival pt not responding to atropine. dopamine initated with response in bp and hr. while in ed, k corrected. calcium given. noted tsh, iv thryoxine given. acceptd icu. Labs reviewed, VBG potassium 6.[address] Grossman for ICU consult, will evaluate patient in the ED. TSH 42 Will give IV levothyroxine Discussed with Dr. Grossman, patient accepted to ICU. Disposition - Disposition Disposition: HOSPITALIZED Disposition Time: 17:00 Condition: CRITICAL - Clinical Impression Clinical Impression: Myxedema coma, Hypothyroid, Renal failure, Hyperkalemia, UTI (urinary tract infection) - Scribe Statement The provider has reviewed the documentation as recorded by the Emmett Lawson Provider Attestation: All medical record entries made by the Ummibcasi were at my direction and personally dictated by me. I have reviewed the chart and agree that the record accurately reflects my personal performance of the history, physical exam, medical decision making, and the department course for this patient. I have also personally directed, reviewed, and agree with the discharge instructions and disposition. Decision To Admit - Pt Status Changed To: Hospital Disposition Of: Inpatient - Admit Certification Admit to Inpatient:: After my assessment, the patient will require hospitalization for at least two midnights. This is because of the severity of symptoms shown, intensity of services needed, and/or the medical risk in this patient being treated as an outpatient. - InPatient: Physician Admission Certification:: need icu - . Bed Request Type: ICU Admitting Physician: Marvin Herrera Patient Diagnosis: Myxedema coma, Hypothyroid, Renal failure, Hyperkalemia, UTI (urinary tract infection)
[2018-07-10 17:10] LABS: INR 1.6
[2018-07-10 17:19] LABS: VENOUS BLOOD GAS PCO2 51 mmHg (40-60); VENOUS BLOOD GAS PO2 26 mm/Hg (30-55)
[2018-07-10 17:24] LABS: TROPONIN I 0.044 ng/mL (0.00-0.120)
[2018-07-10 17:31] LABS: ALB/GLOB RATIO 1.3 (1.0-2.1); ALBUMIN 3.9 g/dL (3.5-5.0); CALCIUM 8.2 mg/dl (8.6-10.4)
[2018-07-10] MEDS ORDERED: Calcium Gluconate 4.65 mEq/10 ml Inj IVP ONE (17:31)
[2018-07-10] MEDS ORDERED: (Novolin R) Insulin Human Regular 100 units/ml vial IVP STA (17:32)
[2018-07-10] MEDS ORDERED: Dextrose 50% SYRINGE Inj (50 ml) IV STA (17:32)
[2018-07-10] MEDS ORDERED: Sodium Bicarbonate (8.4%) 50 Meq Syringe IVP ONE (17:35)
[2018-07-10] MEDS ORDERED: (Novolin R) Insulin Human Regular 100 units/ml vial ONE (17:44)
[2018-07-10] MEDS ORDERED: Dextrose 50% SYRINGE Inj (50 ml) ONE (17:44)
[2018-07-10] MEDS ORDERED: Calcium Gluconate 4.65 mEq/10 ml Inj ONE (17:44)
[2018-07-10] MEDS ORDERED: Sodium Bicarbonate (8.4%) 50 mEq Vial ONE (17:45)
[2018-07-10] MEDS ORDERED: Levothyroxine 200 mcg (0.2 mg) Inj IVP STA ×2 (17:46→17:58)
[2018-07-10] MEDS ORDERED: Dextrose 5%/0.9% NS 1,000 ML IV ONE (17:58)
--- NOTE | 2018-07-10 18:02 | CP.PCM.CON ---
<Mark Dave - Last Filed: 07/10/18 19:52> History of Present Illness - History of Present Illness History of Present Illness: Critical care consult note for Dr. Grossman Consult note for bradycardia and AMS H&P obtained through chart review as AMS 88 F w/ PMHx of hypertension, hypothyroidism, chronic and constipation, history of UTI in the past, osteoarthritis, chronic pruritus. Patient [facility] from [facility] for [facility]. In ED patient was bradycardiac and was started on dopamine drip. Additionally patient had K+ 6.6, was given calcium gluconate & insulin. Unable to obtain ROS due to AMS. PMhx: hypertension, hypothyroidism, chronic and constipation, history of UTI in the past, osteoarthritis, chronic pruritus PSHx: Hysterectomy Allergies: Erythromycin, sulfamethoxazole, ampicillin SHx: Former smoker, no alcohol currently Review of Systems - Review of Systems Systems not reviewed;Unavailable: Altered Mental Status Past Patient History - Past Medical History & Family History Past Medical History?: Yes - Past Social History Smoking Status: Never Smoked - CARDIAC Hx Hypertension: Yes - PULMONARY Hx Sleep Apnea: Yes - ENDOCRINE/METABOLIC Hx Hypothyroidism: Yes (W/ MEDS) - INTEGUMENTARY Other/Comment: multiple bruises over body - MUSCULOSKELETAL/RHEUMATOLOGICAL Hx Arthritis: Yes (KNEE, BACK) - PSYCHIATRIC Hx Substance Use: No - SURGICAL HISTORY Hx Surgeries: No - ANESTHESIA Hx Anesthesia: No Meds Allergies/Adverse Reactions: Allergies Allergy/AdvReac Type Severity Reaction Status Date / Time erythromycin base Allergy Verified 03/27/17 20:35 Sulfa (Sulfonamide Allergy Verified 07/24/17 13:31 Antibiotics) - Medications Medications: Current Medications Dopamine HCl/Dextrose (Dopamine 400mg/250ml D5w) 400 mg in 250 mls @ 36.375 mls/hr IV .[id number] PRN; Protocol PRN Reason: TITRATE PER MD ORDER Last Admin: 07/10/18 16:40 Dose: 36.375 mls/hr Physical Exam - Constitutional Appears: Toxic - Head Exam Head Exam: NORMAL INSPECTION - Eye Exam Eye Exam: Normal appearance - ENT Exam ENT Exam: Mucous Membranes Moist - Respiratory Exam Respiratory Exam: Clear to Auscultation Bilateral, NORMAL BREATHING PATTERN. absent: Rales, Rhonchi, Wheezes - Cardiovascular Exam Cardiovascular Exam: +S1, +S2 - GI/Abdominal Exam GI & Abdominal Exam: Normal Bowel Sounds, Soft - Extremities Exam Extremities exam: Positive for: normal inspection. Negative for: pedal edema - Neurological Exam Neurological exam: Alert Additional comments: Responsive to pain, non verbal - Skin Skin Exam: Dry, Normal Color, Warm Results - Vital Signs Recent Vital Signs: Last Vital Signs Temp 97.5 F L 07/10/18 16:50 Pulse 68 07/10/18 18:00 Resp 18 07/10/18 18:00 BP 162/69 H 07/10/18 18:00 Pulse Ox 95 07/10/18 18:00 - Labs Result Diagrams: 07/10/18 16:56 07/10/18 16:56 Labs: Laboratory Results - last 24 hr 07/10/18 07/10/18 07/10/18 16:56 16:56 16:56 WBC 8.0 RBC 3.74 L Hgb 11.4 Hct 35.7 MCV 95.3 D MCH 30.5 MCHC 32.0 L RDW 14.2 Plt Count 168 MPV 9.9 Neut % (Auto) 75.2 H Lymph % (Auto) 18.9 L [place] % (Auto) 4.8 Eos % (Auto) 0.5 Baso % (Auto) 0.6 Neut # (Auto) 6.0 Lymph # (Auto) 1.5 [place] # (Auto) 0.4 Eos # (Auto) 0.0 Baso # (Auto) 0.1 PT 17.0 H INR 1.6 APTT 31 pO2 VBG pH VBG pCO2 VBG HCO3 VBG Total CO2 VBG O2 Sat (Calc) VBG Base Excess VBG Potassium Glucose Lactate Crit Value Called To Crit Value Called By Crit Value Read Back Blood Gas Notified Time Sodium 135 Potassium 6.6 H* D Chloride 100 Carbon Dioxide 23 Anion Gap 19 BUN 63 H Creatinine 4.2 H Est GFR ( Amer) 12 Est GFR (Non-Af Amer) 10 Random Glucose 146 H D Calcium 8.2 L Total Bilirubin 0.5 AST 22 ALT 14 Alkaline Phosphatase 67 Troponin I 0.0440 Total Protein 6.8 Albumin 3.9 Globulin 2.9 Albumin/Globulin Ratio 1.3 TSH 3rd Generation 42.50 H Venous Blood Potassium 07/10/18 17:16 WBC RBC Hgb Hct MCV MCH MCHC RDW Plt Count MPV Neut % (Auto) Lymph % (Auto) [place] % (Auto) Eos % (Auto) Baso % (Auto) Neut # (Auto) Lymph # (Auto) [place] # (Auto) Eos # (Auto) Baso # (Auto) PT INR APTT pO2 26 L VBG pH 7.30 L VBG pCO2 51 VBG HCO3 21.8 VBG Total CO2 26.7 VBG O2 Sat (Calc) 40.3 VBG Base Excess -2.0 L VBG Potassium 6.6 H* Glucose 150 H Lactate 2.1 Crit Value Called To Dr cuevas Crit Value Called By Pradeep meek Crit Value Read Back Y Blood Gas Notified Time 1719 Sodium 134.0 Potassium Chloride 101.0 Carbon Dioxide Anion Gap BUN Creatinine Est GFR ( Amer) Est GFR (Non-Af Amer) Random Glucose Calcium Total Bilirubin AST ALT Alkaline Phosphatase Troponin I Total Protein Albumin Globulin Albumin/Globulin Ratio TSH 3rd Generation Venous Blood Potassium 6.6 H* Assessment & Plan - Assessment and Plan (Free Text) Assessment: 88 F w/ hx of hypothyrodism, presented to ED AMS, bradycardiac, hyperkalemic, elevated TSH & KETTY from [facility], 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 myxedema coma - levothyroxine 300 mcg IVP X 1 given - levothyroxine 50 mcg IVP daily - hydrocortisone 50 Q8H - F/u Free T4 & T3 in AM GI - NPO due to AMS - pending mental status, swallow eval in AM - purewick catheter - F/u urine culture PPx - GI: pepcid 20 PO daily - DVT: heparin 5000 units SC Q8H, SCDs <Adriano Grossman S - Last Filed: 07/11/18 17:44> Meds - Medications Medications: Current Medications Albuterol/Ipratropium (Duoneb 3 Mg/0.5 Mg (3 Ml) Ud) 3 ml INH RQ6 [facility] Last Admin: 07/11/18 13:17 Dose: 3 ml Alprazolam (Xanax) 0.25 mg PO BID [facility] Famotidine (Pepcid) 20 mg PO DAILY [facility] Last Admin: 07/11/18 10:06 Dose: 20 mg Heparin Sodium (Porcine) (Heparin) 5,000 units SC Q8 [facility] Last Admin: 07/11/18 14:33 Dose: 5,000 units Hydrocortisone Sodium Succinate (Solu-Cortef) 50 mg IV Q12 [facility] Last Admin: 07/11/18 10:05 Dose: 50 mg Dextrose/Sodium Chloride (Dextrose 5%/0.9% Ns 1000 Ml) 1,000 mls @ 75 mls/hr IV .[id number] [facility] Levothyroxine Sodium (Synthroid) 100 mcg IVP DAILY [facility] Last Admin: 07/11/18 12:07 Dose: 100 mcg Rosuvastatin Calcium (Crestor) 2.5 mg PO HS [facility] Last Admin: 07/10/18 22:50 Dose: 2.5 mg Results - Vital Signs Recent Vital Signs: Last Vital Signs Temp 98.2 F 07/11/18 12:00 Pulse 89 07/11/18 13:00 Resp 13 07/11/18 13:00 BP 131/44 L 07/11/18 12:58 Pulse Ox 100 07/11/18 12:00 - Labs Result Diagrams: 07/11/18 06:26 07/11/18 06:26 Labs: Laboratory Results - last 24 hr 07/10/18 07/10/18 07/10/18 17:38 18:15 21:00 WBC RBC Hgb Hct MCV MCH MCHC RDW Plt Count MPV Neut % (Auto) Lymph % (Auto) [place] % (Auto) Eos % (Auto) Baso % (Auto) Neut # (Auto) Lymph # (Auto) [place] # (Auto) Eos # (Auto) Baso # (Auto) ESR pO2 VBG pH VBG pCO2 VBG HCO3 VBG Total CO2 VBG O2 Sat (Calc) VBG Base Excess VBG Potassium Glucose Lactate Sodium 134 Potassium 5.6 H Chloride 99 Carbon Dioxide 24 Anion Gap 17 BUN 61 H Creatinine 4.0 H Est GFR ( Amer) 13 Est GFR (Non-Af Amer) 11 Random Glucose 179 H D Calcium 8.4 L Phosphorus Magnesium Total Bilirubin 0.6 AST 22 ALT 12 Alkaline Phosphatase 66 Ammonia C-Reactive Protein Total Protein 6.8 Albumin 3.8 Globulin 3.0 Albumin/Globulin Ratio 1.3 Vitamin B12 Folate Free T4 1.05 Free T3 pg/mL 2.12 L TSH 3rd Generation Prolactin Plasma Cortisol PM Venous Blood Potassium Urine Color Yellow Urine Clarity Hazy Urine pH 5.0 Ur Specific [place] 1.014 Urine Protein 1+ H Urine Glucose (UA) Normal Urine Ketones Negative Urine Blood Negative Urine Nitrate Negative Urine Bilirubin Negative Urine Urobilinogen Normal Ur Leukocyte Esterase 3+ H Urine WBC (Auto) 236 H Urine RBC (Auto) 5 H Urine WBC Clumps (Auto) Many H Ur Squamous Epith Cells 7 H Urine Bacteria Rare Urine Eosinophils Ur Random Sodium 07/10/18 07/10/18 07/11/18 21:00 23:17 06:26 WBC 10.1 RBC 3.65 L Hgb 11.4 Hct 34.4 MCV 94.4 MCH 31.2 H MCHC 33.1 RDW 13.7 Plt Count 180 MPV 9.8 Neut % (Auto) 84.0 H Lymph % (Auto) 12.5 L [place] % (Auto) 3.0 Eos % (Auto) 0.0 Baso % (Auto) 0.5 Neut # (Auto) 8.5 H Lymph # (Auto) 1.3 [place] # (Auto) 0.3 Eos # (Auto) 0.0 Baso # (Auto) 0.0 ESR 45 H pO2 57 H VBG pH 7.35 VBG pCO2 37 L VBG HCO3 21.0 VBG Total CO2 21.5 L VBG O2 Sat (Calc) 93.3 H VBG Base Excess -4.7 L VBG Potassium 4.5 Glucose 169 H Lactate 1.5 Sodium 138.0 Potassium Chloride 104.0 Carbon Dioxide Anion Gap BUN Creatinine Est GFR ( Amer) Est GFR (Non-Af Amer) Random Glucose Calcium Phosphorus Magnesium Total Bilirubin AST ALT Alkaline Phosphatase Ammonia C-Reactive Protein Total Protein Albumin Globulin Albumin/Globulin Ratio Vitamin B12 Folate Free T4 Free T3 pg/mL TSH 3rd Generation Prolactin Plasma Cortisol PM 103 H Venous Blood Potassium 4.5 Urine Color Urine Clarity Urine pH Ur Specific [place] Urine Protein Urine Glucose (UA) Urine Ketones Urine Blood Urine Nitrate Urine Bilirubin Urine Urobilinogen Ur Leukocyte Esterase Urine WBC (Auto) Urine RBC (Auto) Urine WBC Clumps (Auto) Ur Squamous Epith Cells Urine Bacteria Urine Eosinophils Ur Random Sodium 07/11/18 07/11/18 07/11/18 06:26 06:26 07:47 WBC RBC Hgb Hct MCV MCH MCHC RDW Plt Count MPV Neut % (Auto) Lymph % (Auto) [place] % (Auto) Eos % (Auto) Baso % (Auto) Neut # (Auto) Lymph # (Auto) [place] # (Auto) Eos # (Auto) Baso # (Auto) ESR pO2 VBG pH VBG pCO2 VBG HCO3 VBG Total CO2 VBG O2 Sat (Calc) VBG Base Excess VBG Potassium Glucose Lactate Sodium 136 Potassium 5.1 Chloride 103 Carbon Dioxide 22 Anion Gap 15 BUN 61 H Creatinine 3.3 H Est GFR ( Amer) 16 Est GFR (Non-Af Amer) 13 Random Glucose 177 H Calcium 8.4 L Phosphorus 6.0 H Magnesium 2.4 H Total Bilirubin 0.5 AST 21 ALT 14 Alkaline Phosphatase 64 Ammonia C-Reactive Protein 15.70 H Total Protein 6.6 Albumin 3.6 Globulin 3.0 Albumin/Globulin Ratio 1.2 Vitamin B12 704 Folate 5.9 Free T4 1.48 Free T3 pg/mL 1.97 L TSH 3rd Generation 9.45 H Prolactin 7.9 Plasma Cortisol PM Venous Blood Potassium Urine Color Urine Clarity Urine pH Ur Specific [place] Urine Protein Urine Glucose (UA) Urine Ketones Urine Blood Urine Nitrate Urine Bilirubin Urine Urobilinogen Ur Leukocyte Esterase Urine WBC (Auto) Urine RBC (Auto) Urine WBC Clumps (Auto) Ur Squamous Epith Cells Urine Bacteria Urine Eosinophils Negative Ur Random Sodium 07/11/18 07/11/18 07:48 08:38 WBC RBC Hgb Hct MCV MCH MCHC RDW Plt Count MPV Neut % (Auto) Lymph % (Auto) [place] % (Auto) Eos % (Auto) Baso % (Auto) Neut # (Auto) Lymph # (Auto) [place] # (Auto) Eos # (Auto) Baso # (Auto) ESR pO2 VBG pH VBG pCO2 VBG HCO3 VBG Total CO2 VBG O2 Sat (Calc) VBG Base Excess VBG Potassium Glucose Lactate Sodium Potassium Chloride Carbon Dioxide Anion Gap BUN Creatinine Est GFR ( Amer) Est GFR (Non-Af Amer) Random Glucose Calcium Phosphorus Magnesium Total Bilirubin AST ALT Alkaline Phosphatase Ammonia < 9 L C-Reactive Protein Total Protein Albumin Globulin Albumin/Globulin Ratio Vitamin B12 Folate Free T4 Free T3 pg/mL TSH 3rd Generation Prolactin Plasma Cortisol PM Venous Blood Potassium Urine Color Urine Clarity Urine pH Ur Specific [place] Urine Protein Urine Glucose (UA) Urine Ketones Urine Blood Urine Nitrate Urine Bilirubin Urine Urobilinogen Ur Leukocyte Esterase Urine WBC (Auto) Urine RBC (Auto) Urine WBC Clumps (Auto) Ur Squamous Epith Cells Urine Bacteria Urine Eosinophils Ur Random Sodium 9 Attending/Attestation - Attestation I have personally seen and examined this patient.: Yes I have fully participated in the care of the patient.: Yes I have reviewed all pertinent clinical information: Yes Notes (Text): Patient seen and examined. Patient in myxedema coma with bradycardia Assessment and plan as per resident note Total critical care time 45 minutes
[2018-07-10] MEDS ORDERED: Sodium Chloride 0.9% 500 ML IV ONE (18:20)
[2018-07-10 18:32] LABS: SQUAMOUS EPITHIAL 7 /hpf (0-5); URINE BACTERIA RARE (<OCC); URINE BILIRUBIN NEGATIVE (NEGATIVE); URINE BLOOD NEGATIVE (NEGATIVE); URINE CLARITY Hazy (Clear); URINE COLOR Yellow (YELLOW); URINE GLUCOSE (UA) NORMAL (Normal); URINE LEUKOCYTE ESTERASE 3+ Leu/uL (Negative); URINE PROTEIN 1+ mg/dL (NEGATIVE); URINE UROBILINOGEN NORMAL mg/dL (0.2-1.0); WBC CLUMPS MANY /hpf
--- NOTE | 2018-07-10 18:42 | RAD ---
Date of service: 07/10/2018 PROCEDURE: CHEST RADIOGRAPH, 1 VIEW HISTORY: chest pain COMPARISON: 05/05/2017 FINDINGS: LUNGS: Clear. PLEURA: No pneumothorax or pleural fluid seen. CARDIOVASCULAR: Atherosclerotic calcifications identified primarily aortic arch. 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 No radiographic findings to suggest acute or significant cardiovascular disease. OSSEOUS STRUCTURES: No significant abnormalities. VISUALIZED UPPER ABDOMEN: Normal. OTHER FINDINGS: None. IMPRESSION: No active disease. No acute/significant interval changes.
--- NOTE | 2018-07-10 21:15 | CP.PCM.HP ---
History of Present Illness - History of Present Illness History of Present Illness: Chief complaint: Altered mental status History of present illness: 88-year-old female with history of hypertension, hypothyroidism, chronic constipation, history of UTI in the past, osteoarthritis, chronic pruritus brought in by the ambulance to the emergency room with altered mental status. According to the patient's daughter she was not feeling well since yesterday, she was eating small portions yesterday, and she was also having increasing discomfort, not sleeping well, more weak and drowsy yesterday. Symptoms got worse today, because of the worsening altered mental status ambulance was called during that time her heartbeat was on the 30s, immediately patient was not brought into the emergency room. In the emergency room patient was noted to have severe bradycardia, workup was positive for hyperkalemia worsening renal insufficiency, also very highly elevated TSH level. ICU evaluation was called in, and the patient was brought to the intensive care unit. Patient was given intravenously levothyroxine, also placed on dopamine, the heartbeat is slightly better now. But the patient is still not responding well. She is completely unarousable even with deep stimuli. But respiration is stable at this time. Patient was given fentanyl 50 mcg intravenously in the emergency room around 4 PM. Patient also had a CAT scan of the head and the results are pending at this time. I spoke to the patient's daughter who is next to her. According to the patient's daughter, in the care home patient is able to only sit up mostly, having difficult time in getting up and walking, and associate with the increasing leg swelling. There was concern about recently swelling over the left side of the neck, 3 weeks ago patient was started on antibiotic, and the swelling subsided after that. At that time patient was not eating well also. Patient is a son who recently 2 months ago, but that she got the news recently, and since then she becoming more depressed also. Past medical history: Hypothyroidism, hypertension, insomnia, constipation, chronic pruritus, Deep venous thrombosis, Pulmonary embolism status post IVC filter Allergies: Erythromycin, sulfamethoxazole, ampicillin Surgical history hysterectomy many years ago. Family history significant for arthritis diabetes and heart disease Social history: Former smoker, no alcohol currently [facility] Current medications: Patient is a current medications reviewed from the chart Review of systems: Patient is now more drowsy. Not responding to stimuli at all. Vital signs otherwise stable. No leg swelling noted. In normal days the patient is awake and responding and able to talk comfortably. But she is having difficult time in getting up and walking, mostly bedridden, sometimes able to sit up Vital signs reviewed Dry mucosa noted Neck supple Chest bilateral good air entry Heart sounds are regular Abdomen soft Nontender. Extremities no pedal edema [address] [employer], increasingly drowsy, unresponsive to deep stimuli now, arousable to very deep stimuli. Renal functions is worsening, K level is 6.6 now. Also elevated TSH level noted. Severe bradycardia noted in the EKG. X-ray clear chest noted Assessment and recommendation: 87-year-old female with a history of hypertension, hypothyroidism, chronic constipation, history of UTI, hypokalemia, urinary tract infection, osteoarthritis, history of recurrent fall care home resident, now admitted with altered mental status. Patient is having acute renal insufficiency with hyperkalemia. Possible drug-induced secondary to recent antibiotic intake likely. Dehydration is also possible. Severe hypothyroidism, associated with the myxedema related [address] [employer] symptoms likely also. Will get neurological evaluation Renal evaluation Treatment for hyperkalemia Renal function monitoring. Sonogram of the abdomen recommended current CAT scan of the abdomen also recommended. DVT and GI prophylaxis and will follow the patient Present on Admission - Present on Admission Any Indicators Present on Admission: No History of DVT/PE: No History of Uncontrolled Diabetes: No Urinary Catheter: No Decubitus Ulcer Present: No Past Patient History - Past Medical History & Family History Past Medical History?: Yes - Past Social History Smoking Status: Never Smoked - CARDIAC Hx Hypertension: Yes - PULMONARY Hx Sleep Apnea: Yes - ENDOCRINE/METABOLIC Hx Hypothyroidism: Yes (W/ MEDS) - INTEGUMENTARY Other/Comment: multiple bruises over body - MUSCULOSKELETAL/RHEUMATOLOGICAL Hx Arthritis: Yes (KNEE, BACK) - PSYCHIATRIC Hx Substance Use: No - SURGICAL HISTORY Hx Surgeries: No - ANESTHESIA Hx Anesthesia: No Meds Allergies/Adverse Reactions: Allergies Allergy/AdvReac Type Severity Reaction Status Date / Time erythromycin base Allergy Verified 03/27/17 20:35 Sulfa (Sulfonamide Allergy Verified 07/24/17 13:31 Antibiotics) Results - Vital Signs Recent Vital Signs: Last Vital Signs Temp 97.5 F L 07/10/18 16:50 Pulse 80 07/10/18 18:25 Resp 18 07/10/18 18:25 BP 126/61 07/10/18 18:25 Pulse Ox 93 L 07/10/18 18:29 - Labs Result Diagrams: 07/10/18 16:56 07/10/18 16:56 Labs: Laboratory Results - last 24 hr 07/10/18 07/10/18 07/10/18 16:56 16:56 16:56 WBC 8.0 RBC 3.74 L Hgb 11.4 Hct 35.7 MCV 95.3 D MCH 30.5 MCHC 32.0 L RDW 14.2 Plt Count 168 MPV 9.9 Neut % (Auto) 75.2 H Lymph % (Auto) 18.9 L [place] % (Auto) 4.8 Eos % (Auto) 0.5 Baso % (Auto) 0.6 Neut # (Auto) 6.0 Lymph # (Auto) 1.5 [place] # (Auto) 0.4 Eos # (Auto) 0.0 Baso # (Auto) 0.1 PT 17.0 H INR 1.6 APTT 31 pO2 VBG pH VBG pCO2 VBG HCO3 VBG Total CO2 VBG O2 Sat (Calc) VBG Base Excess VBG Potassium Glucose Lactate Crit Value Called To Crit Value Called By Crit Value Read Back Blood Gas Notified Time Sodium 135 Potassium 6.6 H* D Chloride 100 Carbon Dioxide 23 Anion Gap 19 BUN 63 H Creatinine 4.2 H Est GFR ( Amer) 12 Est GFR (Non-Af Amer) 10 Random Glucose 146 H D Calcium 8.2 L Total Bilirubin 0.5 AST 22 ALT 14 Alkaline Phosphatase 67 Troponin I 0.0440 Total Protein 6.8 Albumin 3.9 Globulin 2.9 Albumin/Globulin Ratio 1.3 Free T4 TSH 3rd Generation 42.50 H Venous Blood Potassium Urine Color Urine Clarity Urine pH Ur Specific [place] Urine Protein Urine Glucose (UA) Urine Ketones Urine Blood Urine Nitrate Urine Bilirubin Urine Urobilinogen Ur Leukocyte Esterase Urine WBC (Auto) Urine RBC (Auto) Urine WBC Clumps (Auto) Ur Squamous Epith Cells Urine Bacteria 07/10/18 07/10/18 07/10/18 17:16 17:38 18:15 WBC RBC Hgb Hct MCV MCH MCHC RDW Plt Count MPV Neut % (Auto) Lymph % (Auto) [place] % (Auto) Eos % (Auto) Baso % (Auto) Neut # (Auto) Lymph # (Auto) [place] # (Auto) Eos # (Auto) Baso # (Auto) PT INR APTT pO2 26 L VBG pH 7.30 L VBG pCO2 51 VBG HCO3 21.8 VBG Total CO2 26.7 VBG O2 Sat (Calc) 40.3 VBG Base Excess -2.0 L VBG Potassium 6.6 H* Glucose 150 H Lactate 2.1 Crit Value Called To Dr cuevas Crit Value Called By Pradeep meek Crit Value Read Back Y Blood Gas Notified Time 1719 Sodium 134.0 Potassium Chloride 101.0 Carbon Dioxide Anion Gap BUN Creatinine Est GFR ( Amer) Est GFR (Non-Af Amer) Random Glucose Calcium Total Bilirubin AST ALT Alkaline Phosphatase Troponin I Total Protein Albumin Globulin Albumin/Globulin Ratio Free T4 1.05 TSH 3rd Generation Venous Blood Potassium 6.6 H* Urine Color Yellow Urine Clarity Hazy Urine pH 5.0 Ur Specific [place] 1.014 Urine Protein 1+ H Urine Glucose (UA) Normal Urine Ketones Negative Urine Blood Negative Urine Nitrate Negative Urine Bilirubin Negative Urine Urobilinogen Normal Ur Leukocyte Esterase 3+ H Urine WBC (Auto) 236 H Urine RBC (Auto) 5 H Urine WBC Clumps (Auto) Many H Ur Squamous Epith Cells 7 H Urine Bacteria Rare
[2018-07-10 21:19] LABS: ALB/GLOB RATIO 1.3 (1.0-2.1); ALBUMIN 3.8 g/dL (3.5-5.0); CALCIUM 8.4 mg/dl (8.6-10.4)
[2018-07-10] MEDS: Rosuvastatin Calcium 2.5 mg Tab PO SCH (22:50)
[2018-07-10 23:18] LABS: VENOUS BLOOD GAS BASE EXCESS -4.7 mmol/L (0.0-2.0); VENOUS BLOOD GAS PCO2 37 mmHg (40-60); VENOUS BLOOD GAS PO2 57 mm/Hg (30-55); VENOUS BLOOD PH 7.35 (7.32-7.43)
[2018-07-10] MEDS ORDERED: Sod Polystyrene Sulf 15 gm/60 ml Susp PO ONE (23:44)
[2018-07-11] MEDS ORDERED: Sod Polystyrene Sulf 15 gm/60 ml Susp PO ONE (00:45)
[2018-07-11] MEDS: Albuterol-Ipratrop 3 mg / 0.5 (3 ml) UD INH SCH ×4 (01:40→20:04)
[2018-07-11] MEDS: Dextrose 5%/0.9% NS 1,000 ML IV SCH ×3 (03:10→20:10)
[2018-07-11 06:30] LABS: BASO % 0.5 % (0.0-2.0); HEMOGLOBIN 11.4 g/dL (11.0-16.0); LYMPH # 1.3 K/uL (1.0-4.3); LYMPH % 12.5 % (20.0-40.0); MEAN CELL VOLUME 94.4 fL (81.0-99.0); MEAN CORPUSCULAR HEMOGLOBIN 31.2 pg (27.0-31.0); MEAN CORPUSCULAR HGB CONC 33.1 g/dL (33.0-37.0); MEAN PLATELET VOLUME 9.8 fL (7.2-11.7); MONO # 0.3 K/uL (0.0-0.8); NEUT # 8.5 K/uL (1.8-7.0); RBC 3.65 Mil/uL (3.80-5.20); RED CELL DISTRIBUTION WIDTH 13.7 % (11.5-14.5); WHITE BLOOD COUNT 10.1 K/uL (4.8-10.8)
[2018-07-11 06:43] LABS: ALB/GLOB RATIO 1.2 (1.0-2.1); ALBUMIN 3.6 g/dL (3.5-5.0); CALCIUM 8.4 mg/dl (8.6-10.4)
--- NOTE | 2018-07-11 07:02 | CT ---
Date of service: 07/10/2018 PROCEDURE: CT HEAD WITHOUT CONTRAST. HISTORY: Altered mental status COMPARISON: 07/24/2017 TECHNIQUE: Axial computed tomography images were obtained through the head/brain without intravenous contrast. Radiation dose: Total exam DLP = 1100.88 mGy-cm. This CT exam was performed using one or more of the following dose reduction techniques: Automated exposure control, adjustment of the mA and/or kV according to patient size, and/or use of iterative reconstruction technique. FINDINGS: HEMORRHAGE: No intracranial hemorrhage. BRAIN: No mass effect or edema. Scattered focal lucencies in the subcortical and periventricular white matter suggestive for chronic microvascular ischemic change. Bilateral basal ganglia calcifications. Again identified is asymmetric soft tissue appearance of the left intrasellar region abutting the cavernous sinus. This of uncertain clinical etiology. Cannot exclude intrasellar lesion such as an adenoma, meningioma, aneurysm, and or additional etiology. Further evaluation with MRI may be helpful if clinically indicated. VENTRICLES: Unremarkable. No hydrocephalus. CALVARIUM: Unremarkable. PARANASAL SINUSES: Mild mucosal thickening the ethmoid air cells. MASTOID AIR CELLS: Partial sclerosis of the bilateral mastoid air cells. OTHER FINDINGS: Intracranial arterial calcifications. IMPRESSION: No acute intracranial abnormality. Again identified is asymmetric soft tissue appearance of the left intrasellar region abutting the cavernous sinus. This of uncertain clinical etiology. Cannot exclude intrasellar lesion such as an adenoma, meningioma, aneurysm, and or additional etiology. Further evaluation with MRI may be helpful if clinically indicated. Chronic microvascular ischemic changes. Additional findings as above. A preliminary report was generated at 7:18 p.m. on 07/10/[address] Tip Ramirez from [email or web address]. This case was placed in the PA review folder.
--- NOTE | 2018-07-11 07:10 | CP.PCM.CON ---
History of Present Illness - History of Present Illness History of Present Illness: CONSULTATION DICTATED BILATERAL CEREBRAL DYSFUNCTION - PRE EXISTING DEMENTIA WITH SUPER IMPOSTED METABOLIC AND ELECTROLYTE IMBALANCE EEG/MRI/DEMENTIA WORK UP Past Patient History - Past Medical History & Family History Past Medical History?: Yes - Past Social History Smoking Status: Never Smoked - CARDIAC Hx Hypertension: Yes - PULMONARY Hx Sleep Apnea: Yes - ENDOCRINE/METABOLIC Hx Hypothyroidism: Yes (W/ MEDS) - INTEGUMENTARY Other/Comment: multiple bruises over body - MUSCULOSKELETAL/RHEUMATOLOGICAL Hx Arthritis: Yes (KNEE, BACK) - PSYCHIATRIC Hx Substance Use: No - SURGICAL HISTORY Hx Surgeries: No - ANESTHESIA Hx Anesthesia: No Meds Allergies/Adverse Reactions: Allergies Allergy/AdvReac Type Severity Reaction Status Date / Time erythromycin base Allergy Verified 03/27/17 20:35 Sulfa (Sulfonamide Allergy Verified 07/24/17 13:31 Antibiotics) - Medications Medications: Current Medications Albuterol/Ipratropium (Duoneb 3 Mg/0.5 Mg (3 Ml) Ud) 3 ml INH RQ6 [facility] Last Admin: 07/11/18 01:40 Dose: 3 ml Famotidine (Pepcid) 20 mg PO DAILY [facility] Heparin Sodium (Porcine) (Heparin) 5,000 units SC Q8 [facility] Last Admin: 07/10/18 21:58 Dose: 5,000 units Hydrocortisone Sodium Succinate (Solu-Cortef) 50 mg IV Q12 [facility] Last Admin: 07/10/18 21:58 Dose: 50 mg Dopamine HCl/Dextrose (Dopamine 400mg/250ml D5w) 400 mg in 250 mls @ 36.375 mls/hr IV .Q6H53M PRN; Protocol PRN Reason: TITRATE PER MD ORDER Last Admin: 07/10/18 16:40 Dose: 36.375 mls/hr Levothyroxine Sodium (Levothyroxine) 200 mcg IV DAILY [facility] Rosuvastatin Calcium (Crestor) 2.5 mg PO HS [facility] Last Admin: 07/10/18 22:50 Dose: 2.5 mg Results - Vital Signs Recent Vital Signs: Last Vital Signs Temp 97.5 F L 07/11/18 04:00 Pulse 66 07/11/18 04:20 Resp 13 07/11/18 04:20 BP 124/46 L 07/11/18 03:57 Pulse Ox 98 07/11/18 04:20 - Labs Result Diagrams: 07/11/18 06:26 07/11/18 06:26 Labs: Laboratory Results - last 24 hr 07/10/18 07/10/18 07/10/18 16:56 16:56 16:56 WBC 8.0 RBC 3.74 L Hgb 11.4 Hct 35.7 MCV 95.3 D MCH 30.5 MCHC 32.0 L RDW 14.2 Plt Count 168 MPV 9.9 Neut % (Auto) 75.2 H Lymph % (Auto) 18.9 L [place] % (Auto) 4.8 Eos % (Auto) 0.5 Baso % (Auto) 0.6 Neut # (Auto) 6.0 Lymph # (Auto) 1.5 [place] # (Auto) 0.4 Eos # (Auto) 0.0 Baso # (Auto) 0.1 PT 17.0 H INR 1.6 APTT 31 pO2 VBG pH VBG pCO2 VBG HCO3 VBG Total CO2 VBG O2 Sat (Calc) VBG Base Excess VBG Potassium Glucose Lactate Crit Value Called To Crit Value Called By Crit Value Read Back Blood Gas Notified Time Sodium 135 Potassium 6.6 H* D Chloride 100 Carbon Dioxide 23 Anion Gap 19 BUN 63 H Creatinine 4.2 H Est GFR ( Amer) 12 Est GFR (Non-Af Amer) 10 Random Glucose 146 H D Calcium 8.2 L Phosphorus Magnesium Total Bilirubin 0.5 AST 22 ALT 14 Alkaline Phosphatase 67 Troponin I 0.0440 C-Reactive Protein Total Protein 6.8 Albumin 3.9 Globulin 2.9 Albumin/Globulin Ratio 1.3 Free T4 Free T3 pg/mL TSH 3rd Generation 42.50 H Plasma Cortisol PM Venous Blood Potassium Urine Color Urine Clarity Urine pH Ur Specific [place] Urine Protein Urine Glucose (UA) Urine Ketones Urine Blood Urine Nitrate Urine Bilirubin Urine Urobilinogen Ur Leukocyte Esterase Urine WBC (Auto) Urine RBC (Auto) Urine WBC Clumps (Auto) Ur Squamous Epith Cells Urine Bacteria 07/10/18 07/10/18 07/10/18 17:16 17:38 18:15 WBC RBC Hgb Hct MCV MCH MCHC RDW Plt Count MPV Neut % (Auto) Lymph % (Auto) [place] % (Auto) Eos % (Auto) Baso % (Auto) Neut # (Auto) Lymph # (Auto) [place] # (Auto) Eos # (Auto) Baso # (Auto) PT INR APTT pO2 26 L VBG pH 7.30 L VBG pCO2 51 VBG HCO3 21.8 VBG Total CO2 26.7 VBG O2 Sat (Calc) 40.3 VBG Base Excess -2.0 L VBG Potassium 6.6 H* Glucose 150 H Lactate 2.1 Crit Value Called To Dr cuevas Crit Value Called By Pradeep meek Crit Value Read Back Y Blood Gas Notified Time 1719 Sodium 134.0 Potassium Chloride 101.0 Carbon Dioxide Anion Gap BUN Creatinine Est GFR ( Amer) Est GFR (Non-Af Amer) Random Glucose Calcium Phosphorus Magnesium Total Bilirubin AST ALT Alkaline Phosphatase Troponin I C-Reactive Protein Total Protein Albumin Globulin Albumin/Globulin Ratio Free T4 1.05 Free T3 pg/mL TSH 3rd Generation Plasma Cortisol PM Venous Blood Potassium 6.6 H* Urine Color Yellow Urine Clarity Hazy Urine pH 5.0 Ur Specific [place] 1.014 Urine Protein 1+ H Urine Glucose (UA) Normal Urine Ketones Negative Urine Blood Negative Urine Nitrate Negative Urine Bilirubin Negative Urine Urobilinogen Normal Ur Leukocyte Esterase 3+ H Urine WBC (Auto) 236 H Urine RBC (Auto) 5 H Urine WBC Clumps (Auto) Many H Ur Squamous Epith Cells 7 H Urine Bacteria Rare 07/10/18 07/10/18 07/10/18 21:00 21:00 23:17 WBC RBC Hgb Hct MCV MCH MCHC RDW Plt Count MPV Neut % (Auto) Lymph % (Auto) [place] % (Auto) Eos % (Auto) Baso % (Auto) Neut # (Auto) Lymph # (Auto) [place] # (Auto) Eos # (Auto) Baso # (Auto) PT INR APTT pO2 57 H VBG pH 7.35 VBG pCO2 37 L VBG HCO3 21.0 VBG Total CO2 21.5 L VBG O2 Sat (Calc) 93.3 H VBG Base Excess -4.7 L VBG Potassium 4.5 Glucose 169 H Lactate 1.5 Crit Value Called To Crit Value Called By Crit Value Read Back Blood Gas Notified Time Sodium 134 138.0 Potassium 5.6 H Chloride 99 104.0 Carbon Dioxide 24 Anion Gap 17 BUN 61 H Creatinine 4.0 H Est GFR ( Amer) 13 Est GFR (Non-Af Amer) 11 Random Glucose 179 H D Calcium 8.4 L Phosphorus Magnesium Total Bilirubin 0.6 AST 22 ALT 12 Alkaline Phosphatase 66 Troponin I C-Reactive Protein Total Protein 6.8 Albumin 3.8 Globulin 3.0 Albumin/Globulin Ratio 1.3 Free T4 Free T3 pg/mL 2.12 L TSH 3rd Generation Plasma Cortisol PM 103 H Venous Blood Potassium 4.5 Urine Color Urine Clarity Urine pH Ur Specific [place] Urine Protein Urine Glucose (UA) Urine Ketones Urine Blood Urine Nitrate Urine Bilirubin Urine Urobilinogen Ur Leukocyte Esterase Urine WBC (Auto) Urine RBC (Auto) Urine WBC Clumps (Auto) Ur Squamous Epith Cells Urine Bacteria 07/11/18 07/11/18 07/11/18 06:26 06:26 06:26 WBC 10.1 RBC 3.65 L Hgb 11.4 Hct 34.4 MCV 94.4 MCH 31.2 H MCHC 33.1 RDW 13.7 Plt Count 180 MPV 9.8 Neut % (Auto) 84.0 H Lymph % (Auto) 12.5 L [place] % (Auto) 3.0 Eos % (Auto) 0.0 Baso % (Auto) 0.5 Neut # (Auto) 8.5 H Lymph # (Auto) 1.3 [place] # (Auto) 0.3 Eos # (Auto) 0.0 Baso # (Auto) 0.0 PT INR APTT pO2 VBG pH VBG pCO2 VBG HCO3 VBG Total CO2 VBG O2 Sat (Calc) VBG Base Excess VBG Potassium Glucose Lactate Crit Value Called To Crit Value Called By Crit Value Read Back Blood Gas Notified Time Sodium 136 Potassium 5.1 Chloride 103 Carbon Dioxide 22 Anion Gap 15 BUN 61 H Creatinine 3.3 H Est GFR ( Amer) 16 Est GFR (Non-Af Amer) 13 Random Glucose 177 H Calcium 8.4 L Phosphorus 6.0 H Magnesium 2.4 H Total Bilirubin 0.5 AST 21 ALT 14 Alkaline Phosphatase 64 Troponin I C-Reactive Protein 15.70 H Total Protein 6.6 Albumin 3.6 Globulin 3.0 Albumin/Globulin Ratio 1.2 Free T4 1.48 Free T3 pg/mL 1.97 L TSH 3rd Generation Plasma Cortisol PM Venous Blood Potassium Urine Color Urine Clarity Urine pH Ur Specific [place] Urine Protein Urine Glucose (UA) Urine Ketones Urine Blood Urine Nitrate Urine Bilirubin Urine Urobilinogen Ur Leukocyte Esterase Urine WBC (Auto) Urine RBC (Auto) Urine WBC Clumps (Auto) Ur Squamous Epith Cells Urine Bacteria
--- NOTE | 2018-07-11 07:43 | CP.CCUPN ---
<Mark Dave M - Last Filed: 07/11/18 16:32> CCU Subjective - Physician Review Subjective (Free Text): Critical care progress note for Dr. Grossman. Patient seen and examined at bedside. No overnight events reported. Patient lying in bed comfortably. Patient is more awake and alert X 2; however patient still remains confused. Patient unable to offer ROS. CCU Objective - Vital Signs / Intake & Output Vital Signs (Last 4 hours): Vital Signs Temp Pulse Resp BP Pulse Ox 07/11/18 04:20 66 13 98 07/11/18 04:10 66 19 98 07/11/18 04:00 97.5 F L 66 17 97 07/11/18 03:57 66 16 124/46 L 99 07/11/18 03:50 67 15 95 Intake and Output (Last 8hrs): Intake & Output 07/10/18 07/11/18 07/11/18 22:59 06:59 14:59 Intake Total 417.9 806.6 Output Total 0 500 Balance 417.9 306.6 Weight 220 lb 7.396 oz Intake: Intake, IV Amount 417.9 806.6 Left Antecubital 375 750 Left Proximal Port 42.9 56.6 Antecubital Output: Urine 0 500 Urethral (Awad) 500 Urine, Voided 0 0 Stool 0 - Physical Exam Physical Exam Limitations: Positive for: Altered Mental Status Head: Positive for: Atraumatic, Normocephalic Pupils: Positive for: PERRL Extroacular Muscles: Positive for: EOMI Conjunctiva: Positive for: Normal Mouth: Positive for: Moist Mucous Membranes Respiratory/Chest: Negative for: Clear to Auscultation, Accessory Muscle Use Cardiovascular: Positive for: Murmurs, Normal S1, S2 Abdomen: Negative for: Distention Lower Extremity: Positive for: Normal Inspection. Negative for: Edema, Ellie's Sign Skin: Positive for: Warm, Dry, Rashes - Medications Active Medications: Active Medications Generic Name Dose Route Start Last Admin Trade Name Freq PRN Reason Stop Dose Admin Albuterol/Ipratropium 3 ml 07/11/18 02:00 07/11/18 07:41 Duoneb 3 Mg/0.5 Mg (3 Ml) Ud INH 3 ml RQ6 MODESTA Administration Famotidine 20 mg 07/11/18 10:00 Pepcid PO DAILY MODESTA Heparin Sodium (Porcine) 5,000 units 07/10/18 22:00 07/11/18 07:00 Heparin SC 5,000 units Q8 MODESTA Administration Hydrocortisone Sodium Succinate 50 mg 07/10/18 22:00 07/10/18 21:58 Solu-Cortef IV 50 mg Q12 MODESTA Administration Dopamine HCl/Dextrose 400 mg in 250 mls @ 36.375 mls/hr 07/10/18 16:40 07/11/18 04:00 Dopamine 400mg/250ml D5w IV 0 mcg/kg/min .[id number] PRN 0 mls/hr TITRATE PER MD ORDER Titration Protocol 10 MCG/KG/MIN Levothyroxine Sodium 200 mcg 07/11/18 10:00 Levothyroxine IV DAILY MODESTA Rosuvastatin Calcium 2.5 mg 07/10/18 22:00 07/10/18 22:50 Crestor PO 2.5 mg HS MODESTA Administration - Patient Studies Lab Studies: Lab Studies 07/11/18 07/11/18 07/11/18 Range/Units 06:26 06:26 06:26 WBC 10.1 (4.8-10.8) K/uL RBC 3.65 L (3.80-5.20) Mil/uL Hgb 11.4 (11.0-16.0) g/dL Hct 34.4 (34.0-47.0) % MCV 94.4 (81.0-99.0) fL MCH 31.2 H (27.0-31.0) pg MCHC 33.1 (33.0-37.0) g/dL RDW 13.7 (11.5-14.5) % Plt Count 180 (130-400) K/uL MPV 9.8 (7.2-11.7) fL Neut % (Auto) 84.0 H (50.0-75.0) % Lymph % (Auto) 12.5 L (20.0-40.0) % [place] % (Auto) 3.0 (0.0-10.0) % Eos % (Auto) 0.0 (0.0-4.0) % Baso % (Auto) 0.5 (0.0-2.0) % Neut # (Auto) 8.5 H (1.8-7.0) K/uL Lymph # (Auto) 1.3 (1.0-4.3) K/uL [place] # (Auto) 0.3 (0.0-0.8) K/uL Eos # (Auto) 0.0 (0.0-0.7) K/uL Baso # (Auto) 0.0 (0.0-0.2) K/uL PT (9.7-12.2) SECONDS INR APTT (21-34) SECONDS pO2 (30-55) mm/Hg VBG pH (7.32-7.43) VBG pCO2 (40-60) mmHg VBG HCO3 mmol/L VBG Total CO2 (22-28) mmol/L VBG O2 Sat (Calc) (40-65) % VBG Base Excess (0.0-2.0) mmol/L VBG Potassium (3.6-5.2) mmol/L Glucose (65-105) mg/dl Lactate (0.7-2.1) mmol/L Crit Value Called To Crit Value Called By Crit Value Read Back Blood Gas Notified Time Sodium 136 (132-148) mmol/L Potassium 5.1 (3.6-5.2) mmol/L Chloride 103 (98-107) mmol/L Carbon Dioxide 22 (22-30) mmol/L Anion Gap 15 (10-20) BUN 61 H (7-17) mg/dL Creatinine 3.3 H (0.7-1.2) mg/dL Est GFR ( Amer) 16 Est GFR (Non-Af Amer) 13 Random Glucose 177 H (65-105) mg/dL Calcium 8.4 L (8.6-10.4) mg/dl Phosphorus 6.0 H (2.5-4.5) mg/dL Magnesium 2.4 H (1.6-2.3) mg/dL Total Bilirubin 0.5 (0.2-1.3) mg/dL AST 21 (14-36) U/L ALT 14 (9-52) U/L Alkaline Phosphatase 64 (38-126) U/L Troponin I (0.00-0.120) ng/mL C-Reactive Protein 15.70 H (0.0-9.9) mg/L Total Protein 6.6 (6.3-8.3) g/dL Albumin 3.6 (3.5-5.0) g/dL Globulin 3.0 (2.2-3.9) gm/dL Albumin/Globulin Ratio 1.2 (1.0-2.1) Free T4 1.48 (0.78-2.19) ng/dL Free T3 pg/mL 1.97 L (2.77-5.27) pg/mL TSH 3rd Generation 9.45 H (0.46-4.68) mIU/L Plasma Cortisol PM (1.7-14.1) ug/dL Venous Blood Potassium (3.6-5.2) mmol/L Urine Color (YELLOW) Urine Clarity (Clear) Urine pH (5.0-8.0) Ur Specific [place] (1.003-1.030) Urine Protein (NEGATIVE) mg/dL Urine Glucose (UA) (Normal) mg/dL Urine Ketones (NEGATIVE) mg/dL Urine Blood (NEGATIVE) Urine Nitrate (NEGATIVE) Urine Bilirubin (NEGATIVE) Urine Urobilinogen (0.2-1.0) mg/dL Ur Leukocyte Esterase (Negative) [place]/uL Urine WBC (Auto) (0-5) /hpf Urine RBC (Auto) (0-3) /hpf Urine WBC Clumps (Auto) (NONE) /hpf Ur Squamous Epith Cells (0-5) /hpf Urine Bacteria (<OCC) 07/10/18 07/10/18 07/10/18 Range/Units 23:17 21:00 21:00 WBC (4.8-10.8) K/uL RBC (3.80-5.20) Mil/uL Hgb (11.0-16.0) g/dL Hct (34.0-47.0) % MCV (81.0-99.0) fL MCH (27.0-31.0) pg MCHC (33.0-37.0) g/dL RDW (11.5-14.5) % Plt Count (130-400) K/uL MPV (7.2-11.7) fL Neut % (Auto) (50.0-75.0) % Lymph % (Auto) (20.0-40.0) % [place] % (Auto) (0.0-10.0) % Eos % (Auto) (0.0-4.0) % Baso % (Auto) (0.0-2.0) % Neut # (Auto) (1.8-7.0) K/uL Lymph # (Auto) (1.0-4.3) K/uL [place] # (Auto) (0.0-0.8) K/uL Eos # (Auto) (0.0-0.7) K/uL Baso # (Auto) (0.0-0.2) K/uL PT (9.7-12.2) SECONDS INR APTT (21-34) SECONDS pO2 57 H (30-55) mm/Hg VBG pH 7.35 (7.32-7.43) VBG pCO2 37 L (40-60) mmHg VBG HCO3 21.0 mmol/L VBG Total CO2 21.5 L (22-28) mmol/L VBG O2 Sat (Calc) 93.3 H (40-65) % VBG Base Excess -4.7 L (0.0-2.0) mmol/L VBG Potassium 4.5 (3.6-5.2) mmol/L Glucose 169 H (65-105) mg/dl Lactate 1.5 (0.7-2.1) mmol/L Crit Value Called To Crit Value Called By Crit Value Read Back Blood Gas Notified Time Sodium 138.0 134 (132-148) mmol/L Potassium 5.6 H (3.6-5.2) mmol/L Chloride 104.0 99 (98-107) mmol/L Carbon Dioxide 24 (22-30) mmol/L Anion Gap 17 (10-20) BUN 61 H (7-17) mg/dL Creatinine 4.0 H (0.7-1.2) mg/dL Est GFR ( Amer) 13 Est GFR (Non-Af Amer) 11 Random Glucose 179 H D (65-105) mg/dL Calcium 8.4 L (8.6-10.4) mg/dl Phosphorus (2.5-4.5) mg/dL Magnesium (1.6-2.3) mg/dL Total Bilirubin 0.6 (0.2-1.3) mg/dL AST 22 (14-36) U/L ALT 12 (9-52) U/L Alkaline Phosphatase 66 (38-126) U/L Troponin I (0.00-0.120) ng/mL C-Reactive Protein (0.0-9.9) mg/L Total Protein 6.8 (6.3-8.3) g/dL Albumin 3.8 (3.5-5.0) g/dL Globulin 3.0 (2.2-3.9) gm/dL Albumin/Globulin Ratio 1.3 (1.0-2.1) Free T4 (0.78-2.19) ng/dL Free T3 pg/mL 2.12 L (2.77-5.27) pg/mL TSH 3rd Generation (0.46-4.68) mIU/L Plasma Cortisol PM 103 H (1.7-14.1) ug/dL Venous Blood Potassium 4.5 (3.6-5.2) mmol/L Urine Color (YELLOW) Urine Clarity (Clear) Urine pH (5.0-8.0) Ur Specific [place] (1.003-1.030) Urine Protein (NEGATIVE) mg/dL Urine Glucose (UA) (Normal) mg/dL Urine Ketones (NEGATIVE) mg/dL Urine Blood (NEGATIVE) Urine Nitrate (NEGATIVE) Urine Bilirubin (NEGATIVE) Urine Urobilinogen (0.2-1.0) mg/dL Ur Leukocyte Esterase (Negative) [place]/uL Urine WBC (Auto) (0-5) /hpf Urine RBC (Auto) (0-3) /hpf Urine WBC Clumps (Auto) (NONE) /hpf Ur Squamous Epith Cells (0-5) /hpf Urine Bacteria (<OCC) 07/10/18 07/10/18 07/10/18 Range/Units 18:15 17:38 17:16 WBC (4.8-10.8) K/uL RBC (3.80-5.20) Mil/uL Hgb (11.0-16.0) g/dL Hct (34.0-47.0) % MCV (81.0-99.0) fL MCH (27.0-31.0) pg MCHC (33.0-37.0) g/dL RDW (11.5-14.5) % Plt Count (130-400) K/uL MPV (7.2-11.7) fL Neut % (Auto) (50.0-75.0) % Lymph % (Auto) (20.0-40.0) % [place] % (Auto) (0.0-10.0) % Eos % (Auto) (0.0-4.0) % Baso % (Auto) (0.0-2.0) % Neut # (Auto) (1.8-7.0) K/uL Lymph # (Auto) (1.0-4.3) K/uL [place] # (Auto) (0.0-0.8) K/uL Eos # (Auto) (0.0-0.7) K/uL Baso # (Auto) (0.0-0.2) K/uL PT (9.7-12.2) SECONDS INR APTT (21-34) SECONDS pO2 26 L (30-55) mm/Hg VBG pH 7.30 L (7.32-7.43) VBG pCO2 51 (40-60) mmHg VBG HCO3 21.8 mmol/L VBG Total CO2 26.7 (22-28) mmol/L VBG O2 Sat (Calc) 40.3 (40-65) % VBG Base Excess -2.0 L (0.0-2.0) mmol/L VBG Potassium 6.6 H* (3.6-5.2) mmol/L Glucose 150 H (65-105) mg/dl Lactate 2.1 (0.7-2.1) mmol/L Crit Value Called To Dr cuevas Crit Value Called By Pradeep meek Crit Value Read Back Y Blood Gas Notified Time 1719 Sodium 134.0 (132-148) mmol/L Potassium (3.6-5.2) mmol/L Chloride 101.0 (98-107) mmol/L Carbon Dioxide (22-30) mmol/L Anion Gap (10-20) BUN (7-17) mg/dL Creatinine (0.7-1.2) mg/dL Est GFR ( Amer) Est GFR (Non-Af Amer) Random Glucose (65-105) mg/dL Calcium (8.6-10.4) mg/dl Phosphorus (2.5-4.5) mg/dL Magnesium (1.6-2.3) mg/dL Total Bilirubin (0.2-1.3) mg/dL AST (14-36) U/L ALT (9-52) U/L Alkaline Phosphatase (38-126) U/L Troponin I (0.00-0.120) ng/mL C-Reactive Protein (0.0-9.9) mg/L Total Protein (6.3-8.3) g/dL Albumin (3.5-5.0) g/dL Globulin (2.2-3.9) gm/dL Albumin/Globulin Ratio (1.0-2.1) Free T4 1.05 (0.78-2.19) ng/dL Free T3 pg/mL (2.77-5.27) pg/mL TSH 3rd Generation (0.46-4.68) mIU/L Plasma Cortisol PM (1.7-14.1) ug/dL Venous Blood Potassium 6.6 H* (3.6-5.2) mmol/L Urine Color Yellow (YELLOW) Urine Clarity Hazy (Clear) Urine pH 5.0 (5.0-8.0) Ur Specific [place] 1.014 (1.003-1.030) Urine Protein 1+ H (NEGATIVE) mg/dL Urine Glucose (UA) Normal (Normal) mg/dL Urine Ketones Negative (NEGATIVE) mg/dL Urine Blood Negative (NEGATIVE) Urine Nitrate Negative (NEGATIVE) Urine Bilirubin Negative (NEGATIVE) Urine Urobilinogen Normal (0.2-1.0) mg/dL Ur Leukocyte Esterase 3+ H (Negative) [place]/uL Urine WBC (Auto) 236 H (0-5) /hpf Urine RBC (Auto) 5 H (0-3) /hpf Urine WBC Clumps (Auto) Many H (NONE) /hpf Ur Squamous Epith Cells 7 H (0-5) /hpf Urine Bacteria Rare (<OCC) 07/10/18 07/10/18 07/10/18 Range/Units 16:56 16:56 16:56 WBC 8.0 (4.8-10.8) K/uL RBC 3.74 L (3.80-5.20) Mil/uL Hgb 11.4 (11.0-16.0) g/dL Hct 35.7 (34.0-47.0) % MCV 95.3 D (81.0-99.0) fL MCH 30.5 (27.0-31.0) pg MCHC 32.0 L (33.0-37.0) g/dL RDW 14.2 (11.5-14.5) % Plt Count 168 (130-400) K/uL MPV 9.9 (7.2-11.7) fL Neut % (Auto) 75.2 H (50.0-75.0) % Lymph % (Auto) 18.9 L (20.0-40.0) % [place] % (Auto) 4.8 (0.0-10.0) % Eos % (Auto) 0.5 (0.0-4.0) % Baso % (Auto) 0.6 (0.0-2.0) % Neut # (Auto) 6.0 (1.8-7.0) K/uL Lymph # (Auto) 1.5 (1.0-4.3) K/uL [place] # (Auto) 0.4 (0.0-0.8) K/uL Eos # (Auto) 0.0 (0.0-0.7) K/uL Baso # (Auto) 0.1 (0.0-0.2) K/uL PT 17.0 H (9.7-12.2) SECONDS INR 1.6 APTT 31 (21-34) SECONDS pO2 (30-55) mm/Hg VBG pH (7.32-7.43) VBG pCO2 (40-60) mmHg VBG HCO3 mmol/L VBG Total CO2 (22-28) mmol/L VBG O2 Sat (Calc) (40-65) % VBG Base Excess (0.0-2.0) mmol/L VBG Potassium (3.6-5.2) mmol/L Glucose (65-105) mg/dl Lactate (0.7-2.1) mmol/L Crit Value Called To Crit Value Called By Crit Value Read Back Blood Gas Notified Time Sodium 135 (132-148) mmol/L Potassium 6.6 H* D (3.6-5.2) mmol/L Chloride 100 (98-107) mmol/L Carbon Dioxide 23 (22-30) mmol/L Anion Gap 19 (10-20) BUN 63 H (7-17) mg/dL Creatinine 4.2 H (0.7-1.2) mg/dL Est GFR ( Amer) 12 Est GFR (Non-Af Amer) 10 Random Glucose 146 H D (65-105) mg/dL Calcium 8.2 L (8.6-10.4) mg/dl Phosphorus (2.5-4.5) mg/dL Magnesium (1.6-2.3) mg/dL Total Bilirubin 0.5 (0.2-1.3) mg/dL AST 22 (14-36) U/L ALT 14 (9-52) U/L Alkaline Phosphatase 67 (38-126) U/L Troponin I 0.0440 (0.00-0.120) ng/mL C-Reactive Protein (0.0-9.9) mg/L Total Protein 6.8 (6.3-8.3) g/dL Albumin 3.9 (3.5-5.0) g/dL Globulin 2.9 (2.2-3.9) gm/dL Albumin/Globulin Ratio 1.3 (1.0-2.1) Free T4 (0.78-2.19) ng/dL Free T3 pg/mL (2.77-5.27) pg/mL TSH 3rd Generation 42.50 H (0.46-4.68) mIU/L Plasma Cortisol PM (1.7-14.1) ug/dL Venous Blood Potassium (3.6-5.2) mmol/L Urine Color (YELLOW) Urine Clarity (Clear) Urine pH (5.0-8.0) Ur Specific [place] (1.003-1.030) Urine Protein (NEGATIVE) mg/dL Urine Glucose (UA) (Normal) mg/dL Urine Ketones (NEGATIVE) mg/dL Urine Blood (NEGATIVE) Urine Nitrate (NEGATIVE) Urine Bilirubin (NEGATIVE) Urine Urobilinogen (0.2-1.0) mg/dL Ur Leukocyte Esterase (Negative) [place]elle/uL Urine WBC (Auto) (0-5) /hpf Urine RBC (Auto) (0-3) /hpf Urine WBC Clumps (Auto) (NONE) /hpf Ur Squamous Epith Cells (0-5) /hpf Urine Bacteria (<OCC) Laboratory Results - last 24 hr 07/10/18 07/10/18 07/10/18 16:56 16:56 16:56 WBC 8.0 RBC 3.74 L Hgb 11.4 Hct 35.7 MCV 95.3 D MCH 30.5 MCHC 32.0 L RDW 14.2 Plt Count 168 MPV 9.9 Neut % (Auto) 75.2 H Lymph % (Auto) 18.9 L [place] % (Auto) 4.8 Eos % (Auto) 0.5 Baso % (Auto) 0.6 Neut # (Auto) 6.0 Lymph # (Auto) 1.5 [place] # (Auto) 0.4 Eos # (Auto) 0.0 Baso # (Auto) 0.1 PT 17.0 H INR 1.6 APTT 31 pO2 VBG pH VBG pCO2 VBG HCO3 VBG Total CO2 VBG O2 Sat (Calc) VBG Base Excess VBG Potassium Glucose Lactate Crit Value Called To Crit Value Called By Crit Value Read Back Blood Gas Notified Time Sodium 135 Potassium 6.6 H* D Chloride 100 Carbon Dioxide 23 Anion Gap 19 BUN 63 H Creatinine 4.2 H Est GFR ( Amer) 12 Est GFR (Non-Af Amer) 10 Random Glucose 146 H D Calcium 8.2 L Phosphorus Magnesium Total Bilirubin 0.5 AST 22 ALT 14 Alkaline Phosphatase 67 Troponin I 0.0440 C-Reactive Protein Total Protein 6.8 Albumin 3.9 Globulin 2.9 Albumin/Globulin Ratio 1.3 Free T4 Free T3 pg/mL TSH 3rd Generation 42.50 H Plasma Cortisol PM Venous Blood Potassium Urine Color Urine Clarity Urine pH Ur Specific [place] Urine Protein Urine Glucose (UA) Urine Ketones Urine Blood Urine Nitrate Urine Bilirubin Urine Urobilinogen Ur Leukocyte Esterase Urine WBC (Auto) Urine RBC (Auto) Urine WBC Clumps (Auto) Ur Squamous Epith Cells Urine Bacteria 07/10/18 07/10/18 07/10/18 17:16 17:38 18:15 WBC RBC Hgb Hct MCV MCH MCHC RDW Plt Count MPV Neut % (Auto) Lymph % (Auto) [place] % (Auto) Eos % (Auto) Baso % (Auto) Neut # (Auto) Lymph # (Auto) [place] # (Auto) Eos # (Auto) Baso # (Auto) PT INR APTT pO2 26 L VBG pH 7.30 L VBG pCO2 51 VBG HCO3 21.8 VBG Total CO2 26.7 VBG O2 Sat (Calc) 40.3 VBG Base Excess -2.0 L VBG Potassium 6.6 H* Glucose 150 H Lactate 2.1 Crit Value Called To Dr cuevas Crit Value Called By Pradeep meek Crit Value Read Back Y Blood Gas Notified Time 1719 Sodium 134.0 Potassium Chloride 101.0 Carbon Dioxide Anion Gap BUN Creatinine Est GFR ( Amer) Est GFR (Non-Af Amer) Random Glucose Calcium Phosphorus Magnesium Total Bilirubin AST ALT Alkaline Phosphatase Troponin I C-Reactive Protein Total Protein Albumin Globulin Albumin/Globulin Ratio Free T4 1.05 Free T3 pg/mL TSH 3rd Generation Plasma Cortisol PM Venous Blood Potassium 6.6 H* Urine Color Yellow Urine Clarity Hazy Urine pH 5.0 Ur Specific [place] 1.014 Urine Protein 1+ H Urine Glucose (UA) Normal Urine Ketones Negative Urine Blood Negative Urine Nitrate Negative Urine Bilirubin Negative Urine Urobilinogen Normal Ur Leukocyte Esterase 3+ H Urine WBC (Auto) 236 H Urine RBC (Auto) 5 H Urine WBC Clumps (Auto) Many H Ur Squamous Epith Cells 7 H Urine Bacteria Rare 07/10/18 07/10/18 07/10/18 21:00 21:00 23:17 WBC RBC Hgb Hct MCV MCH MCHC RDW Plt Count MPV Neut % (Auto) Lymph % (Auto) [place] % (Auto) Eos % (Auto) Baso % (Auto) Neut # (Auto) Lymph # (Auto) [place] # (Auto) Eos # (Auto) Baso # (Auto) PT INR APTT pO2 57 H VBG pH 7.35 VBG pCO2 37 L VBG HCO3 21.0 VBG Total CO2 21.5 L VBG O2 Sat (Calc) 93.3 H VBG Base Excess -4.7 L VBG Potassium 4.5 Glucose 169 H Lactate 1.5 Crit Value Called To Crit Value Called By Crit Value Read Back Blood Gas Notified Time Sodium 134 138.0 Potassium 5.6 H Chloride 99 104.0 Carbon Dioxide 24 Anion Gap 17 BUN 61 H Creatinine 4.0 H Est GFR ( Amer) 13 Est GFR (Non-Af Amer) 11 Random Glucose 179 H D Calcium 8.4 L Phosphorus Magnesium Total Bilirubin 0.6 AST 22 ALT 12 Alkaline Phosphatase 66 Troponin I C-Reactive Protein Total Protein 6.8 Albumin 3.8 Globulin 3.0 Albumin/Globulin Ratio 1.3 Free T4 Free T3 pg/mL 2.12 L TSH 3rd Generation Plasma Cortisol PM 103 H Venous Blood Potassium 4.5 Urine Color Urine Clarity Urine pH Ur Specific [place] Urine Protein Urine Glucose (UA) Urine Ketones Urine Blood Urine Nitrate Urine Bilirubin Urine Urobilinogen Ur Leukocyte Esterase Urine WBC (Auto) Urine RBC (Auto) Urine WBC Clumps (Auto) Ur Squamous Epith Cells Urine Bacteria 07/11/18 07/11/18 07/11/18 06:26 06:26 06:26 WBC 10.1 RBC 3.65 L Hgb 11.4 Hct 34.4 MCV 94.4 MCH 31.2 H MCHC 33.1 RDW 13.7 Plt Count 180 MPV 9.8 Neut % (Auto) 84.0 H Lymph % (Auto) 12.5 L [place] % (Auto) 3.0 Eos % (Auto) 0.0 Baso % (Auto) 0.5 Neut # (Auto) 8.5 H Lymph # (Auto) 1.3 [place] # (Auto) 0.3 Eos # (Auto) 0.0 Baso # (Auto) 0.0 PT INR APTT pO2 VBG pH VBG pCO2 VBG HCO3 VBG Total CO2 VBG O2 Sat (Calc) VBG Base Excess VBG Potassium Glucose Lactate Crit Value Called To Crit Value Called By Crit Value Read Back Blood Gas Notified Time Sodium 136 Potassium 5.1 Chloride 103 Carbon Dioxide 22 Anion Gap 15 BUN 61 H Creatinine 3.3 H Est GFR ( Amer) 16 Est GFR (Non-Af Amer) 13 Random Glucose 177 H Calcium 8.4 L Phosphorus 6.0 H Magnesium 2.4 H Total Bilirubin 0.5 AST 21 ALT 14 Alkaline Phosphatase 64 Troponin I C-Reactive Protein 15.70 H Total Protein 6.6 Albumin 3.6 Globulin 3.0 Albumin/Globulin Ratio 1.2 Free T4 1.48 Free T3 pg/mL 1.97 L TSH 3rd Generation 9.45 H Plasma Cortisol PM Venous Blood Potassium Urine Color Urine Clarity Urine pH Ur Specific [place] Urine Protein Urine Glucose (UA) Urine Ketones Urine Blood Urine Nitrate Urine Bilirubin Urine Urobilinogen Ur Leukocyte Esterase Urine WBC (Auto) Urine RBC (Auto) Urine WBC Clumps (Auto) Ur Squamous Epith Cells Urine Bacteria Radiology Impressions: Radiology Impressions Chest X-Ray 07/10/18 16:50 IMPRESSION: No active disease. No acute/significant interval changes. Head CT 07/10/18 17:35 IMPRESSION: No acute intracranial abnormality. Again identified is asymmetric soft tissue appearance of the left intrasellar region abutting the cavernous sinus. This of uncertain clinical etiology. Cannot exclude intrasellar lesion such as an adenoma, meningioma, aneurysm, and or additional etiology. Further evaluation with MRI may be helpful if clinically indicated. Chronic microvascular ischemic changes. Additional findings as above. A preliminary report was generated at 7:18 p.m. on 07/10/[address] Tip Ramirez from [facility]. This case was placed in the PA review folder. EKG/Cardiology Studies: Cardiology / EKG Studies 07/10/18 16:44 EKG [ELECTROCARDIOGRAM] Stat Comment: Mode Of Transportation: BED Reason For Exam: cp 07/10/18 16:50 ELECTROCARDIOGRAM Stat Comment: Mode Of Transportation: BED Reason For Exam: chest pain 07/10/18 17:05 EKG [ELECTROCARDIOGRAM] Stat Comment: Mode Of Transportation: BED Reason For Exam: cp Fingerstick Blood Sugar Results: 194 Review of Systems - Review of Systems Systems not reviewed;Unavailable: Altered Mental Status Critical Care Progress Note - Extremities/Vascular Does the Patient need a Central Venous Catheter?: No Does the Patient have a Awad Catheter?: Yes Does the Patient need a Awad Catheter?: Yes Catheter Insertion Criteria: Need for accurate measurement of output in critically ill patient - Prophylaxis GI Prophylaxis GI: Pepsid - Prophylaxis DVT Prophylaxis DVT: Heparin SQ - Nutrition Nutrition: Nutrition Category Date Time Status NPO Diet [DIET] Diets 07/10/18 Dinner Active Assessment/Plan - Assessment and Plan (Free Text) Assessment: 88 F w/ hx of hypothyrodism, presented to ED AMS, bradycardiac, hyperkalemic, elevated TSH & KETTY from [facility], 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, off dopamine, TSH normalizing (levothyroxine 100 mcg daily), KETTY resolving (D5 NS @75ml/hr) remains altered, nursing bedside swallow: Plan: Neruo - altered - CT head 07/10: chronic changes - hx of anxiety - xanax 0.5 BID - F/u MRI in AM Cardio - bradycardia resolved, HR in 80s - d/c dopamine for HR - SBP remains in 130s, continue to hold BP meds - D5 NS @ 75 cc/hr - F/u Echo Pulm - CXR: no changes from previous xray - clear to auscultation Renal - KETTY - BUN/Cr: 63/4.2 on admission (previously 15.0 2017) - downtrending to 61/3.3 - D5NS 125 mls/hr - hyperkalemia of 6.1 on admission - resolved - replenish electrolytes as needed Heme - H/H WNL - WBC WNL - platlets WNL - F/u Blood cultures - F/u urine cultures Endo - hx of hypothyrodism - TSH on admission 42.50 - Repeat TSH 9.45, Free T4 1.48 - ? myxedema coma - levothyroxine 300 mcg IVP X 1 given 07/10 - levothyroxine 100 mcg IVP daily - hydrocortisone 50 Q8H GI - NPO due to AMS - nursing bedside swallow eval - possibly CLD pending swallow eval - purewick catheter - F/u urine culture - UA: ? UTI; however, afebrile, WBC WNL - will wait for cultures before abx start PPx - GI: pepcid 20 PO daily - DVT: heparin 5000 units SC Q8H, SCDs <Adriano Grossman S - Last Filed: 07/11/18 17:43> CCU Subjective - Physician Review Critical Care Time Spent (in minutes): 45 CCU Objective - Vital Signs / Intake & Output Intake and Output (Last 8hrs): Intake & Output 07/11/18 07/11/18 07/11/18 06:59 14:59 22:59 Intake Total 1046.0 750 Output Total 700 170 Balance 346.0 580 Weight 207 lb Intake: Intake, IV Amount 1046.0 750 Left Antecubital 1000 750 Left Proximal Port 46.0 Antecubital Output: Urine 700 170 Urethral (Awad) 700 170 Urine, Voided 0 Stool 0 - Medications Active Medications: Active Medications Generic Name Dose Route Start Last Admin Trade Name Freq PRN Reason Stop Dose Admin Albuterol/Ipratropium 3 ml 07/11/18 02:00 07/11/18 13:17 Duoneb 3 Mg/0.5 Mg (3 Ml) Ud INH 3 ml RQ6 MODESTA Administration Alprazolam 0.25 mg 07/12/18 10:00 Xanax PO BID MODESTA Famotidine 20 mg 07/11/18 10:00 07/11/18 10:06 Pepcid PO 20 mg DAILY MODESTA Administration Heparin Sodium (Porcine) 5,000 units 07/10/18 22:00 07/11/18 14:33 Heparin SC 5,000 units Q8 MODESTA Administration Hydrocortisone Sodium Succinate 50 mg 07/10/18 22:00 07/11/18 10:05 Solu-Cortef IV 50 mg Q12 MODESTA Administration Dextrose/Sodium Chloride 1,000 mls @ 75 mls/hr 07/11/18 16:00 Dextrose 5%/0.9% Ns 1000 Ml IV .[id number] MODESTA Levothyroxine Sodium 100 mcg 07/11/18 10:30 07/11/18 12:07 Synthroid IVP 100 mcg DAILY MODESTA Administration Rosuvastatin Calcium 2.5 mg 07/10/18 22:00 07/10/18 22:50 Crestor PO 2.5 mg HS MODESTA Administration - Patient Studies Lab Studies: Lab Studies 07/11/18 07/11/18 07/11/18 Range/Units 08:38 07:48 07:47 WBC (4.8-10.8) K/uL RBC (3.80-5.20) Mil/uL Hgb (11.0-16.0) g/dL Hct (34.0-47.0) % MCV (81.0-99.0) fL MCH (27.0-31.0) pg MCHC (33.0-37.0) g/dL RDW (11.5-14.5) % Plt Count (130-400) K/uL MPV (7.2-11.7) fL Neut % (Auto) (50.0-75.0) % Lymph % (Auto) (20.0-40.0) % [place] % (Auto) (0.0-10.0) % Eos % (Auto) (0.0-4.0) % Baso % (Auto) (0.0-2.0) % Neut # (Auto) (1.8-7.0) K/uL Lymph # (Auto) (1.0-4.3) K/uL [place] # (Auto) (0.0-0.8) K/uL Eos # (Auto) (0.0-0.7) K/uL Baso # (Auto) (0.0-0.2) K/uL ESR (0-20) mm/hr pO2 (30-55) mm/Hg VBG pH (7.32-7.43) VBG pCO2 (40-60) mmHg VBG HCO3 mmol/L VBG Total CO2 (22-28) mmol/L VBG O2 Sat (Calc) (40-65) % VBG Base Excess (0.0-2.0) mmol/L VBG Potassium (3.6-5.2) mmol/L Glucose (65-105) mg/dl Lactate (0.7-2.1) mmol/L Sodium (132-148) mmol/L Potassium (3.6-5.2) mmol/L Chloride (98-107) mmol/L Carbon Dioxide (22-30) mmol/L Anion Gap (10-20) BUN (7-17) mg/dL Creatinine (0.7-1.2) mg/dL Est GFR ( Amer) Est GFR (Non-Af Amer) Random Glucose (65-105) mg/dL Calcium (8.6-10.4) mg/dl Phosphorus (2.5-4.5) mg/dL Magnesium (1.6-2.3) mg/dL Total Bilirubin (0.2-1.3) mg/dL AST (14-36) U/L ALT (9-52) U/L Alkaline Phosphatase (38-126) U/L Ammonia < 9 L (9-33) umol/L C-Reactive Protein (0.0-9.9) mg/L Total Protein (6.3-8.3) g/dL Albumin (3.5-5.0) g/dL Globulin (2.2-3.9) gm/dL Albumin/Globulin Ratio (1.0-2.1) Vitamin B12 (239-931) pg/mL Folate ng/mL Free T4 (0.78-2.19) ng/dL Free T3 pg/mL (2.77-5.27) pg/mL TSH 3rd Generation (0.46-4.68) mIU/L Prolactin (3.0-18.9) ng/mL Plasma Cortisol PM (1.7-14.1) ug/dL Venous Blood Potassium (3.6-5.2) mmol/L Urine Color (YELLOW) Urine Clarity (Clear) Urine pH (5.0-8.0) Ur Specific [place] (1.003-1.030) Urine Protein (NEGATIVE) mg/dL Urine Glucose (UA) (Normal) mg/dL Urine Ketones (NEGATIVE) mg/dL Urine Blood (NEGATIVE) Urine Nitrate (NEGATIVE) Urine Bilirubin (NEGATIVE) Urine Urobilinogen (0.2-1.0) mg/dL Ur Leukocyte Esterase (Negative) [place]/uL Urine WBC (Auto) (0-5) /hpf Urine RBC (Auto) (0-3) /hpf Urine WBC Clumps (Auto) (NONE) /hpf Ur Squamous Epith Cells (0-5) /hpf Urine Bacteria (<OCC) Urine Eosinophils Negative (NEGATIVE) Ur Random Sodium 9 mmol/L 07/11/18 07/11/18 07/11/18 Range/Units 06:26 06:26 06:26 WBC 10.1 (4.8-10.8) K/uL RBC 3.65 L (3.80-5.20) Mil/uL Hgb 11.4 (11.0-16.0) g/dL Hct 34.4 (34.0-47.0) % MCV 94.4 (81.0-99.0) fL MCH 31.2 H (27.0-31.0) pg MCHC 33.1 (33.0-37.0) g/dL RDW 13.7 (11.5-14.5) % Plt Count 180 (130-400) K/uL MPV 9.8 (7.2-11.7) fL Neut % (Auto) 84.0 H (50.0-75.0) % Lymph % (Auto) 12.5 L (20.0-40.0) % [place] % (Auto) 3.0 (0.0-10.0) % Eos % (Auto) 0.0 (0.0-4.0) % Baso % (Auto) 0.5 (0.0-2.0) % Neut # (Auto) 8.5 H (1.8-7.0) K/uL Lymph # (Auto) 1.3 (1.0-4.3) K/uL [place] # (Auto) 0.3 (0.0-0.8) K/uL Eos # (Auto) 0.0 (0.0-0.7) K/uL Baso # (Auto) 0.0 (0.0-0.2) K/uL ESR 45 H (0-20) mm/hr pO2 (30-55) mm/Hg VBG pH (7.32-7.43) VBG pCO2 (40-60) mmHg VBG HCO3 mmol/L VBG Total CO2 (22-28) mmol/L VBG O2 Sat (Calc) (40-65) % VBG Base Excess (0.0-2.0) mmol/L VBG Potassium (3.6-5.2) mmol/L Glucose (65-105) mg/dl Lactate (0.7-2.1) mmol/L Sodium 136 (132-148) mmol/L Potassium 5.1 (3.6-5.2) mmol/L Chloride 103 (98-107) mmol/L Carbon Dioxide 22 (22-30) mmol/L Anion Gap 15 (10-20) BUN 61 H (7-17) mg/dL Creatinine 3.3 H (0.7-1.2) mg/dL Est GFR ( Amer) 16 Est GFR (Non-Af Amer) 13 Random Glucose 177 H (65-105) mg/dL Calcium 8.4 L (8.6-10.4) mg/dl Phosphorus 6.0 H (2.5-4.5) mg/dL Magnesium 2.4 H (1.6-2.3) mg/dL Total Bilirubin 0.5 (0.2-1.3) mg/dL AST 21 (14-36) U/L ALT 14 (9-52) U/L Alkaline Phosphatase 64 (38-126) U/L Ammonia (9-33) umol/L C-Reactive Protein 15.70 H (0.0-9.9) mg/L Total Protein 6.6 (6.3-8.3) g/dL Albumin 3.6 (3.5-5.0) g/dL Globulin 3.0 (2.2-3.9) gm/dL Albumin/Globulin Ratio 1.2 (1.0-2.1) Vitamin B12 704 (239-931) pg/mL Folate 5.9 ng/mL Free T4 1.48 (0.78-2.19) ng/dL Free T3 pg/mL 1.97 L (2.77-5.27) pg/mL TSH 3rd Generation 9.45 H (0.46-4.68) mIU/L Prolactin 7.9 (3.0-18.9) ng/mL Plasma Cortisol PM (1.7-14.1) ug/dL Venous Blood Potassium (3.6-5.2) mmol/L Urine Color (YELLOW) Urine Clarity (Clear) Urine pH (5.0-8.0) Ur Specific [place] (1.003-1.030) Urine Protein (NEGATIVE) mg/dL Urine Glucose (UA) (Normal) mg/dL Urine Ketones (NEGATIVE) mg/dL Urine Blood (NEGATIVE) Urine Nitrate (NEGATIVE) Urine Bilirubin (NEGATIVE) Urine Urobilinogen (0.2-1.0) mg/dL Ur Leukocyte Esterase (Negative) [place]/uL Urine WBC (Auto) (0-5) /hpf Urine RBC (Auto) (0-3) /hpf Urine WBC Clumps (Auto) (NONE) /hpf Ur Squamous Epith Cells (0-5) /hpf Urine Bacteria (<OCC) Urine Eosinophils (NEGATIVE) Ur Random Sodium mmol/L 07/10/18 07/10/18 07/10/18 Range/Units 23:17 21:00 21:00 WBC (4.8-10.8) K/uL RBC (3.80-5.20) Mil/uL Hgb (11.0-16.0) g/dL Hct (34.0-47.0) % MCV (81.0-99.0) fL MCH (27.0-31.0) pg MCHC (33.0-37.0) g/dL RDW (11.5-14.5) % Plt Count (130-400) K/uL MPV (7.2-11.7) fL Neut % (Auto) (50.0-75.0) % Lymph % (Auto) (20.0-40.0) % [place] % (Auto) (0.0-10.0) % Eos % (Auto) (0.0-4.0) % Baso % (Auto) (0.0-2.0) % Neut # (Auto) (1.8-7.0) K/uL Lymph # (Auto) (1.0-4.3) K/uL [place] # (Auto) (0.0-0.8) K/uL Eos # (Auto) (0.0-0.7) K/uL Baso # (Auto) (0.0-0.2) K/uL ESR (0-20) mm/hr pO2 57 H (30-55) mm/Hg VBG pH 7.35 (7.32-7.43) VBG pCO2 37 L (40-60) mmHg VBG HCO3 21.0 mmol/L VBG Total CO2 21.5 L (22-28) mmol/L VBG O2 Sat (Calc) 93.3 H (40-65) % VBG Base Excess -4.7 L (0.0-2.0) mmol/L VBG Potassium 4.5 (3.6-5.2) mmol/L Glucose 169 H (65-105) mg/dl Lactate 1.5 (0.7-2.1) mmol/L Sodium 138.0 134 (132-148) mmol/L Potassium 5.6 H (3.6-5.2) mmol/L Chloride 104.0 99 (98-107) mmol/L Carbon Dioxide 24 (22-30) mmol/L Anion Gap 17 (10-20) BUN 61 H (7-17) mg/dL Creatinine 4.0 H (0.7-1.2) mg/dL Est GFR ( Amer) 13 Est GFR (Non-Af Amer) 11 Random Glucose 179 H D (65-105) mg/dL Calcium 8.4 L (8.6-10.4) mg/dl Phosphorus (2.5-4.5) mg/dL Magnesium (1.6-2.3) mg/dL Total Bilirubin 0.6 (0.2-1.3) mg/dL AST 22 (14-36) U/L ALT 12 (9-52) U/L Alkaline Phosphatase 66 (38-126) U/L Ammonia (9-33) umol/L C-Reactive Protein (0.0-9.9) mg/L Total Protein 6.8 (6.3-8.3) g/dL Albumin 3.8 (3.5-5.0) g/dL Globulin 3.0 (2.2-3.9) gm/dL Albumin/Globulin Ratio 1.3 (1.0-2.1) Vitamin B12 (239-931) pg/mL Folate ng/mL Free T4 (0.78-2.19) ng/dL Free T3 pg/mL 2.12 L (2.77-5.27) pg/mL TSH 3rd Generation (0.46-4.68) mIU/L Prolactin (3.0-18.9) ng/mL Plasma Cortisol PM 103 H (1.7-14.1) ug/dL Venous Blood Potassium 4.5 (3.6-5.2) mmol/L Urine Color (YELLOW) Urine Clarity (Clear) Urine pH (5.0-8.0) Ur Specific [place] (1.003-1.030) Urine Protein (NEGATIVE) mg/dL Urine Glucose (UA) (Normal) mg/dL Urine Ketones (NEGATIVE) mg/dL Urine Blood (NEGATIVE) Urine Nitrate (NEGATIVE) Urine Bilirubin (NEGATIVE) Urine Urobilinogen (0.2-1.0) mg/dL Ur Leukocyte Esterase (Negative) [place]/uL Urine WBC (Auto) (0-5) /hpf Urine RBC (Auto) (0-3) /hpf Urine WBC Clumps (Auto) (NONE) /hpf Ur Squamous Epith Cells (0-5) /hpf Urine Bacteria (<OCC) Urine Eosinophils (NEGATIVE) Ur Random Sodium mmol/L 07/10/18 07/10/18 07/10/18 Range/Units 18:15 17:38 16:56 WBC (4.8-10.8) K/uL RBC (3.80-5.20) Mil/uL Hgb (11.0-16.0) g/dL Hct (34.0-47.0) % MCV (81.0-99.0) fL MCH (27.0-31.0) pg MCHC (33.0-37.0) g/dL RDW (11.5-14.5) % Plt Count (130-400) K/uL MPV (7.2-11.7) fL Neut % (Auto) (50.0-75.0) % Lymph % (Auto) (20.0-40.0) % [place] % (Auto) (0.0-10.0) % Eos % (Auto) (0.0-4.0) % Baso % (Auto) (0.0-2.0) % Neut # (Auto) (1.8-7.0) K/uL Lymph # (Auto) (1.0-4.3) K/uL [place] # (Auto) (0.0-0.8) K/uL Eos # (Auto) (0.0-0.7) K/uL Baso # (Auto) (0.0-0.2) K/uL ESR (0-20) mm/hr pO2 (30-55) mm/Hg VBG pH (7.32-7.43) VBG pCO2 (40-60) mmHg VBG HCO3 mmol/L VBG Total CO2 (22-28) mmol/L VBG O2 Sat (Calc) (40-65) % VBG Base Excess (0.0-2.0) mmol/L VBG Potassium (3.6-5.2) mmol/L Glucose (65-105) mg/dl Lactate (0.7-2.1) mmol/L Sodium (132-148) mmol/L Potassium (3.6-5.2) mmol/L Chloride (98-107) mmol/L Carbon Dioxide (22-30) mmol/L Anion Gap (10-20) BUN (7-17) mg/dL Creatinine (0.7-1.2) mg/dL Est GFR ( Amer) Est GFR (Non-Af Amer) Random Glucose (65-105) mg/dL Calcium (8.6-10.4) mg/dl Phosphorus (2.5-4.5) mg/dL Magnesium (1.6-2.3) mg/dL Total Bilirubin (0.2-1.3) mg/dL AST (14-36) U/L ALT (9-52) U/L Alkaline Phosphatase (38-126) U/L Ammonia (9-33) umol/L C-Reactive Protein (0.0-9.9) mg/L Total Protein (6.3-8.3) g/dL Albumin (3.5-5.0) g/dL Globulin (2.2-3.9) gm/dL Albumin/Globulin Ratio (1.0-2.1) Vitamin B12 (239-931) pg/mL Folate ng/mL Free T4 1.05 (0.78-2.19) ng/dL Free T3 pg/mL (2.77-5.27) pg/mL TSH 3rd Generation 42.50 H (0.46-4.68) mIU/L Prolactin (3.0-18.9) ng/mL Plasma Cortisol PM (1.7-14.1) ug/dL Venous Blood Potassium (3.6-5.2) mmol/L Urine Color Yellow (YELLOW) Urine Clarity Hazy (Clear) Urine pH 5.0 (5.0-8.0) Ur Specific [place] 1.014 (1.003-1.030) Urine Protein 1+ H (NEGATIVE) mg/dL Urine Glucose (UA) Normal (Normal) mg/dL Urine Ketones Negative (NEGATIVE) mg/dL Urine Blood Negative (NEGATIVE) Urine Nitrate Negative (NEGATIVE) Urine Bilirubin Negative (NEGATIVE) Urine Urobilinogen Normal (0.2-1.0) mg/dL Ur Leukocyte Esterase 3+ H (Negative) [place]/uL Urine WBC (Auto) 236 H (0-5) /hpf Urine RBC (Auto) 5 H (0-3) /hpf Urine WBC Clumps (Auto) Many H (NONE) /hpf Ur Squamous Epith Cells 7 H (0-5) /hpf Urine Bacteria Rare (<OCC) Urine Eosinophils (NEGATIVE) Ur Random Sodium mmol/L Laboratory Results - last 24 hr 07/10/18 07/10/18 07/10/18 16:56 17:38 18:15 WBC RBC Hgb Hct MCV MCH MCHC RDW Plt Count MPV Neut % (Auto) Lymph % (Auto) [place] % (Auto) Eos % (Auto) Baso % (Auto) Neut # (Auto) Lymph # (Auto) [place] # (Auto) Eos # (Auto) Baso # (Auto) ESR pO2 VBG pH VBG pCO2 VBG HCO3 VBG Total CO2 VBG O2 Sat (Calc) VBG Base Excess VBG Potassium Glucose Lactate Sodium Potassium Chloride Carbon Dioxide Anion Gap BUN Creatinine Est GFR ( Amer) Est GFR (Non-Af Amer) Random Glucose Calcium Phosphorus Magnesium Total Bilirubin AST ALT Alkaline Phosphatase Ammonia C-Reactive Protein Total Protein Albumin Globulin Albumin/Globulin Ratio Vitamin B12 Folate Free T4 1.05 Free T3 pg/mL TSH 3rd Generation 42.50 H Prolactin Plasma Cortisol PM Venous Blood Potassium Urine Color Yellow Urine Clarity Hazy Urine pH 5.0 Ur Specific [place] 1.014 Urine Protein 1+ H Urine Glucose (UA) Normal Urine Ketones Negative Urine Blood Negative Urine Nitrate Negative Urine Bilirubin Negative Urine Urobilinogen Normal Ur Leukocyte Esterase 3+ H Urine WBC (Auto) 236 H Urine RBC (Auto) 5 H Urine WBC Clumps (Auto) Many H Ur Squamous Epith Cells 7 H Urine Bacteria Rare Urine Eosinophils Ur Random Sodium 07/10/18 07/10/18 07/10/18 21:00 21:00 23:17 WBC RBC Hgb Hct MCV MCH MCHC RDW Plt Count MPV Neut % (Auto) Lymph % (Auto) [place] % (Auto) Eos % (Auto) Baso % (Auto) Neut # (Auto) Lymph # (Auto) [place] # (Auto) Eos # (Auto) Baso # (Auto) ESR pO2 57 H VBG pH 7.35 VBG pCO2 37 L VBG HCO3 21.0 VBG Total CO2 21.5 L VBG O2 Sat (Calc) 93.3 H VBG Base Excess -4.7 L VBG Potassium 4.5 Glucose 169 H Lactate 1.5 Sodium 134 138.0 Potassium 5.6 H Chloride 99 104.0 Carbon Dioxide 24 Anion Gap 17 BUN 61 H Creatinine 4.0 H Est GFR ( Amer) 13 Est GFR (Non-Af Amer) 11 Random Glucose 179 H D Calcium 8.4 L Phosphorus Magnesium Total Bilirubin 0.6 AST 22 ALT 12 Alkaline Phosphatase 66 Ammonia C-Reactive Protein Total Protein 6.8 Albumin 3.8 Globulin 3.0 Albumin/Globulin Ratio 1.3 Vitamin B12 Folate Free T4 Free T3 pg/mL 2.12 L TSH 3rd Generation Prolactin Plasma Cortisol PM 103 H Venous Blood Potassium 4.5 Urine Color Urine Clarity Urine pH Ur Specific [place] Urine Protein Urine Glucose (UA) Urine Ketones Urine Blood Urine Nitrate Urine Bilirubin Urine Urobilinogen Ur Leukocyte Esterase Urine WBC (Auto) Urine RBC (Auto) Urine WBC Clumps (Auto) Ur Squamous Epith Cells Urine Bacteria Urine Eosinophils Ur Random Sodium 07/11/18 07/11/18 07/11/18 06:26 06:26 06:26 WBC 10.1 RBC 3.65 L Hgb 11.4 Hct 34.4 MCV 94.4 MCH 31.2 H MCHC 33.1 RDW 13.7 Plt Count 180 MPV 9.8 Neut % (Auto) 84.0 H Lymph % (Auto) 12.5 L [place] % (Auto) 3.0 Eos % (Auto) 0.0 Baso % (Auto) 0.5 Neut # (Auto) 8.5 H Lymph # (Auto) 1.3 [place] # (Auto) 0.3 Eos # (Auto) 0.0 Baso # (Auto) 0.0 ESR 45 H pO2 VBG pH VBG pCO2 VBG HCO3 VBG Total CO2 VBG O2 Sat (Calc) VBG Base Excess VBG Potassium Glucose Lactate Sodium 136 Potassium 5.1 Chloride 103 Carbon Dioxide 22 Anion Gap 15 BUN 61 H Creatinine 3.3 H Est GFR ( Amer) 16 Est GFR (Non-Af Amer) 13 Random Glucose 177 H Calcium 8.4 L Phosphorus 6.0 H Magnesium 2.4 H Total Bilirubin 0.5 AST 21 ALT 14 Alkaline Phosphatase 64 Ammonia C-Reactive Protein 15.70 H Total Protein 6.6 Albumin 3.6 Globulin 3.0 Albumin/Globulin Ratio 1.2 Vitamin B12 704 Folate 5.9 Free T4 1.48 Free T3 pg/mL 1.97 L TSH 3rd Generation 9.45 H Prolactin 7.9 Plasma Cortisol PM Venous Blood Potassium Urine Color Urine Clarity Urine pH Ur Specific [place] Urine Protein Urine Glucose (UA) Urine Ketones Urine Blood Urine Nitrate Urine Bilirubin Urine Urobilinogen Ur Leukocyte Esterase Urine WBC (Auto) Urine RBC (Auto) Urine WBC Clumps (Auto) Ur Squamous Epith Cells Urine Bacteria Urine Eosinophils Ur Random Sodium 07/11/18 07/11/18 07/11/18 07:47 07:48 08:38 WBC RBC Hgb Hct MCV MCH MCHC RDW Plt Count MPV Neut % (Auto) Lymph % (Auto) [place] % (Auto) Eos % (Auto) Baso % (Auto) Neut # (Auto) Lymph # (Auto) [place] # (Auto) Eos # (Auto) Baso # (Auto) ESR pO2 VBG pH VBG pCO2 VBG HCO3 VBG Total CO2 VBG O2 Sat (Calc) VBG Base Excess VBG Potassium Glucose Lactate Sodium Potassium Chloride Carbon Dioxide Anion Gap BUN Creatinine Est GFR ( Amer) Est GFR (Non-Af Amer) Random Glucose Calcium Phosphorus Magnesium Total Bilirubin AST ALT Alkaline Phosphatase Ammonia < 9 L C-Reactive Protein Total Protein Albumin Globulin Albumin/Globulin Ratio Vitamin B12 Folate Free T4 Free T3 pg/mL TSH 3rd Generation Prolactin Plasma Cortisol PM Venous Blood Potassium Urine Color Urine Clarity Urine pH Ur Specific [place] Urine Protein Urine Glucose (UA) Urine Ketones Urine Blood Urine Nitrate Urine Bilirubin Urine Urobilinogen Ur Leukocyte Esterase Urine WBC (Auto) Urine RBC (Auto) Urine WBC Clumps (Auto) Ur Squamous Epith Cells Urine Bacteria Urine Eosinophils Negative Ur Random Sodium 9 Radiology Impressions: Radiology Impressions Chest X-Ray 07/10/18 16:50 IMPRESSION: No active disease. No acute/significant interval changes. Abdomen/Pelvis CT 07/10/18 17:34 IMPRESSION: Bilateral renal cortical atrophy. Kidneys appear diminutive bilaterally. No hydronephrosis or obstructing calculus evident. Atrophy of the pancreas 10 mm rounded nodule within the pancreatic body/tail junction, possibly representing residual normal pancreatic tissue the in the setting of atrophy. Pancreatic nodule or neoplasm cannot be entirely excluded. Follow-up as indicated. Moderate constipation. IVC filter. Cholecystectomy clips. Additional findings as above. Preliminary impression was provided by [facility]. Study marked for PA review. Head CT 07/10/18 17:35 IMPRESSION: No acute intracranial abnormality. Again identified is asymmetric soft tissue appearance of the left intrasellar region abutting the cavernous sinus. This of uncertain clinical etiology. Cannot exclude intrasellar lesion such as an adenoma, meningioma, aneurysm, and or additional etiology. Further evaluation with MRI may be helpful if clinically indicated. Chronic microvascular ischemic changes. Additional findings as above. A preliminary report was generated at 7:18 p.m. on 07/10/[address] Tip Ramirez from [facility]. This case was placed in the PA review folder. Spleen Ultrasound 07/10/18 21:23 Impression: Mild increased echogenicity of the bilateral renal parenchymal cortices suggestive for medical renal disease. Clinical correlation. A preliminary report was generated 11:02 p.m. on 07/10/[address] Helio Reaves from [facility]. EKG/Cardiology Studies: Cardiology / EKG Studies 07/10/18 16:44 EKG [ELECTROCARDIOGRAM] Stat Comment: Mode Of Transportation: BED Reason For Exam: cp 07/10/18 16:50 ELECTROCARDIOGRAM Stat Comment: Mode Of Transportation: BED Reason For Exam: chest pain 07/10/18 17:05 EKG [ELECTROCARDIOGRAM] Stat Comment: Mode Of Transportation: BED Reason For Exam: cp Critical Care Progress Note - Nutrition Nutrition: Nutrition Category Date Time Status NPO Diet [DIET] Diets 07/10/18 Dinner Active Attending/Attestation - Attestation I have personally seen and examined this patient.: Yes I have fully participated in the care of the patient.: Yes I have reviewed all pertinent clinical information: Yes Notes (Text): 07/11/18 17:40 Patient seen and examined in the intensive care unit. Case discussed with housestaff in the morning rounds. Patient is much more awake Off dopamine and heart rate in the 80s Continue levothyroxine Continue hydrocortisone Gentle hydration Follow-up renal function
[2018-07-11 07:47] LABS: FOLATE 5.9 ng/mL
--- NOTE | 2018-07-11 08:35 | US ---
Renal ultrasound History: Hydronephrosis. COMPARISON: CT scan dated 07/10/2018 Technique: Real-time sonography was performed through the kidneys. Findings: Right kidney: 8.9 x 3.7 x 4.1 centimeters. Mild increased echogenicity of the renal parenchymal cortex suggestive for medical renal disease. No calculi or hydronephrosis. Atherosclerotic calcification and plaque in the aorta. Aorta otherwise grossly preserved. Left kidney: 9.1 x 4.7 x 5.8 centimeters. Mild increased echogenicity of the renal parenchymal cortex suggestive for medical renal disease. No calculi or hydronephrosis. Visualized spleen appears somewhat diminutive measuring up to 7.8 centimeters but otherwise grossly preserved. There may be a few internal splenic calcifications. Visualized urinary bladder appears grossly preserved. Impression: Mild increased echogenicity of the bilateral renal parenchymal cortices suggestive for medical renal disease. Clinical correlation. A preliminary report was generated 11:02 p.m. on 07/10/[address] Helio Reaves from [facility].
[2018-07-11] MEDS ORDERED: Levothyroxine 200 mcg (0.2 mg) Inj IVP SCH (10:00)
[2018-07-11] MEDS ORDERED: Levothyroxine 500 mcg (0.5 mg) Inj IV SCH (10:00)
--- NOTE | 2018-07-11 10:54 | CT ---
PROCEDURE: CT Abdomen and Pelvis without Oral or IV contrast. HISTORY: renal failure COMPARISON: CT chest and abdomen without IV contrast performed 05/29/18 and renal spleen ultrasound performed 07/10/18 TECHNIQUE: Contiguous axial images of the abdomen and pelvis. No oral or IV contrast administered. Coronal and Sagittal reformats generated and reviewed. Radiation dose: Total exam DLP = 1258.09 mGy-cm. This CT exam was performed using one or more of the following dose reduction techniques: Automated exposure control, adjustment of the mA and/or kV according to patient size, and/or use of iterative reconstruction technique. FINDINGS: There is limited evaluation of the solid organs without the administration of IV contrast. LOWER THORAX: Bibasilar atelectasis. No visible pleural effusion or pneumothorax. LIVER: Unremarkable unenhanced appearance. GALLBLADDER AND BILE DUCTS: Cholecystectomy. PANCREAS: Atrophy of the pancreas 10 mm rounded nodule within the pancreatic body/tail junction (series 3, image 73), possibly representing residual normal pancreatic tissue the in the setting of atrophy. Pancreatic nodule or neoplasm cannot be entirely excluded. SPLEEN: Diminutive spleen. ADRENALS: Unremarkable. KIDNEYS AND URETERS: No hydronephrosis or obstructing renal calculus. Bilateral kidneys appear diminutive with cortical atrophy. BLADDER: The urinary bladder appears unremarkable. REPRODUCTIVE: Uterus is absent presumably due to hysterectomy. APPENDIX: The appendix is not identified. No secondary signs of acute appendicitis. BOWEL: The stomach is nondistended. Lack of oral contrast limits evaluation for bowel pathology. The bowel loops appear within normal limits of caliber without evidence of intestinal obstruction. PERITONEUM: Moderate diffuse constipation. No significant free fluid. No definite free air. LYMPH NODES: No bulky lymphadenopathy identified. VASCULATURE: Dense atherosclerotic calcifications of the aorta and branches. No aortic aneurysm. BONES: Multilevel degenerative changes. Osseous demineralization. Mild retrolisthesis of L1 on L2. OTHER FINDINGS: None. IMPRESSION: Bilateral renal cortical atrophy. Kidneys appear diminutive bilaterally. No hydronephrosis or obstructing calculus evident. Atrophy of the pancreas 10 mm rounded nodule within the pancreatic body/tail junction, possibly representing residual normal pancreatic tissue the in the setting of atrophy. Pancreatic nodule or neoplasm cannot be entirely excluded. Follow-up as indicated. Moderate constipation. IVC filter. Cholecystectomy clips. Additional findings as above. Preliminary impression was provided by [facility]. Study marked for PA review.
[2018-07-11] MEDS: Levothyroxine 100 mcg (0.1 mg) Inj IVP SCH (12:07)
--- NOTE | 2018-07-11 13:17 | CP.PCM.CON ---
History of Present Illness - History of Present Illness History of Present Illness: renal consult for hyperkalemia and KETTY 88 yo NHR with dementia, PE, DVT, IVC filter, osteoarthritis, transferred from [place] for altered mental status in the setting of bradycardia, KETTY and hyperkalemia. Pt put on dopamine with improvement in heart rate. Received medical management of hyperkalemia. Today, improving creatinine and K, u/o 700 cc. Pt is awake, but is not oriented and unable to provide history. Unclear what outpatient medicines she is on. Head CT is negative for acute event. Review of Systems - Review of Systems Systems not reviewed;Unavailable: Dementia Past Patient History - Past Medical History & Family History Past Medical History?: Yes - Past Social History Smoking Status: Never Smoked - CARDIAC Hx Hypertension: Yes - PULMONARY Hx Sleep Apnea: Yes - ENDOCRINE/METABOLIC Hx Hypothyroidism: Yes (W/ MEDS) - INTEGUMENTARY Other/Comment: multiple bruises over body - MUSCULOSKELETAL/RHEUMATOLOGICAL Hx Arthritis: Yes (KNEE, BACK) - PSYCHIATRIC Hx Substance Use: No - SURGICAL HISTORY Hx Surgeries: No - ANESTHESIA Hx Anesthesia: No Meds Allergies/Adverse Reactions: Allergies Allergy/AdvReac Type Severity Reaction Status Date / Time erythromycin base Allergy Verified 03/27/17 20:35 Sulfa (Sulfonamide Allergy Verified 07/24/17 13:31 Antibiotics) - Medications Medications: Current Medications Albuterol/Ipratropium (Duoneb 3 Mg/0.5 Mg (3 Ml) Ud) 3 ml INH RQ6 [facility] Last Admin: 07/11/18 07:41 Dose: 3 ml Famotidine (Pepcid) 20 mg PO DAILY [facility] Last Admin: 07/11/18 10:06 Dose: 20 mg Heparin Sodium (Porcine) (Heparin) 5,000 units SC Q8 [facility] Last Admin: 07/11/18 07:00 Dose: 5,000 units Hydrocortisone Sodium Succinate (Solu-Cortef) 50 mg IV Q12 [facility] Last Admin: 07/11/18 10:05 Dose: 50 mg Dopamine HCl/Dextrose (Dopamine 400mg/250ml D5w) 400 mg in 250 mls @ 36.375 mls/hr IV .Q6H53M PRN; Protocol PRN Reason: TITRATE PER MD ORDER Last Titration: 07/11/18 04:00 Dose: 0 mcg/kg/min, 0 mls/hr Dextrose/Sodium Chloride (Dextrose 5%/0.9% Ns 1000 Ml) 1,000 mls @ 125 mls/hr IV .Q8H [facility] Last Admin: 07/11/18 10:17 Dose: 125 mls/hr Levothyroxine Sodium (Synthroid) 100 mcg IVP DAILY [facility] Last Admin: 07/11/18 12:07 Dose: 100 mcg Rosuvastatin Calcium (Crestor) 2.5 mg PO HS [facility] Last Admin: 07/10/18 22:50 Dose: 2.5 mg Physical Exam - Constitutional Appears: In Acute Distress, Confused, Chronically Ill - Head Exam Head Exam: ATRAUMATIC, NORMAL INSPECTION Additional comments: NGT in - ENT Exam ENT Exam: Mucous Membranes Moist - Neck Exam Neck exam: Positive for: Full Rom. Negative for: Lymphadenopathy - Respiratory Exam Respiratory Exam: Decreased Breath Sounds. absent: Rhonchi - Cardiovascular Exam Cardiovascular Exam: REGULAR RHYTHM. absent: Rubs - GI/Abdominal Exam GI & Abdominal Exam: Distended. absent: Firm, Guarding - Extremities Exam Extremities exam: Negative for: pedal edema - Neurological Exam Neurological exam: Alert Results - Vital Signs Recent Vital Signs: Last Vital Signs Temp 98.6 F 07/11/18 08:00 Pulse 93 H 07/11/18 08:00 Resp 22 07/11/18 08:00 BP 143/56 L 07/11/18 07:57 Pulse Ox 100 07/11/18 08:00 - Labs Result Diagrams: 07/11/18 06:26 07/11/18 06:26 Labs: Laboratory Results - last 24 hr 07/10/18 07/10/18 07/10/18 16:56 16:56 16:56 WBC 8.0 RBC 3.74 L Hgb 11.4 Hct 35.7 MCV 95.3 D MCH 30.5 MCHC 32.0 L RDW 14.2 Plt Count 168 MPV 9.9 Neut % (Auto) 75.2 H Lymph % (Auto) 18.9 L [place] % (Auto) 4.8 Eos % (Auto) 0.5 Baso % (Auto) 0.6 Neut # (Auto) 6.0 Lymph # (Auto) 1.5 [place] # (Auto) 0.4 Eos # (Auto) 0.0 Baso # (Auto) 0.1 ESR PT 17.0 H INR 1.6 APTT 31 pO2 VBG pH VBG pCO2 VBG HCO3 VBG Total CO2 VBG O2 Sat (Calc) VBG Base Excess VBG Potassium Glucose Lactate Crit Value Called To Crit Value Called By Crit Value Read Back Blood Gas Notified Time Sodium 135 Potassium 6.6 H* D Chloride 100 Carbon Dioxide 23 Anion Gap 19 BUN 63 H Creatinine 4.2 H Est GFR ( Amer) 12 Est GFR (Non-Af Amer) 10 Random Glucose 146 H D Calcium 8.2 L Phosphorus Magnesium Total Bilirubin 0.5 AST 22 ALT 14 Alkaline Phosphatase 67 Ammonia Troponin I 0.0440 C-Reactive Protein Total Protein 6.8 Albumin 3.9 Globulin 2.9 Albumin/Globulin Ratio 1.3 Vitamin B12 Folate Free T4 Free T3 pg/mL TSH 3rd Generation 42.50 H Plasma Cortisol PM Venous Blood Potassium Urine Color Urine Clarity Urine pH Ur Specific [place] Urine Protein Urine Glucose (UA) Urine Ketones Urine Blood Urine Nitrate Urine Bilirubin Urine Urobilinogen Ur Leukocyte Esterase Urine WBC (Auto) Urine RBC (Auto) Urine WBC Clumps (Auto) Ur Squamous Epith Cells Urine Bacteria Urine Eosinophils Ur Random Sodium 07/10/18 07/10/18 07/10/18 17:16 17:38 18:15 WBC RBC Hgb Hct MCV MCH MCHC RDW Plt Count MPV Neut % (Auto) Lymph % (Auto) [place] % (Auto) Eos % (Auto) Baso % (Auto) Neut # (Auto) Lymph # (Auto) [place] # (Auto) Eos # (Auto) Baso # (Auto) ESR PT INR APTT pO2 26 L VBG pH 7.30 L VBG pCO2 51 VBG HCO3 21.8 VBG Total CO2 26.7 VBG O2 Sat (Calc) 40.3 VBG Base Excess -2.0 L VBG Potassium 6.6 H* Glucose 150 H Lactate 2.1 Crit Value Called To Dr cuevas Crit Value Called By Pradeep meek Crit Value Read Back Y Blood Gas Notified Time 1719 Sodium 134.0 Potassium Chloride 101.0 Carbon Dioxide Anion Gap BUN Creatinine Est GFR ( Amer) Est GFR (Non-Af Amer) Random Glucose Calcium Phosphorus Magnesium Total Bilirubin AST ALT Alkaline Phosphatase Ammonia Troponin I C-Reactive Protein Total Protein Albumin Globulin Albumin/Globulin Ratio Vitamin B12 Folate Free T4 1.05 Free T3 pg/mL TSH 3rd Generation Plasma Cortisol PM Venous Blood Potassium 6.6 H* Urine Color Yellow Urine Clarity Hazy Urine pH 5.0 Ur Specific [place] 1.014 Urine Protein 1+ H Urine Glucose (UA) Normal Urine Ketones Negative Urine Blood Negative Urine Nitrate Negative Urine Bilirubin Negative Urine Urobilinogen Normal Ur Leukocyte Esterase 3+ H Urine WBC (Auto) 236 H Urine RBC (Auto) 5 H Urine WBC Clumps (Auto) Many H Ur Squamous Epith Cells 7 H Urine Bacteria Rare Urine Eosinophils Ur Random Sodium 07/10/18 07/10/18 07/10/18 21:00 21:00 23:17 WBC RBC Hgb Hct MCV MCH MCHC RDW Plt Count MPV Neut % (Auto) Lymph % (Auto) [place] % (Auto) Eos % (Auto) Baso % (Auto) Neut # (Auto) Lymph # (Auto) [place] # (Auto) Eos # (Auto) Baso # (Auto) ESR PT INR APTT pO2 57 H VBG pH 7.35 VBG pCO2 37 L VBG HCO3 21.0 VBG Total CO2 21.5 L VBG O2 Sat (Calc) 93.3 H VBG Base Excess -4.7 L VBG Potassium 4.5 Glucose 169 H Lactate 1.5 Crit Value Called To Crit Value Called By Crit Value Read Back Blood Gas Notified Time Sodium 134 138.0 Potassium 5.6 H Chloride 99 104.0 Carbon Dioxide 24 Anion Gap 17 BUN 61 H Creatinine 4.0 H Est GFR ( Amer) 13 Est GFR (Non-Af Amer) 11 Random Glucose 179 H D Calcium 8.4 L Phosphorus Magnesium Total Bilirubin 0.6 AST 22 ALT 12 Alkaline Phosphatase 66 Ammonia Troponin I C-Reactive Protein Total Protein 6.8 Albumin 3.8 Globulin 3.0 Albumin/Globulin Ratio 1.3 Vitamin B12 Folate Free T4 Free T3 pg/mL 2.12 L TSH 3rd Generation Plasma Cortisol PM 103 H Venous Blood Potassium 4.5 Urine Color Urine Clarity Urine pH Ur Specific [place] Urine Protein Urine Glucose (UA) Urine Ketones Urine Blood Urine Nitrate Urine Bilirubin Urine Urobilinogen Ur Leukocyte Esterase Urine WBC (Auto) Urine RBC (Auto) Urine WBC Clumps (Auto) Ur Squamous Epith Cells Urine Bacteria Urine Eosinophils Ur Random Sodium 07/11/18 07/11/18 07/11/18 06:26 06:26 06:26 WBC 10.1 RBC 3.65 L Hgb 11.4 Hct 34.4 MCV 94.4 MCH 31.2 H MCHC 33.1 RDW 13.7 Plt Count 180 MPV 9.8 Neut % (Auto) 84.0 H Lymph % (Auto) 12.5 L [place] % (Auto) 3.0 Eos % (Auto) 0.0 Baso % (Auto) 0.5 Neut # (Auto) 8.5 H Lymph # (Auto) 1.3 [place] # (Auto) 0.3 Eos # (Auto) 0.0 Baso # (Auto) 0.0 ESR 45 H PT INR APTT pO2 VBG pH VBG pCO2 VBG HCO3 VBG Total CO2 VBG O2 Sat (Calc) VBG Base Excess VBG Potassium Glucose Lactate Crit Value Called To Crit Value Called By Crit Value Read Back Blood Gas Notified Time Sodium 136 Potassium 5.1 Chloride 103 Carbon Dioxide 22 Anion Gap 15 BUN 61 H Creatinine 3.3 H Est GFR ( Amer) 16 Est GFR (Non-Af Amer) 13 Random Glucose 177 H Calcium 8.4 L Phosphorus 6.0 H Magnesium 2.4 H Total Bilirubin 0.5 AST 21 ALT 14 Alkaline Phosphatase 64 Ammonia Troponin I C-Reactive Protein 15.70 H Total Protein 6.6 Albumin 3.6 Globulin 3.0 Albumin/Globulin Ratio 1.2 Vitamin B12 704 Folate 5.9 Free T4 1.48 Free T3 pg/mL 1.97 L TSH 3rd Generation 9.45 H Plasma Cortisol PM Venous Blood Potassium Urine Color Urine Clarity Urine pH Ur Specific [place] Urine Protein Urine Glucose (UA) Urine Ketones Urine Blood Urine Nitrate Urine Bilirubin Urine Urobilinogen Ur Leukocyte Esterase Urine WBC (Auto) Urine RBC (Auto) Urine WBC Clumps (Auto) Ur Squamous Epith Cells Urine Bacteria Urine Eosinophils Ur Random Sodium 07/11/18 07/11/18 07/11/18 07:47 07:48 08:38 WBC RBC Hgb Hct MCV MCH MCHC RDW Plt Count MPV Neut % (Auto) Lymph % (Auto) [place] % (Auto) Eos % (Auto) Baso % (Auto) Neut # (Auto) Lymph # (Auto) [place] # (Auto) Eos # (Auto) Baso # (Auto) ESR PT INR APTT pO2 VBG pH VBG pCO2 VBG HCO3 VBG Total CO2 VBG O2 Sat (Calc) VBG Base Excess VBG Potassium Glucose Lactate Crit Value Called To Crit Value Called By Crit Value Read Back Blood Gas Notified Time Sodium Potassium Chloride Carbon Dioxide Anion Gap BUN Creatinine Est GFR ( Amer) Est GFR (Non-Af Amer) Random Glucose Calcium Phosphorus Magnesium Total Bilirubin AST ALT Alkaline Phosphatase Ammonia < 9 L Troponin I C-Reactive Protein Total Protein Albumin Globulin Albumin/Globulin Ratio Vitamin B12 Folate Free T4 Free T3 pg/mL TSH 3rd Generation Plasma Cortisol PM Venous Blood Potassium Urine Color Urine Clarity Urine pH Ur Specific [place] Urine Protein Urine Glucose (UA) Urine Ketones Urine Blood Urine Nitrate Urine Bilirubin Urine Urobilinogen Ur Leukocyte Esterase Urine WBC (Auto) Urine RBC (Auto) Urine WBC Clumps (Auto) Ur Squamous Epith Cells Urine Bacteria Urine Eosinophils Negative Ur Random Sodium 9 Assessment & Plan - Assessment and Plan (Free Text) Assessment: KETTY and hyperkalemia, improving with better heart rate and BP gentle ivf urine analysis needs cardiac and neuro w/u faith culture trend labs avoid nephrotoxic agents
[2018-07-11 15:15] LABS: PROLACTIN 7.9 ng/mL (3.0-18.9)
[2018-07-11] MEDS: Benzocaine/Menthol (Cepacol) Lozenge MT PRN (20:10)
--- NOTE | 2018-07-11 21:00 | CON ---
DATE: 07/11/2018 ATTENDING PHYSICIAN: Marvin Herrera MD LOCATION: ICU Bed 14A. REASON FOR CONSULTATION: Change in mental status. CHIEF COMPLAINT: The patient was brought in from the halfway with a history of change in mental status. From neurological point of view, I was called in to evaluate her for further management. HISTORY OF PRESENTING ILLNESS: Ms. Myers is an 88-year-old moderately obese right-handed female brought into [facility] as per the family member (daughter), she was found confused. On arrival to the emergency room, the patient found to have severe bradycardia. Atropine was given and also found to have high TSH level and hyperkalemia. The patient was given Kayexalate and thyroxine was given to stabilize her mentation and medical problem. The patient woke up around 3 o'clock and she seems to be comprehended ever since. No history of fall. No history of trauma. No history of involuntary movements. No history of bowel and bladder incontinence. No similar episodes happened in the past. PAST MEDICAL HISTORY: Significant to hypertension, hypothyroidism, chronic constipation, urinary tract infection, DVT, status post stent placement and been on Eliquis at present. MEDICATION AT HOME: She has been on Microzide, Tylenol, lisinopril, lactulose, cough syrup, apixaban, Synthroid, gabapentin, tramadol, Xanax and metoprolol. REVIEW OF SYSTEM: A 12-point system being reviewed. From neuro, change in mental status. PHYSICAL EXAMINATION: VITAL SIGNS: Blood pressure 133/64 with a mean artery pressure of 87, pulse rate 76, irregular. NECK: Supple. No meningismus. No carotid bruits. HEART: Sounds irregular. CHEST: Fair air entry. EXTREMITIES: Trace edema in legs, both sides. NEUROLOGIC: Mental status examination, she is awake, alert, oriented to person and place. She does not know the place but she knows she is in the hospital. Speech at times fluent and sometime it is mumbling which is could not be able to be understandable. Significant right and left confusion. She follows one-step command. Cranial nerve examination, respond to visual threat. Pupil reactive to light. Extraocular movement markedly decreased in all direction. No facial sensory deficit. No facial asymmetry. Hearing is normal. Tongue is midline. Good gag. Motor examination, the patient does show this partial tremor on lifting her arms on both sides. No asterixis. Tone is increased in both upper and lower extremities. Deep tendon reflexes are absent. Plantars are upgoing on both sides. Significant weakness noted, both lower extremities and upper extremity, is probably a preexisting condition. Sensory examination, significant bilateral distal symmetric sensorimotor neuropathy. No posterior column involved. Coordination, she is hard to follow finger-nose testing. CONCLUSION: On reviewing her history from the medical records as well as gathered from her and as per my neurological examination, the patient does have bilateral cerebral dysfunction which is probably triggered by her hypoperfusion, hypothyroidism and hyperkalemia. RECOMMENDATIONS: 1. CT of the head which was reviewed by me. Definitely, the patient did need MRI of the brain to rule out any acute process. 2. MRI/EEG to rule out any seizure activities or focal slowing or encephalopathy finding such as triphasic waves. 3. Blood workup as per the order. 4. Out of bed and physical therapy should be initiated. I doubt the patient has any infectious source to change her mental status at present. The patient will be followed closely with you. Phil Short MD
--- NOTE | 2018-07-11 21:14 | CP.PCM.PN ---
Subjective - Date & Time of Evaluation Date of Evaluation: 07/11/18 Time of Evaluation: 21:12 - Subjective Subjective: Patient is now more awake and responding. 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 Complaining of throat pain. Patient NG tube was removed already On examination: Vital signs stable. 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 Patient now is more awake and moving all 4 extremities Labs reviewed Improving renal function, improving potassium level. Assessment and recommendation: 88-year-old female admitted with altered mental status, acute renal insufficiency. The cause is unclear. Most likely dehydration. Infection less likely. We will continue to monitor and will follow the patient. Physical therapy out of bed to chair Discontinue Awad catheter. Transfer to floor Objective - Vital Signs/Intake and Output Vital Signs (last 24 hours): Temp Pulse Resp BP Pulse Ox 98.3 F 87 16 113/31 L 98 07/11/18 16:00 07/11/18 18:58 07/11/18 18:58 07/11/18 18:58 07/11/18 18:58 Intake and Output: 07/11/18 07/12/18 18:59 06:59 Intake Total 1275 Output Total 480 Balance 795 - Medications Medications: Current Medications Albuterol/Ipratropium (Duoneb 3 Mg/0.5 Mg (3 Ml) Ud) 3 ml INH RQ6 [facility] Last Admin: 07/11/18 20:04 Dose: 3 ml Alprazolam (Xanax) 0.25 mg PO BID [facility] Benzocaine/Menthol (Cepacol Sore Throat) 1 melinda MT TID PRN PRN Reason: Sore Throat Last Admin: 07/11/18 20:10 Dose: 1 melinda Famotidine (Pepcid) 20 mg PO DAILY [facility] Last Admin: 07/11/18 10:06 Dose: 20 mg Heparin Sodium (Porcine) (Heparin) 5,000 units SC Q8 [facility] Last Admin: 07/11/18 14:33 Dose: 5,000 units Hydrocortisone Sodium Succinate (Solu-Cortef) 50 mg IV Q12 [facility] Last Admin: 07/11/18 10:05 Dose: 50 mg Dextrose/Sodium Chloride (Dextrose 5%/0.9% Ns 1000 Ml) 1,000 mls @ 75 mls/hr IV .[id number] [facility] Last Admin: 07/11/18 20:10 Dose: 75 mls/hr Levothyroxine Sodium (Synthroid) 100 mcg IVP DAILY [facility] Last Admin: 07/11/18 12:07 Dose: 100 mcg Rosuvastatin Calcium (Crestor) 2.5 mg PO HS [facility] Last Admin: 07/10/18 22:50 Dose: 2.5 mg - Labs Labs: 07/11/18 06:26 07/11/18 06:26 PT 17.0 SECONDS (9.7-12.2) H 07/10/18 16:56 INR 1.6 07/10/18 16:56 APTT 31 SECONDS (21-34) 07/10/18 16:56
[2018-07-11] MEDS: Rosuvastatin Calcium 2.5 mg Tab PO SCH (22:34)
[2018-07-12] MEDS: Albuterol-Ipratrop 3 mg / 0.5 (3 ml) UD INH SCH ×3 (02:18→14:11)
[2018-07-12 06:22] LABS: BASO % 0.3 % (0.0-2.0); EOS % 0.3 % (0.0-4.0); LYMPH # 1.7 K/uL (1.0-4.3); LYMPH % 22.2 % (20.0-40.0); MEAN CORPUSCULAR HEMOGLOBIN 31.2 pg (27.0-31.0); MEAN PLATELET VOLUME 10.3 fL (7.2-11.7); MONO # 0.5 K/uL (0.0-0.8); MONO % 6.3 % (0.0-10.0); NEUT # 5.4 K/uL (1.8-7.0); NEUT % 70.9 % (50.0-75.0); RBC 2.59 Mil/uL (3.80-5.20); RED CELL DISTRIBUTION WIDTH 14.6 % (11.5-14.5); WHITE BLOOD COUNT 7.7 K/uL (4.8-10.8)
[2018-07-12 06:30] LABS: ALB/GLOB RATIO 1.2 (1.0-2.1); ALBUMIN 2.8 g/dL (3.5-5.0); CALCIUM 7.2 mg/dl (8.6-10.4)
[2018-07-12 06:35] LABS: MEAN CELL VOLUME 97.4 fL (81.0-99.0)
[2018-07-12 06:37] LABS: HEMOGLOBIN 8.1 g/dL (11.0-16.0)
[2018-07-12] MEDS: Benzocaine/Menthol (Cepacol) Lozenge MT PRN ×2 (09:00→20:44)
--- NOTE | 2018-07-12 09:22 | CP.PCM.PN ---
Subjective - Date & Time of Evaluation Date of Evaluation: 07/12/18 Time of Evaluation: 09:19 - Subjective Subjective: still tremulous, not verbal now AU=[id number]; KETTY resolving K low- to be repleted for neuro imaging HR stabilized Objective - Vital Signs/Intake and Output Vital Signs (last 24 hours): Temp Pulse Resp BP Pulse Ox 98.2 F 82 32 H 130/48 L 96 07/12/18 04:00 07/12/18 07:38 07/12/18 07:38 07/12/18 07:38 07/12/18 07:38 Intake and Output: 07/12/18 07/12/18 06:59 18:59 Intake Total 900 150 Output Total 740 0 Balance 160 150 - Medications Medications: Current Medications Albuterol/Ipratropium (Duoneb 3 Mg/0.5 Mg (3 Ml) Ud) 3 ml INH RQ6 [facility] Last Admin: 07/12/18 08:05 Dose: 3 ml Alprazolam (Xanax) 0.25 mg PO BID [facility] Benzocaine/Menthol (Cepacol Sore Throat) 1 mel[place] MT TID PRN PRN Reason: Sore Throat Last Admin: 07/11/18 20:10 Dose: 1 melinda Famotidine (Pepcid) 20 mg PO DAILY [facility] Last Admin: 07/11/18 10:06 Dose: 20 mg Heparin Sodium (Porcine) (Heparin) 5,000 units SC Q8 [facility] Last Admin: 07/12/18 05:07 Dose: 5,000 units Dextrose/Sodium Chloride (Dextrose 5%/0.9% Ns 1000 Ml) 1,000 mls @ 75 mls/hr IV .[id number] [facility] Last Admin: 07/11/18 20:10 Dose: 75 mls/hr Levothyroxine Sodium (Synthroid) 100 mcg IVP DAILY [facility] Last Admin: 07/11/18 12:07 Dose: 100 mcg Lidocaine HCl (Lidocaine 2% Viscous) 15 ml PO TID PRN PRN Reason: pain Last Admin: 07/11/18 22:26 Dose: 15 ml Rosuvastatin Calcium (Crestor) 2.5 mg PO HS [facility] Last Admin: 07/11/18 22:34 Dose: 2.5 mg - Labs Labs: 07/12/18 06:09 07/12/18 06:10 PT 17.0 SECONDS (9.7-12.2) H 07/10/18 16:56 INR 1.6 07/10/18 16:56 APTT 31 SECONDS (21-34) 07/10/18 16:56 - Constitutional Appears: No Acute Distress, Chronically Ill - Head Exam Head Exam: ATRAUMATIC, NORMAL INSPECTION - Eye Exam Eye Exam: EOMI, Normal appearance - Respiratory Exam Respiratory Exam: Clear to Ausculation Bilateral, NORMAL BREATHING PATTERN - Cardiovascular Exam Cardiovascular Exam: REGULAR RHYTHM, +S1 - GI/Abdominal Exam GI & Abdominal Exam: Soft. absent: Tenderness - Extremities Exam Extremities Exam: Normal Inspection. absent: Tenderness - Neurological Exam Neurological Exam: Altered - Skin Skin Exam: Dry, Warm Assessment and Plan (1) KETTY (acute kidney injury) Status: Acute (2) Hypokalemia Status: Acute (3) Fall Status: Acute - Assessment and Plan (Free Text) Plan: replete K neuro workup follow up chemistries
--- NOTE | 2018-07-12 10:20 | PN ---
DATE: 07/12/2018 TIME OF EVALUATION: 07:15 a.m. NEUROLOGICAL PROBLEM: Change in mental status. PHYSICAL EXAMINATION: VITAL SIGNS: Blood pressure 142/44, mean artery pressure of 76, respiratory rate 24-28, pulse rate 86 sinus. Temperature 98.2. GENERAL: The patient is drowsy, easily arousable. She knows she is in the hospital, communicable. No right and left confusion. She moves both upper extremities as per the command. Cranial nerve examination is normal. Rest of the examination which is unchanged to compared with the previous examination. WORKUP: Random glucose 318, potassium is 3.1. Further recommended workup is still pending. From neurological point of view, the patient is stable at present. Phil Short MD
[2018-07-12] MEDS: Levothyroxine 100 mcg (0.1 mg) Inj IVP SCH (11:38)
--- NOTE | 2018-07-12 11:39 | CARD ---
APPROVED REPORT Date of service: 07/11/2018 EXAM: Two-dimensional and M-mode echocardiogram with Doppler and color Doppler. INDICATION Dizziness and Vertigo Atrial Fibrillation RISK FACTORS Hypertension 2D DIMENSIONS IVSd1.0 (0.7-1.1cm)LVDd3.9 (3.9-5.9cm) LVOT Diameter1.8 (1.8-2.4cm)PWd1.0 (0.7-1.1cm) LA [place]44 (18-58mL)LVDs2.6 (2.5-4.0cm) FS (%) 33.3 %LVEF (%)62.7 (>50%) LVEF (Mc[place]ur's)78.22 % M-Mode DIMENSIONS Left Atrium (MM)4.14 (2.5-4.0cm)IVSd0.82 (0.7-1.1cm) Aortic Root2.94 (2.2-3.7cm)LVDd4.80 (4.0-5.6cm) Aortic Cusp Exc.1.29 (1.5-2.0cm)PWd0.57 (0.7-1.1cm) FS (%) 33 %LVDs3.21 (2.0-3.8cm) LVEF (%)61 (>50%) Aortic Valve AoV Peak Synhllsw901.2cm/sAoV VTI46.1cmAO Peak GR.24mmHg LVOT Peak Ektsphov047.8cm/sLVOT VTI30.92cmAO Mean GR.14mmHg ASHWIN (VMAX)1.22yq0BVG (VTI)1.66cm2 Mitral Valve MV E Wmrsunqu957.2cm/sMV A Vlbgzlay567.0cm/sE/A ratio1.0 MVA (Planimetry)1.61cm2 TDI Lateral E' Peak V7.77cm/sMedial E' Peak V7.06cm/sE/Lateral E'13.4 E/Medial E'14.8 Tricuspid Valve TR Peak Bgmegxhn676gd/sTR Peak Gr.80pwZqEMSI22mpQd <Conclusion> normal size lv,ra & rv. la is mildly dilated. normal lv wall motion,thickness.systolic & diastolic function with lvef of more than 70%. calcific trileaflet aortic valve with mild as.peak/mean gradient of 24/11 mm of hg. normal mitral,tv & pv.mild tr with calculated pulmonary systolic pressures of 54 mm of hg,moderate pulmonary htn. normal size aortic root. no pericardial effusion.
--- NOTE | 2018-07-12 16:19 | MRI ---
Date of service: 07/12/2018 PROCEDURE: MRI BRAIN WITHOUT CONTRAST HISTORY: encephalopathy - IC PATHOLOGY STROKE/DEGEN COMPARISON: Noncontrast head CT 07/10/2018. TECHNIQUE: Multiplanar, multisequence MR images of the brain were obtained without intravenous contrast enhancement. FINDINGS: Limitations: Extensive motion artifacts. HEMORRHAGE: None DWI: No evidence of an acute or early subacute infarction. BRAIN PARENCHYMA: Good corticomedullary differentiation is seen. Proportional, diffuse expansion of the ventriculosulcal and cisternal spaces is appreciated with white matter signal abnormalities compatible with diffuse cerebral atrophy and chronic microangiopathy. No suspicious extra-axial fluid collection is identified and the midline brain anatomy appears grossly nonfocal as imaged. There is no mass effect throughout. No suspicious findings at the sella or suprasellar cistern. VENTRICLES: Unremarkable. No hydrocephalus. CRANIUM: Unremarkable. ORBITS: Grossly unremarkable. PARANASAL SINUSES/MASTOIDS: Clear VASCULAR SYSTEM: Skull base flow voids intact. OTHER FINDINGS: None. IMPRESSION: Age-related neuro degenerative changes are identified without acute brain infarction, mass effect or definitive intracranial hemorrhage identified. Motion artifacts limit this exam somewhat. Overall evaluation is not significantly changed in the interval compared prior CT 07/10/2018. Possibility of pituitary adenoma or other sella/parasellar lesion extending to the left cavernous sinus is not completely excluded based on CT appearance alone. Follow-up pituitary MRI is recommended electively for added characterization of the sella and parasellar space given its somewhat unusual CT appearance.
[2018-07-12 17:31] LABS: HEMOGLOBIN 9.7 g/dL (11.0-16.0); MEAN CORPUSCULAR HEMOGLOBIN 31.1 pg (27.0-31.0); MEAN PLATELET VOLUME 10.2 fL (7.2-11.7); RBC 3.12 Mil/uL (3.80-5.20); RED CELL DISTRIBUTION WIDTH 13.8 % (11.5-14.5); WHITE BLOOD COUNT 8.8 K/uL (4.8-10.8)
[2018-07-12 17:33] LABS: MEAN CELL VOLUME 94.2 fL (81.0-99.0)
[2018-07-12] MEDS: Dextrose 5%/0.9% NS 1,000 ML IV SCH ×2 (20:07→22:33)
--- NOTE | 2018-07-12 22:10 | CP.PCM.PN ---
Subjective - Date & Time of Evaluation Date of Evaluation: 07/12/18 Time of Evaluation: 22:08 - Subjective Subjective: Patient complaining of generalized body pain Still having more difficult time in swallowing No abdominal pain. Hungry very poor Poor appetite Patient making good urine otherwise. On examination: Heartbeat is sinus rhythm noted Blood pressure stable. Chest good air entry no wheezing noted. Mild tachypnea Currently patient is on IV fluid Labs reviewed Potassium level is slightly on the low side Assessment and recommendation: Patient is a 88-year-old female with a history of hypothyroidism. Hypertension Osteoarthritis. Admitted with worsening hypothyroidism Acute renal failure. Hyperkalemia Also associate with the severe bradycardia, improving at this time. Most likely metabolic in character. Patient also had severe altered mental status improving with current treatment. Urine culture positive for gram-negative, awaiting for the culture. On antibiotic Objective - Vital Signs/Intake and Output Vital Signs (last 24 hours): Temp Pulse Resp BP Pulse Ox 99.8 F H 100 H 18 164/73 H 96 07/12/18 15:00 07/12/18 15:00 07/12/18 15:00 07/12/18 15:00 07/12/18 15:00 Intake and Output: 07/12/18 07/13/18 18:59 06:59 Intake Total 450 Output Total 0 Balance 450 - Medications Medications: Current Medications Albuterol/Ipratropium (Duoneb 3 Mg/0.5 Mg (3 Ml) Ud) 3 ml INH RQ6 [facility] Last Admin: 07/12/18 14:11 Dose: Not Given Alprazolam (Xanax) 0.25 mg PO BID [facility] Last Admin: 07/12/18 17:12 Dose: 0.25 mg Benzocaine/Menthol (Cepacol Sore Throat) 1 melinda MT TID PRN PRN Reason: Sore Throat Last Admin: 07/12/18 20:44 Dose: 1 melinda Famotidine (Pepcid) 20 mg PO DAILY [facility] Last Admin: 07/12/18 11:38 Dose: 20 mg Heparin Sodium (Porcine) (Heparin) 5,000 units SC Q8 [facility] Last Admin: 07/12/18 13:29 Dose: 5,000 units Dextrose/Sodium Chloride (Dextrose 5%/0.9% Ns 1000 Ml) 1,000 mls @ 75 mls/hr IV .[id number] [facility] Last Admin: 07/12/18 20:07 Dose: Not Given Levothyroxine Sodium (Synthroid) 100 mcg IVP DAILY [facility] Last Admin: 07/12/18 11:38 Dose: 100 mcg Lidocaine HCl (Lidocaine 2% Viscous) 15 ml PO TID PRN PRN Reason: pain Last Admin: 07/12/18 15:49 Dose: 15 ml Rosuvastatin Calcium (Crestor) 2.5 mg PO HS [facility] Last Admin: 07/11/18 22:34 Dose: 2.5 mg - Labs Labs: 07/12/18 17:21 07/12/18 06:10 PT 17.0 SECONDS (9.7-12.2) H 07/10/18 16:56 INR 1.6 07/10/18 16:56 APTT 31 SECONDS (21-34) 07/10/18 16:56
[2018-07-12] MEDS: Tramadol 25 mg PO PRN (22:29)
[2018-07-12] MEDS: Rosuvastatin Calcium 2.5 mg Tab PO SCH (22:30)
[2018-07-13] MEDS: Albuterol-Ipratrop 3 mg / 0.5 (3 ml) UD INH SCH ×3 (01:26→13:20)
[2018-07-13 08:44] LABS: BASO # 0.1 K/uL (0.0-0.2); BASO % 0.8 % (0.0-2.0); EOS # 0.1 K/uL (0.0-0.7); EOS % 1.1 % (0.0-4.0); LYMPH # 1.3 K/uL (1.0-4.3); LYMPH % 18.4 % (20.0-40.0); MEAN CELL VOLUME 94.8 fL (81.0-99.0); MEAN CORPUSCULAR HEMOGLOBIN 31.7 pg (27.0-31.0); MEAN CORPUSCULAR HGB CONC 33.5 g/dL (33.0-37.0); MEAN PLATELET VOLUME 9.8 fL (7.2-11.7); MONO # 0.6 K/uL (0.0-0.8); MONO % 8.3 % (0.0-10.0); NEUT # 4.9 K/uL (1.8-7.0); NEUT % 71.4 % (50.0-75.0); RBC 2.83 Mil/uL (3.80-5.20); RED CELL DISTRIBUTION WIDTH 14.1 % (11.5-14.5); WHITE BLOOD COUNT 6.9 K/uL (4.8-10.8)
[2018-07-13 08:59] LABS: ALB/GLOB RATIO 1.1 (1.0-2.1); ALBUMIN 2.9 g/dL (3.5-5.0); CALCIUM 8.1 mg/dl (8.6-10.4)
[2018-07-13] MEDS: Levothyroxine 100 mcg (0.1 mg) Inj IVP SCH (10:14)
[2018-07-13] MEDS: Nystatin 100,000 Units/ml Oral Susp 5 ml UD PO SCH ×4 (10:15→21:18)
[2018-07-13] MEDS: Tramadol 25 mg PO PRN (10:22)
--- NOTE | 2018-07-13 12:48 | CARD ---
APPROVED REPORT Date of service: 07/10/2018 EKG Measurement Heart [id number] <Conclusion> Junctional bradycardia Low voltage QRS Nonspecific ST abnormality Abnormal ECG
--- NOTE | 2018-07-13 12:48 | CARD ---
APPROVED REPORT Date of service: 07/10/2018 EKG Measurement Heart [id number] <Conclusion> Junctional rhythm with premature supraventricular complexes Low voltage QRS Nonspecific ST and T wave abnormality Abnormal ECG
--- NOTE | 2018-07-13 13:40 | CP.PCM.PN ---
Subjective - Date & Time of Evaluation Date of Evaluation: 07/13/18 Time of Evaluation: 13:38 - Subjective Subjective: More alert less edematous KETTY continues to resolve UO not recorded K stabilized Objective - Vital Signs/Intake and Output Vital Signs (last 24 hours): Temp Pulse Resp BP Pulse Ox 99.7 F H 84 18 151/67 H 96 07/13/18 07:00 07/13/18 10:00 07/13/18 07:00 07/13/18 07:00 07/13/18 07:00 Intake and Output: 07/13/18 07/13/18 06:59 18:59 Intake Total 360 Output Total 250 Balance 110 - Medications Medications: Current Medications Albuterol/Ipratropium (Duoneb 3 Mg/0.5 Mg (3 Ml) Ud) 3 ml INH RQ6 [facility] Last Admin: 07/13/18 07:55 Dose: 3 ml Alprazolam (Xanax) 0.25 mg PO BID [facility] Last Admin: 07/13/18 10:15 Dose: 0.25 mg Benzocaine/Menthol (Cepacol Sore Throat) 1 melinda MT TID PRN PRN Reason: Sore Throat Last Admin: 07/12/18 20:44 Dose: 1 melinda Famotidine (Pepcid) 20 mg PO DAILY [facility] Last Admin: 07/13/18 10:14 Dose: 20 mg Heparin Sodium (Porcine) (Heparin) 5,000 units SC Q8 [facility] Last Admin: 07/13/18 13:33 Dose: 5,000 units Dextrose/Sodium Chloride (Dextrose 5%/0.9% Ns 1000 Ml) 1,000 mls @ 45 mls/hr IV .[id number] [facility] Last Admin: 07/12/18 22:33 Dose: 45 mls/hr Levothyroxine Sodium (Synthroid) 100 mcg IVP DAILY [facility] Last Admin: 07/13/18 10:14 Dose: 100 mcg Lidocaine HCl (Lidocaine 2% Viscous) 15 ml PO TID PRN PRN Reason: pain Last Admin: 07/13/18 05:21 Dose: 15 ml Nystatin (Nystatin Oral Susp) 5 ml PO QID [facility] Last Admin: 07/13/18 10:15 Dose: 5 ml Rosuvastatin Calcium (Crestor) 2.5 mg PO HS [facility] Last Admin: 07/12/18 22:30 Dose: 2.5 mg Tramadol HCl (Ultram) 25 mg PO Q12 PRN PRN Reason: Pain, moderate (4-7) Last Admin: 07/13/18 10:22 Dose: 25 mg - Labs Labs: 07/13/18 08:31 07/13/18 08:31 PT 17.0 SECONDS (9.7-12.2) H 07/10/18 16:56 INR 1.6 07/10/18 16:56 APTT 31 SECONDS (21-34) 07/10/18 16:56 - Constitutional Appears: No Acute Distress, Chronically Ill - Head Exam Head Exam: ATRAUMATIC, NORMAL INSPECTION - Eye Exam Eye Exam: EOMI, Normal appearance - Neck Exam Neck Exam: Normal Inspection. absent: Tenderness - Respiratory Exam Respiratory Exam: Clear to Ausculation Bilateral, NORMAL BREATHING PATTERN - Cardiovascular Exam Cardiovascular Exam: REGULAR RHYTHM, +S1 - GI/Abdominal Exam GI & Abdominal Exam: Soft. absent: Tenderness - Extremities Exam Extremities Exam: Normal Inspection. absent: Tenderness - Neurological Exam Neurological Exam: Awake, CN II-XII Intact - Skin Skin Exam: Dry, Warm Assessment and Plan (1) KETTY (acute kidney injury) Status: Acute (2) Hypokalemia Status: Acute (3) Fall Status: Acute - Assessment and Plan (Free Text) Plan: Continue to monitor renal function, lytes Same other meds/ mild IV hydration
[2018-07-13] MEDS: Dextrose 5%/0.9% NS 1,000 ML IV SCH (21:17)
[2018-07-13] MEDS: Rosuvastatin Calcium 2.5 mg Tab PO SCH (21:19)
--- NOTE | 2018-07-13 23:24 | CP.PCM.PN ---
Subjective - Date & Time of Evaluation Date of Evaluation: 07/13/18 Time of Evaluation: 23:23 - Subjective Subjective: Patient is now more awake and responding. He wanted to go back to rehab again. She is not in any distress. Currently receiving IV fluid 45 cc/mL. Chest good air entry Regular heart sounds noted Nontender abdomen. No pedal edema Will discontinue the IV fluid no. Out of bed to chair. Possible discharge to long-term tomorrow Repeat the labs tomorrow Objective - Vital Signs/Intake and Output Vital Signs (last 24 hours): Temp Pulse Resp BP Pulse Ox 98.5 F 87 18 149/74 96 07/13/18 15:00 07/13/18 18:00 07/13/18 15:00 07/13/18 15:00 07/13/18 15:00 Intake and Output: 07/13/18 07/14/18 18:59 06:59 Output Total 500 Balance -500 - Medications Medications: Current Medications Albuterol/Ipratropium (Duoneb 3 Mg/0.5 Mg (3 Ml) Ud) 3 ml INH RQ6 [facility] Last Admin: 07/13/18 13:20 Dose: 3 ml Alprazolam (Xanax) 0.25 mg PO BID [facility] Last Admin: 07/13/18 17:44 Dose: 0.25 mg Benzocaine/Menthol (Cepacol Sore Throat) 1 melinda MT TID PRN PRN Reason: Sore Throat Last Admin: 07/12/18 20:44 Dose: 1 melinda Famotidine (Pepcid) 20 mg PO DAILY [facility] Last Admin: 07/13/18 10:14 Dose: 20 mg Heparin Sodium (Porcine) (Heparin) 5,000 units SC Q8 [facility] Last Admin: 07/13/18 21:18 Dose: 5,000 units Levothyroxine Sodium (Synthroid) 100 mcg IVP DAILY [facility] Last Admin: 07/13/18 10:14 Dose: 100 mcg Lidocaine HCl (Lidocaine 2% Viscous) 15 ml PO TID PRN PRN Reason: pain Last Admin: 07/13/18 05:21 Dose: 15 ml Nystatin (Nystatin Oral Susp) 5 ml PO QID [facility] Last Admin: 07/13/18 21:18 Dose: 5 ml Rosuvastatin Calcium (Crestor) 2.5 mg PO HS [facility] Last Admin: 07/13/18 21:19 Dose: 2.5 mg Tramadol HCl (Ultram) 25 mg PO Q12 PRN PRN Reason: Pain, moderate (4-7) Last Admin: 07/13/18 10:22 Dose: 25 mg - Labs Labs: 07/13/18 08:31 07/13/18 08:31 PT 17.0 SECONDS (9.7-12.2) H 07/10/18 16:56 INR 1.6 07/10/18 16:56 APTT 31 SECONDS (21-34) 07/10/18 16:56
[2018-07-14] MEDS: Albuterol-Ipratrop 3 mg / 0.5 (3 ml) UD INH SCH ×4 (01:15→19:14)
[2018-07-14 08:32] LABS: BASO % 0.7 % (0.0-2.0); EOS # 0.2 K/uL (0.0-0.7); EOS % 3.3 % (0.0-4.0); HEMOGLOBIN 9.1 g/dL (11.0-16.0); LYMPH # 1.6 K/uL (1.0-4.3); LYMPH % 24.9 % (20.0-40.0); MEAN CELL VOLUME 95.7 fL (81.0-99.0); MEAN CORPUSCULAR HEMOGLOBIN 31.5 pg (27.0-31.0); MEAN CORPUSCULAR HGB CONC 32.9 g/dL (33.0-37.0); MEAN PLATELET VOLUME 9.9 fL (7.2-11.7); MONO # 0.5 K/uL (0.0-0.8); MONO % 7.8 % (0.0-10.0); NEUT % 63.3 % (50.0-75.0); RBC 2.9 Mil/uL (3.80-5.20); RED CELL DISTRIBUTION WIDTH 13.8 % (11.5-14.5); WHITE BLOOD COUNT 6.3 K/uL (4.8-10.8)
--- NOTE | 2018-07-14 08:49 | CP.PCM.PN ---
Subjective - Date & Time of Evaluation Date of Evaluation: 07/14/18 Time of Evaluation: 08:47 - Subjective Subjective: Patient is now more awake and responding and able to communicate. She is also moving all 4 extremities without any difficulty. But having slight cough, mild tachypnea noted. Afebrile now. Patient still having some difficult time in swallowing with the pain in the back of the throat. On examination: Vital signs are stable otherwise. Test bilateral good air entry, no wheezing or rales noted Heart sounds are regular Abdomen soft nontender edema in the legs negative Labs not done today yesterday labs reviewed Assessment and recommendation: Patient is a 88-year-old female with a history of hypertension hypercholesterolemia hypothyroidism admitted with the acute renal failure and associated hyperkalemia and also patient had severe bradycardia improved markedly We will repeat the x-ray today the chest x-ray is normal possibly will plan for discharge to shelter today. Continue the current treatment oxygen antihypertensives. Follow the thyroid levels. And will follow the patient Objective - Vital Signs/Intake and Output Vital Signs (last 24 hours): Temp Pulse Resp BP Pulse Ox 98.9 F 85 18 148/71 99 07/14/18 07:00 07/14/18 07:00 07/14/18 07:00 07/14/18 07:00 07/14/18 07:00 Intake and Output: 07/14/18 07/14/18 06:59 18:59 Intake Total 200 Output Total 500 Balance -300 - Medications Medications: Current Medications Albuterol/Ipratropium (Duoneb 3 Mg/0.5 Mg (3 Ml) Ud) 3 ml INH RQ6 [facility] Last Admin: 07/14/18 08:12 Dose: 3 ml Alprazolam (Xanax) 0.25 mg PO BID [facility] Last Admin: 07/13/18 17:44 Dose: 0.25 mg Benzocaine/Menthol (Cepacol Sore Throat) 1 melinda MT TID PRN PRN Reason: Sore Throat Last Admin: 07/12/18 20:44 Dose: 1 melinda Famotidine (Pepcid) 20 mg PO DAILY [facility] Last Admin: 07/13/18 10:14 Dose: 20 mg Heparin Sodium (Porcine) (Heparin) 5,000 units SC Q8 [facility] Last Admin: 07/14/18 05:17 Dose: 5,000 units Levothyroxine Sodium (Synthroid) 100 mcg IVP DAILY [facility] Last Admin: 07/13/18 10:14 Dose: 100 mcg Lidocaine HCl (Lidocaine 2% Viscous) 15 ml PO TID PRN PRN Reason: pain Last Admin: 07/13/18 05:21 Dose: 15 ml Nystatin (Nystatin Oral Susp) 5 ml PO QID [facility] Last Admin: 07/13/18 21:18 Dose: 5 ml Rosuvastatin Calcium (Crestor) 2.5 mg PO HS [facility] Last Admin: 07/13/18 21:19 Dose: 2.5 mg Tramadol HCl (Ultram) 25 mg PO Q12 PRN PRN Reason: Pain, moderate (4-7) Last Admin: 07/13/18 10:22 Dose: 25 mg - Labs Labs: 07/14/18 08:20 07/13/18 08:31 PT 17.0 SECONDS (9.7-12.2) H 07/10/18 16:56 INR 1.6 07/10/18 16:56 APTT 31 SECONDS (21-34) 07/10/18 16:56
[2018-07-14 09:00] LABS: ALB/GLOB RATIO 1.1 (1.0-2.1); ALBUMIN 2.8 g/dL (3.5-5.0); CALCIUM 8.3 mg/dl (8.6-10.4)
--- NOTE | 2018-07-14 10:10 | CP.PCM.PN ---
Subjective - Date & Time of Evaluation Date of Evaluation: 07/14/18 Time of Evaluation: 10:08 - Subjective Subjective: feels much better creat decreasing lytes acceptable BP stable Objective - Vital Signs/Intake and Output Vital Signs (last 24 hours): Temp Pulse Resp BP Pulse Ox 98.9 F 85 18 148/71 99 07/14/18 07:00 07/14/18 07:00 07/14/18 07:00 07/14/18 07:00 07/14/18 07:00 Intake and Output: 07/14/18 07/14/18 06:59 18:59 Intake Total 200 Output Total 500 Balance -300 - Medications Medications: Current Medications Albuterol/Ipratropium (Duoneb 3 Mg/0.5 Mg (3 Ml) Ud) 3 ml INH RQ6 [facility] Last Admin: 07/14/18 08:12 Dose: 3 ml Alprazolam (Xanax) 0.25 mg PO BID [facility] Last Admin: 07/13/18 17:44 Dose: 0.25 mg Benzocaine/Menthol (Cepacol Sore Throat) 1 melinda MT TID PRN PRN Reason: Sore Throat Last Admin: 07/12/18 20:44 Dose: 1 melinda Famotidine (Pepcid) 20 mg PO DAILY [facility] Last Admin: 07/13/18 10:14 Dose: 20 mg Heparin Sodium (Porcine) (Heparin) 5,000 units SC Q8 [facility] Last Admin: 07/14/18 05:17 Dose: 5,000 units Levothyroxine Sodium (Synthroid) 100 mcg IVP DAILY [facility] Last Admin: 07/13/18 10:14 Dose: 100 mcg Lidocaine HCl (Lidocaine 2% Viscous) 15 ml PO TID PRN PRN Reason: pain Last Admin: 07/13/18 05:21 Dose: 15 ml Nystatin (Nystatin Oral Susp) 5 ml PO QID [facility] Last Admin: 07/13/18 21:18 Dose: 5 ml Rosuvastatin Calcium (Crestor) 2.5 mg PO HS [facility] Last Admin: 07/13/18 21:19 Dose: 2.5 mg Tramadol HCl (Ultram) 25 mg PO Q12 PRN PRN Reason: Pain, moderate (4-7) Last Admin: 07/13/18 10:22 Dose: 25 mg - Labs Labs: 07/14/18 08:20 07/14/18 08:20 PT 17.0 SECONDS (9.7-12.2) H 07/10/18 16:56 INR 1.6 07/10/18 16:56 APTT 31 SECONDS (21-34) 07/10/18 16:56 - Constitutional Appears: No Acute Distress, Chronically Ill - Head Exam Head Exam: ATRAUMATIC, NORMAL INSPECTION - Eye Exam Eye Exam: EOMI, Normal appearance - Neck Exam Neck Exam: Normal Inspection. absent: Tenderness - Cardiovascular Exam Cardiovascular Exam: REGULAR RHYTHM, +S1 - GI/Abdominal Exam GI & Abdominal Exam: Soft. absent: Tenderness - Extremities Exam Extremities Exam: Normal Inspection. absent: Tenderness - Neurological Exam Neurological Exam: Awake, CN II-XII Intact - Skin Skin Exam: Dry, Warm Assessment and Plan (1) KETTY (acute kidney injury) Status: Resolved (2) Hypokalemia Status: Acute (3) Fall Status: Acute - Assessment and Plan (Free Text) Plan: KETTY resolved; lytes stabilized Will see again as needed
[2018-07-14] MEDS: Levothyroxine 100 mcg (0.1 mg) Inj IVP SCH (11:37)
[2018-07-14] MEDS: Nystatin 100,000 Units/ml Oral Susp 5 ml UD PO SCH ×4 (11:37→22:15)
--- NOTE | 2018-07-14 15:42 | RAD ---
Date of service: 07/14/2018 HISTORY: CHF COMPARISON: Comparison chest 07/10/2018. Comparison also made with prior CT scan chest dated 07/24/2017 FINDINGS: LUNGS: There appears to be some very mild pulmonary venous congestive changes. PLEURA: No significant pleural effusion identified, no pneumothorax apparent. CARDIOVASCULAR: Mild atherosclerotic calcification present. Heart appears upper limits of normal in size. OSSEOUS STRUCTURES: Previously described right 3rd and 4th rib fractures are not visualized on this study VISUALIZED UPPER ABDOMEN: Normal. OTHER FINDINGS: None. IMPRESSION: Mild pulmonary venous congestive changes.
[2018-07-14] MEDS: Rosuvastatin Calcium 2.5 mg Tab PO SCH (22:15)
[2018-07-15] MEDS: Albuterol-Ipratrop 3 mg / 0.5 (3 ml) UD INH SCH ×4 (02:42→19:33)
--- NOTE | 2018-07-15 08:18 | CP.PCM.PN ---
Subjective - Date & Time of Evaluation Date of Evaluation: 07/15/18 Time of Evaluation: 08:17 - Subjective Subjective: Patient today is feeling slightly better. Respiration is also improving. Currently off IV fluid. She is able to drink and eat better. But she is complaining of constipation, did not have any BM for so far On examination: Vital signs are stable. Chest good air entry Heart sounds are regular Abdominal tenderness negative. Pedal edema negative. Today patient labs reviewed Creatinine level is 1.3 otherwise stable. Assessment and recommendation: 87-year-old female with a history of hypertension, hypothyroidism, chronic co nstipation, history of UTI, hypokalemia, urinary tract infection, osteoarthritis, history of recurrent fall half-way resident, now admitted with altered mental status. Patient admitted with acute renal insufficiency with hyperkalemia. Severe hypothyroidism, currently on treatment. Severe constipation noted. We will add a Dulcolax suppository. Colace. We will repeat the labs tomorrow. Patient is stable tomorrow we will discharge the patient to half-way tomorrow Objective - Vital Signs/Intake and Output Vital Signs (last 24 hours): Temp Pulse Resp BP Pulse Ox 97.8 F 84 18 111/74 97 07/15/18 00:00 07/15/18 01:00 07/15/18 00:00 07/15/18 00:00 07/15/18 00:00 Intake and Output: 07/15/18 07/15/18 06:59 18:59 Intake Total 41 Output Total 800 Balance -759 - Medications Medications: Current Medications Albuterol/Ipratropium (Duoneb 3 Mg/0.5 Mg (3 Ml) Ud) 3 ml INH RQ6 [facility] Last Admin: 07/15/18 07:42 Dose: 3 ml Alprazolam (Xanax) 0.25 mg PO BID [facility] Last Admin: 07/14/18 18:07 Dose: 0.25 mg Benzocaine/Menthol (Cepacol Sore Throat) 1 melinda MT TID PRN PRN Reason: Sore Throat Last Admin: 07/12/18 20:44 Dose: 1 melinda Bisacodyl (Dulcolax) 10 mg TN ONCE ONE Stop: 07/15/18 08:17 Famotidine (Pepcid) 20 mg PO DAILY [facility] Last Admin: 07/14/18 11:37 Dose: 20 mg Heparin Sodium (Porcine) (Heparin) 5,000 units SC Q8 [facility] Last Admin: 07/15/18 05:16 Dose: 5,000 units Levothyroxine Sodium (Synthroid) 100 mcg IVP DAILY [facility] Last Admin: 07/14/18 11:37 Dose: 100 mcg Lidocaine HCl (Lidocaine 2% Viscous) 15 ml PO TID PRN PRN Reason: pain Last Admin: 07/13/18 05:21 Dose: 15 ml Nystatin (Nystatin Oral Susp) 5 ml PO QID [facility] Last Admin: 07/14/18 22:15 Dose: 5 ml Rosuvastatin Calcium (Crestor) 2.5 mg PO HS [facility] Last Admin: 07/14/18 22:15 Dose: 2.5 mg Tramadol HCl (Ultram) 25 mg PO Q12 PRN PRN Reason: Pain, moderate (4-7) Last Admin: 07/13/18 10:22 Dose: 25 mg - Labs Labs: 07/14/18 08:20 07/14/18 08:20 PT 17.0 SECONDS (9.7-12.2) H 07/10/18 16:56 INR 1.6 07/10/18 16:56 APTT 31 SECONDS (21-34) 07/10/18 16:56
[2018-07-15 08:31] LABS: BASO % 0.6 % (0.0-2.0); EOS # 0.4 K/uL (0.0-0.7); EOS % 6.3 % (0.0-4.0); HEMOGLOBIN 9.5 g/dL (11.0-16.0); LYMPH # 2.6 K/uL (1.0-4.3); MEAN CELL VOLUME 94.2 fL (81.0-99.0); MEAN CORPUSCULAR HEMOGLOBIN 31.6 pg (27.0-31.0); MEAN CORPUSCULAR HGB CONC 33.6 g/dL (33.0-37.0); MEAN PLATELET VOLUME 9.5 fL (7.2-11.7); MONO # 0.5 K/uL (0.0-0.8); MONO % 7.4 % (0.0-10.0); NEUT # 2.9 K/uL (1.8-7.0); NEUT % 45.7 % (50.0-75.0); RED CELL DISTRIBUTION WIDTH 13.7 % (11.5-14.5); WHITE BLOOD COUNT 6.4 K/uL (4.8-10.8)
[2018-07-15] MEDS: Nystatin 100,000 Units/ml Oral Susp 5 ml UD PO SCH ×4 (09:08→21:22)
[2018-07-15] MEDS: Levothyroxine 100 mcg (0.1 mg) Inj IVP SCH (09:09)
[2018-07-15] MEDS: Rosuvastatin Calcium 2.5 mg Tab PO SCH (21:22)
[2018-07-16 00:45] VITALS: O2SAT 97
[2018-07-16] MEDS: Albuterol-Ipratrop 3 mg / 0.5 (3 ml) UD INH SCH ×2 (02:22→07:40)
--- NOTE | 2018-07-16 08:24 | CP.PCM.DIS ---
Provider - Provider Date of Admission: 07/10/18 17:36 Attending physician: Marvin Herrera MD Consults: 07/10/18 21:21 Nephrology Consult Routine Comment: Consulting Provider: Mauricio Mccabe Consulting Physician: Mauricio Mccabe Reason for Consult: ARF Neurology Consult Routine Comment: Consulting Provider: Phil Short Consulting Physician: Phil Short Reason for Consult: ams Time Spent in preparation of Discharge (in minutes): 45 Hospital Course - Lab Results Lab Results: Micro Results 07/11/18 02:51 Blood Blood Culture - Final NO GROWTH AFTER 5 DAYS 07/11/18 02:51 Blood Gram Stain - Final TEST NOT PERFORMED 07/11/18 02:51 Blood Blood Culture - Final NO GROWTH AFTER 5 DAYS 07/11/18 02:51 Blood Gram Stain - Final TEST NOT PERFORMED 07/12/18 14:30 Naris MRSA Culture - Final MRSA NOT DETECTED 07/10/18 18:15 Urine,Clean Catch Urine Culture - Final Gram Negative Joss 07/11/18 02:51 Naris MRSA Culture (Admit) - Final MRSA NOT DETECTED Most Recent Lab Values WBC 6.4 K/uL (4.8-10.8) 07/15/18 08:26 RBC 3.00 Mil/uL (3.80-5.20) L 07/15/18 08:26 Hgb 9.5 g/dL (11.0-16.0) L 07/15/18 08:26 Hct 28.3 % (34.0-47.0) L 07/15/18 08:26 MCV 94.2 fL (81.0-99.0) 07/15/18 08:26 MCH 31.6 pg (27.0-31.0) H 07/15/18 08:26 MCHC 33.6 g/dL (33.0-37.0) 07/15/18 08:26 RDW 13.7 % (11.5-14.5) 07/15/18 08:26 Plt Count 178 K/uL (130-400) 07/15/18 08:26 MPV 9.5 fL (7.2-11.7) 07/15/18 08:26 Neut % (Auto) 45.7 % (50.0-75.0) L 07/15/18 08:26 Lymph % (Auto) 40.0 % (20.0-40.0) 07/15/18 08:26 Winn % (Auto) 7.4 % (0.0-10.0) 07/15/18 08:26 Eos % (Auto) 6.3 % (0.0-4.0) H 07/15/18 08:26 Baso % (Auto) 0.6 % (0.0-2.0) 07/15/18 08:26 Neut # (Auto) 2.9 K/uL (1.8-7.0) 07/15/18 08:26 Lymph # (Auto) 2.6 K/uL (1.0-4.3) 07/15/18 08:26 Winn # (Auto) 0.5 K/uL (0.0-0.8) 07/15/18 08:26 Eos # (Auto) 0.4 K/uL (0.0-0.7) 07/15/18 08:26 Baso # (Auto) 0.0 K/uL (0.0-0.2) 07/15/18 08:26 ESR 45 mm/hr (0-20) H 07/11/18 06:26 PT 17.0 SECONDS (9.7-12.2) H 07/10/18 16:56 INR 1.6 07/10/18 16:56 APTT 31 SECONDS (21-34) 07/10/18 16:56 pO2 57 mm/Hg (30-55) H 07/10/18 23:17 VBG pH 7.35 (7.32-7.43) 07/10/18 23:17 VBG pCO2 37 mmHg (40-60) L 07/10/18 23:17 VBG HCO3 21.0 mmol/L 07/10/18 23:17 VBG Total CO2 21.5 mmol/L (22-28) L 07/10/18 23:17 VBG O2 Sat (Calc) 93.3 % (40-65) H 07/10/18 23:17 VBG Base Excess -4.7 mmol/L (0.0-2.0) L 07/10/18 23:17 VBG Potassium 4.5 mmol/L (3.6-5.2) 07/10/18 23:17 Sodium 138.0 mmol/l (132-148) 07/10/18 23:17 Chloride 104.0 mmol/L (98-107) 07/10/18 23:17 Glucose 169 mg/dl (65-105) H 07/10/18 23:17 Lactate 1.5 mmol/L (0.7-2.1) 07/10/18 23:17 Crit Value Called To Dr cuevas 07/10/18 17:16 Crit Value Called By Pradeep meek 07/10/18 17:16 Crit Value Read Back Y 07/10/18 17:16 Blood Gas Notified Time 1719 07/10/18 17:16 Sodium 142 mmol/L (132-148) 07/14/18 08:20 Potassium 3.6 mmol/L (3.6-5.2) 07/14/18 08:20 Chloride 109 mmol/L (98-107) H 07/14/18 08:20 Carbon Dioxide 28 mmol/L (22-30) 07/14/18 08:20 Anion Gap 8 (10-20) L 07/14/18 08:20 BUN 28 mg/dL (7-17) H 07/14/18 08:20 Creatinine 1.3 mg/dL (0.7-1.2) H 07/14/18 08:20 Est GFR ( Amer) 47 07/14/18 08:20 Est GFR (Non-Af Amer) 39 07/14/18 08:20 POC Glucose (mg/dL) 103 mg/dL (65-110) 07/16/18 06:48 Random Glucose 114 mg/dL (65-105) H 07/14/18 08:20 Calcium 8.3 mg/dl (8.6-10.4) L 07/14/18 08:20 Phosphorus 2.9 mg/dL (2.5-4.5) 07/14/18 08:20 Magnesium 2.2 mg/dL (1.6-2.3) 07/14/18 08:20 Total Bilirubin 0.5 mg/dL (0.2-1.3) 07/14/18 08:20 AST 14 U/L (14-36) 07/14/18 08:20 ALT 15 U/L (9-52) 07/14/18 08:20 Alkaline Phosphatase 58 U/L (38-126) 07/14/18 08:20 Ammonia < 9 umol/L (9-33) L 07/11/18 08:38 Troponin I 0.0440 ng/mL (0.00-0.120) 07/10/18 16:56 C-Reactive Protein 15.70 mg/L (0.0-9.9) H 07/11/18 06:26 Total Protein 5.4 g/dL (6.3-8.3) L 07/14/18 08:20 Albumin 2.8 g/dL (3.5-5.0) L 07/14/18 08:20 Globulin 2.6 gm/dL (2.2-3.9) 07/14/18 08:20 Albumin/Globulin Ratio 1.1 (1.0-2.1) 07/14/18 08:20 Vitamin B12 704 pg/mL (239-931) 07/11/18 06:26 Folate 5.9 ng/mL 07/11/18 06:26 Free T4 1.34 ng/dL (0.78-2.19) 07/12/18 06:10 Free T3 pg/mL 1.91 pg/mL (2.77-5.27) L 07/12/18 06:10 TSH 3rd Generation 4.37 mIU/L (0.46-4.68) 07/12/18 06:10 Prolactin 7.9 ng/mL (3.0-18.9) 07/11/18 06:26 Plasma Cortisol PM 103 ug/dL (1.7-14.1) H 07/10/18 21:00 Venous Blood Potassium 4.5 mmol/L (3.6-5.2) 07/10/18 23:17 Urine Color Yellow (YELLOW) 07/10/18 18:15 Urine Clarity Hazy (Clear) 07/10/18 18:15 Urine pH 5.0 (5.0-8.0) 07/10/18 18:15 Ur Specific [place] 1.014 (1.003-1.030) 07/10/18 18:15 Urine Protein 1+ mg/dL (NEGATIVE) H 07/10/18 18:15 Urine Glucose (UA) Normal mg/dL (Normal) 07/10/18 18:15 Urine Ketones Negative mg/dL (NEGATIVE) 07/10/18 18:15 Urine Blood Negative (NEGATIVE) 07/10/18 18:15 Urine Nitrate Negative (NEGATIVE) 07/10/18 18:15 Urine Bilirubin Negative (NEGATIVE) 07/10/18 18:15 Urine Urobilinogen Normal mg/dL (0.2-1.0) 07/10/18 18:15 Ur Leukocyte Esterase 3+ Jonelle/uL (Negative) H 07/10/18 18:15 Urine WBC (Auto) 236 /hpf (0-5) H 07/10/18 18:15 Urine RBC (Auto) 5 /hpf (0-3) H 07/10/18 18:15 Urine WBC Clumps (Auto) Many /hpf (NONE) H 07/10/18 18:15 Ur Squamous Epith Cells 7 /hpf (0-5) H 07/10/18 18:15 Urine Bacteria Rare (<OCC) 07/10/18 18:15 Urine Eosinophils Negative (NEGATIVE) 07/12/18 08:22 Ur Random Sodium 9 mmol/L 07/11/18 07:48 Serum Immunofixation Not detected (Not Detected) 07/11/18 08:38 Thyroperoxidase Ab 24 IU/mL (<9) H 07/11/18 08:38 - Hospital Course Hospital Course: Chief complaint: Altered mental status History of present illness: 88-year-old female with history of hypertension, hypothyroidism, chronic consti pation, history of UTI in the past, osteoarthritis, chronic pruritus brought in by the ambulance to the emergency room with altered mental status. According to the patient's daughter she was not feeling well since yesterday, she was eating small portions yesterday, and she was also having increasing discomfort, not sleeping well, more weak and drowsy yesterday. Symptoms got worse today, because of the worsening altered mental status ambulance was called during that time her heartbeat was on the 30s, immediately patient was not brought into the emergency room. In the emergency room patient was noted to have severe bradycardia, workup was positive for hyperkalemia worsening renal insufficiency, also very highly elevated TSH level. ICU evaluation was called in, and the patient was brought to the intensive care unit. Patient was given intravenously levothyroxine, also placed on dopamine, the heartbeat is slightly better now. But the patient is still not responding well. She is completely unarousable even with deep stimuli. But respiration is stable at this time. Patient was given fentanyl 50 mcg intravenously in the emergency room around 4 PM. Patient also had a CAT scan of the head and the results are pending at this time. I spoke to the patient's daughter who is next to her. According to the patient's daughter, in the assisted patient is able to only sit up mostly, having difficult time in getting up and walking, and associate with the increasing leg swelling. There was concern about recently swelling over the left side of the neck, 3 weeks ago patient was started on antibiotic, and the swelling subsided after that. At that time patient was not eating well also. Patient is a son who recently 2 months ago, but that she got the news recently, and since then she becoming more depressed also. Past medical history: Hypothyroidism, hypertension, insomnia, constipation, chronic pruritus, Deep venous thrombosis, Pulmonary embolism status post IVC filter Allergies: Erythromycin, sulfamethoxazole, ampicillin Surgical history hysterectomy many years ago. Family history significant for arthritis diabetes and heart disease Social history: Former smoker, no alcohol currently living in the senior [employer] house Current medications: Patient is a current medications reviewed from the chart Review of systems: Patient is now more drowsy. Not responding to stimuli at all. Vital signs otherwise stable. No leg swelling noted. In normal days the patient is awake and responding and able to talk comfortably. But she is having difficult time in getting up and walking, mostly bedridden, sometimes able to sit up Vital signs reviewed Dry mucosa noted Neck supple Chest bilateral good air entry Heart sounds are regular Abdomen soft Nontender. Extremities no pedal edema [employer], increasingly drowsy, unresponsive to deep stimuli now, arousable to very deep stimuli. Renal functions is worsening, K level is 6.6 now. Also elevated TSH level noted. Severe bradycardia noted in the EKG. X-ray clear chest noted Assessment and recommendation: 87-year-old female with a history of hypertension, hypothyroidism, chronic constipation, history of UTI, hypokalemia, urinary tract infection, osteoarthritis, history of recurrent fall assisted resident, now admitted with altered mental status. Patient is having acute renal insufficiency with hyperkalemia. Possible drug-induced secondary to recent antibiotic intake likely. Dehydration is also possible. Severe hypothyroidism, associated with the myxedema related [employer] symptoms likely also. Will get neurological evaluation Renal evaluation Treatment for hyperkalemia Renal function monitoring. Sonogram of the abdomen recommended current CAT scan of the abdomen also recommended. DVT and GI prophylaxis and will follow the patient Course in the hospital: Patient was initially admitted to the intensive care unit with the severe bradycardia, and a very highly elevated potassium level. Patient started on intravenous IV fluid, and she was also started on levothyroxine IV thinking of myxedema coma. Patient had a CT scan of the head which was negative. She also had a CT scan of the abdomen and pelvis which was negative. Urine culture was positive for gram-negative but the colony count was less than 100,000 Patient improved markedly. IV fluid was continued. Clinically she is more stable now. Patient medication is adjusted. Clinically she is stable to be discharged to assisted today. Patient will need to continue the physical therapy. Subacute rehab recommended. Physical exercise and treatment recommended. Out of bed to chair recommended. Also recommended to have the repeat blood test results especially to check the thyroid level, TSH, and potassium level and renal functions. Final diagnosis: Acute renal insufficiency with the severe hyperkalemia secondary to dehydration and contributed sinus bradycardia. Severe sinus bradycardia with hypotension. Acute worsening hypothyroidism. Altered mental status secondary to metabolic encephalopathy She will be discharged and she will follow-up with the Dr. Puri in the assisted Discharge Exam - Head Exam Head Exam: ATRAUMATIC, NORMAL INSPECTION Discharge Plan - Follow Up Plan Condition: CRITICAL Disposition: HOME/ ROUTINE Instructions: Hypokalemia (DC), Acute Kidney Failure (DC) Referrals: Mauricio Mccabe MD [Staff Provider] - Phil Short MD [Staff Provider] - Marvin Herrera MD [Staff Provider] -
[2018-07-16 08:46] VITALS: BP 169/75; PULSE 74; RESP 18; TEMP 98.1
[2018-07-16] MEDS: Nystatin 100,000 Units/ml Oral Susp 5 ml UD PO SCH (09:18)
[2018-07-17] MEDS ORDERED: Levothyroxine 112 MCG TAB PO SCH (06:30)
== END 2018-07-16 13:23 | DRG 698 ==
LOC: C.ER 16:37 → C.9I 17:36 → C.5S 07-12 14:11
PROVIDERS: ADMIT Internal Medicine; ATTEND Internal Medicine
DX: N28.9 Disorder of kidney and ureter, unspecified (principal); G93.41 Metabolic encephalopathy; N39.0 Urinary tract infection, site not specified; N17.9 Acute kidney failure, unspecified; I10 Essential (primary) hypertension; Z87.891 Personal history of nicotine dependence; K59.00 Constipation, unspecified; G47.30 Sleep apnea, unspecified; E87.6 Hypokalemia; E86.0 Dehydration; E78.5 Hyperlipidemia, unspecified; E87.5 Hyperkalemia; F03.90 Unspecified dementia, unspecified severity, without behavioral disturbance, psychotic disturbance, mood disturbance, and anxiety; E66.9 Obesity, unspecified; Z68.39 Body mass index [BMI] 39.0-39.9, adult; Z86.711 Personal history of pulmonary embolism; R00.1 Bradycardia, unspecified